=== PATIENT | male | born 1960 | race Caucasian/White ===

== ENCOUNTER → 2016-02-25 | Outpatient (CLI) | payer OTHER ==
[~2016-02-25] MED LIST: ASPI81TA11 PO; CARB200T PO; ENAL5TAB PO; LIPI40TA PO; METO25TA3 PO; NITR0.4S SL; PLAV75TA29 PO; TEGR200T PO
[2016-02-25 12:18] LABS: HEMATOCRIT 43.9 % (39.0-51.0); MEAN CELL VOLUME 90.7 FL (80.0-100.0); MEAN CORPUSCULAR HEMOGLOBIN 30.4 PG (27.0-34.0); MEAN CORPUSCULAR HGB CONC 33.5 % (32.0-36.0); PLATELET COUNT 313 TH/MM3 (150-450); RED BLOOD COUNT 4.84 MIL/MM3 (4.50-5.90); RED CELL DISTRIBUTION WIDTH 14.1 % (11.6-17.2); REVIEW FLAG FINAL; WHITE BLOOD COUNT 15.9 TH/MM3 (4.0-11.0)
[2016-02-25 12:45] LABS: ALT (GPT) 31 U/L (12-78); ANION GAP 8 MEQ/L (5-15); AST (GOT) 14 U/L (15-37); BICARBONATE 27.4 MEQ/L (21.0-32.0); BLOOD UREA NITROGEN 10 MG/DL (7-18); CHLORIDE 105 MEQ/L (98-107); GLOMERULAR FILTRATION RATE 80 ML/MIN (>89); GLUCOSE,FASTING 85 MG/DL (74-99); POTASSIUM 3.9 MEQ/L (3.5-5.1); SODIUM (NA) 140 MEQ/L (136-145)
[2016-02-25 12:55] LABS: ALKALINE PHOSPHATASE 84 U/L (45-117); HDL CHOLESTEROL 50.7 MG/DL (40.0-60.0); LDL CHOLESTEROL 137 MG/DL (0-99); TOTAL BILIRUBIN ADULT 0.5 MG/DL (0.2-1.0)
== END ==
LOC: CLAB 11:56
PROVIDERS: ATTEND Family Medicine
DX: R56.9 Unspecified convulsions (principal); Z72.0 Tobacco use; Z59.0 Homelessness
CPT/HCPCS: 36415; 80053; 80061; 80156; 84443; 85027

== ENCOUNTER 2016-04-04 16:47 | Inpatient (IN) | payer OTHER ==
[~2016-04-04 16:47] MED LIST changes: -ASPI81TA11 PO; -ENAL5TAB PO; -LIPI40TA PO; -METO25TA3 PO; -NITR0.4S SL; -PLAV75TA29 PO; -TEGR200T PO
[2016-04-04 16:49] VITALS: BP 134/77; PULSE 69; RESP 12; TEMP 98; O2SAT 96
[2016-04-04 19:00] VITALS: BP 133/84; PULSE 55; RESP 16; O2SAT 96
[2016-04-04 19:30] LABS: AUTOMATED NEUTROPHIL # 5.7 TH/MM3 (1.8-7.7); BASOPHIL # 0.2 TH/MM3 (0-0.2); BASOPHIL % 1.5 % (0.0-2.0); EOSINOPHIL # 0.4 TH/MM3 (0-0.4); EOSINOPHIL % 3.3 % (0.0-4.0); HEMATOCRIT 41.9 % (39.0-51.0); HEMO FLAGS DIFF FINAL; LYMPH % 34.6 % (9.0-44.0); LYMPHOCYTE # 3.9 TH/MM3 (1.0-4.8); MEAN CORPUSCULAR HGB CONC 33.7 % (32.0-36.0); MONO % 9.2 % (0.0-8.0); NEUT % 51.4 % (16.0-70.0); PLATELET COUNT 250 TH/MM3 (150-450); RED BLOOD COUNT 4.55 MIL/MM3 (4.50-5.90); RED CELL DISTRIBUTION WIDTH 14.2 % (11.6-17.2); WHITE BLOOD COUNT 11.2 TH/MM3 (4.0-11.0)
[2016-04-04] MEDS ORDERED: SODIUM CHLORIDE 0.9% FLUSH 5 ML FLUSH IVF PRN (19:30)
[2016-04-04] MEDS ORDERED: ASPIRIN 81 MG CHEW TAB PO ONE (19:30)
[2016-04-04] MEDS ORDERED: NITROGLYCERIN 2% OINT 1 GM PACKET TOP ONE (19:30)
[2016-04-04] MEDS ORDERED: NITROGLYCERIN 0.4 MG SL 25 TABS/BTL SL ONE (19:30)
--- NOTE | 2016-04-04 19:40 | PD ---
HPI Chief Complaint: Chest Pain Time Seen by Provider: 19:13 Travel History International Travel<30 days: No Contact w/Intl Traveler<30days: No Traveled to known affect area: No History of Present Illness HPI The patient is a 55 year old male who presents to the [facility] emergency department with a history of chest pain that he reports is intermittently been going on for the last week. He reports that he initially thought that it was respiratory related as he does have a history of smoking and was feeling short of breath when it occurred at he was riding his bike against the wind. However , yesterday the chest pain became more persistent and was occurring at rest. The patient reports that the pain as a pressure sensation. He reports having associated nausea with it, however no vomiting. He denies having any radiation of the pain. He reports that he had diaphoresis at the temporal area. He reports that he had shortness of breath associated with the pain. He denies having any chest pain currently. He does report having a history of coronary artery disease status post CT in 1996 with angioplasty and stent placement at that time. He cannot recall ever having a stress test since then. He denies taking any aspirin or other cardiac medications on a daily basis reportedly related to monetary issues. He is however taking carbamazepine for a history of seizures post traumatic brain injury. The patient denies any history of fever , cough, congestion, neck pain, abdominal pain, vomiting, diarrhea, urinary symptoms, or neurologic symptoms. 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 Arthritis: No Blood Disorders: No Anxiety: Yes Depression: Yes Heart Rhythm Problems: No Cancer: No Cardiac Catheterization: Yes Cardiovascular Problems: Yes (mi) High Cholesterol: Yes Chemotherapy: No Chest Pain: Yes Congestive Heart Failure: No Coronary Artery Disease: Yes Diminished Hearing: Yes (right ear) Endocrine: No Gastrointestinal Disorders: No Genitourinary: No Hypertension: No Immune Disorder: No Musculoskeletal: No Neurologic: Yes Psychiatric: Yes (CONTROL ISSUES) Reproductive: No Respiratory: No Myocardial Infarction: Yes Radiation Therapy: No Seizures: Yes Tetanus Vaccination: Unknown Influenza Vaccination: No Past Surgical History Narrative Surgical The patient's past surgical history is significant for cardiac catheterization with stent placement, left knee surgery AICD: No Arteriovenous Shunt: No Cardiac Surgery: Yes (ANGIOPLASTY) Coronary Stent: Yes (1996) Insulin Pump: No Joint Replacement: No Pacemaker: No Other Surgery: No Social History Alcohol Use: Yes (rarely) Tobacco Use: Yes (1 ppd) Substance Use: Yes ([facility]) Allergies-Medications (Allergen,Severity, Reaction): Coded Allergies: No Known Allergies (Verified , 04/04/16) Reported Meds & Prescriptions Reported Meds & Active Scripts Active Reported Carbamazepine 200 Mg Tab 200 Mg PO TID Review of Systems Except as stated in HPI: all other systems reviewed are Neg General / Constitutional: No: Fever Eyes: No: Visual changes HENT: No: Headaches, Rhinorrhea, Congestion Cardiovascular: Positive: Chest Pain or Discomfort, Dyspnea on exertion Respiratory: Positive: Shortness of Breath, No: Cough Gastrointestinal: Positive: Nausea, No: Vomiting, Diarrhea, Abdominal Pain, Changes in Bowel Habits Genitourinary: No: Dysuria Musculoskeletal: No: Pain Skin: No Rash Neurologic: No: Weakness, Focal Abnormalities, Change in Mentation, Slurred Speech, Sensory Disturbance Psychiatric: No: Depression Endocrine: No: Polydipsia Hematologic/Lymphatic: No: Easy Bruising Physical Exam Narrative General: The patient is a well-developed well-nourished male in no acute distress. Head and Neck exam: Head is normocephalic atraumatic. Eyes: Pupils are equal round and reactive to light. Nose: Midline septum with pink mucous membranes Mouth: Dentition unremarkable. Moist mucus membranes. Posterior oropharynx is not erythematous. No tonsillar hypertrophy. Uvula midline. Airway patent. Neck: No palpable lymphadenopathy. No nuchal rigidity. No thyromegaly. Cardiovascular: Regular rate and rhythm without murmurs, gallops, or rubs. No pulse deficit to the extremities and simultaneous auscultation and palpation of his radial artery. Lungs: Clear to auscultation bilaterally. No wheezes, rhonchi, or rales. Abdomen: Soft, without tenderness to palpation in all 4 quadrants of the abdomen. No guarding, rebound, or rigidity. Normal bowel sounds are audible Extremities: No clubbing, cyanosis, or edema. 2+ pulses in all 4 extremities. No calf tenderness on palpation. Back: No spinous process tenderness to palpation. No costovertebral angle tenderness to palpation. Neurologic Exam: Grossly nonfocal. Skin Exam: No rash noted. Intact skin that is warm and dry. Data Data Last Documented VS Vital Signs Date Time Temp Pulse Resp B/P Pulse Ox O2 Delivery O2 Flow Rate FiO2 04/04/16 19:08 58 98 Room Air 04/04/16 16:49 98.0 12 134/77 Orders Electrocardiogram (04/04/16 18:45) B-Type Natriuretic Peptide (04/04/16 19:16) Ckmb (Isoenzyme) Profile (04/04/16 19:16) Complete Blood Count With Diff (04/04/16 19:16) Comprehensive Metabolic Panel (04/04/16 19:16) Magnesium (Mg) (04/04/16 19:16) Prothrombin Time / Inr (Pt) (04/04/16 19:16) Act Partial Throm Time (Ptt) (04/04/16 19:16) Troponin I (04/04/16 19:16) Lipase (04/04/16 19:16) Chest, Single Ap (04/04/16 19:16) Ecg Monitoring (04/04/16 19:16) Bilateral Bp Monitoring (04/04/16 19:16) Iv Access Insert/Monitor (04/04/16 19:16) Oximetry (04/04/16 19:16) Oxygen Administration (04/04/16 19:16) Aspirin Chew (Aspirin Chew) (04/04/16 19:30) Nitroglycerin 2% Oint (Nitroglycerin 2% (04/04/16 19:30) Sodium Chloride 0.9% Flush (Ns Flush) (04/04/16 19:30) Nitroglycerin Sl (Nitrostat Sl) (04/04/16 19:30) CKMB (04/04/16 19:10) CKMB% (04/04/16 19:10) Aspirin Chew (Aspirin Chew) (04/04/16 20:00) Heparin Infusion VANDANA.Q1H (04/04/16 19:55) Heparin Inj (Heparin Inj) (04/04/16 20:00) Heparin-D5w Inj (Heparin-D5w Inj) (04/04/16 20:00) Act Partial Throm Time (Ptt) (04/04/16 19:55) Prothrombin Time / Inr (Pt) (04/04/16 19:55) Cbc No Diff, Includes Plts (04/04/16 19:55) Cbc No Diff, Includes Plts (04/07/16 06:00) Act Partial Throm Time (Ptt) (04/05/16 02:55) Occult Blood (Hemoccult) Stool (04/04/16 19:55) Admit Order (Ed Use Only) (04/04/16 20:23) Consult Cardiology (04/04/16 ) Labs Laboratory Tests Test 04/04/16 19:10 White Blood Count 11.2 TH/MM3 Red Blood Count 4.55 MIL/MM3 Hemoglobin 14.1 GM/DL Hematocrit 41.9 % Mean Corpuscular Volume 92.0 FL Mean Corpuscular Hemoglobin 31.0 PG Mean Corpuscular Hemoglobin 33.7 % Concent Red Cell Distribution Width 14.2 % Platelet Count 250 TH/MM3 Mean Platelet Volume 7.4 FL Neutrophils (%) (Auto) 51.4 % Lymphocytes (%) (Auto) 34.6 % Monocytes (%) (Auto) 9.2 % Eosinophils (%) (Auto) 3.3 % Basophils (%) (Auto) 1.5 % Neutrophils # (Auto) 5.7 TH/MM3 Lymphocytes # (Auto) 3.9 TH/MM3 Monocytes # (Auto) 1.0 TH/MM3 Eosinophils # (Auto) 0.4 TH/MM3 Basophils # (Auto) 0.2 TH/MM3 CBC Comment DIFF FINAL Differential Comment Prothrombin Time 10.0 SEC Prothromb Time International 0.9 RATIO Ratio Activated Partial 26.7 SEC Thromboplast Time Sodium Level 139 MEQ/L Potassium Level 4.4 MEQ/L Chloride Level 105 MEQ/L Carbon Dioxide Level 25.1 MEQ/L Anion Gap 9 MEQ/L Blood Urea Nitrogen 7 MG/DL Creatinine 0.83 MG/DL Estimat Glomerular Filtration 96 ML/MIN Rate Random Glucose 91 MG/DL Calcium Level 8.4 MG/DL Magnesium Level 2.4 MG/DL Total Bilirubin 0.3 MG/DL Aspartate Amino Transf 37 U/L (AST/SGOT) Alanine Aminotransferase 33 U/L (ALT/SGPT) Alkaline Phosphatase 87 U/L Total Creatine Kinase 179 U/L Creatine Kinase MB 4.5 NG/ML Troponin I 2.68 NG/ML B-Type Natriuretic Peptide 231 PG/ML Total Protein 7.2 GM/DL Albumin 3.6 GM/DL Lipase 105 U/L MDM Medical Decision Making Medical Screen Exam Complete: Yes Emergency Medical Condition: Yes Medical Record Reviewed: Yes Interpretation(s) Laboratory Tests Test 04/04/16 19:10 White Blood Count 11.2 TH/MM3 Red Blood Count 4.55 MIL/MM3 Hemoglobin 14.1 GM/DL Hematocrit 41.9 % Mean Corpuscular Volume 92.0 FL Mean Corpuscular Hemoglobin 31.0 PG Mean Corpuscular Hemoglobin 33.7 % Concent Red Cell Distribution Width 14.2 % Platelet Count 250 TH/MM3 Mean Platelet Volume 7.4 FL Neutrophils (%) (Auto) 51.4 % Lymphocytes (%) (Auto) 34.6 % Monocytes (%) (Auto) 9.2 % Eosinophils (%) (Auto) 3.3 % Basophils (%) (Auto) 1.5 % Neutrophils # (Auto) 5.7 TH/MM3 Lymphocytes # (Auto) 3.9 TH/MM3 Monocytes # (Auto) 1.0 TH/MM3 Eosinophils # (Auto) 0.4 TH/MM3 Basophils # (Auto) 0.2 TH/MM3 CBC Comment DIFF FINAL Differential Comment Prothrombin Time 10.0 SEC Prothromb Time International 0.9 RATIO Ratio Activated Partial 26.7 SEC Thromboplast Time Sodium Level 139 MEQ/L Potassium Level 4.4 MEQ/L Chloride Level 105 MEQ/L Carbon Dioxide Level 25.1 MEQ/L Anion Gap 9 MEQ/L Blood Urea Nitrogen 7 MG/DL Creatinine 0.83 MG/DL Estimat Glomerular Filtration 96 ML/MIN Rate Random Glucose 91 MG/DL Calcium Level 8.4 MG/DL Magnesium Level 2.4 MG/DL Total Bilirubin 0.3 MG/DL Aspartate Amino Transf 37 U/L (AST/SGOT) Alanine Aminotransferase 33 U/L (ALT/SGPT) Alkaline Phosphatase 87 U/L Total Creatine Kinase 179 U/L Creatine Kinase MB 4.5 NG/ML Troponin I 2.68 NG/ML B-Type Natriuretic Peptide 231 PG/ML Total Protein 7.2 GM/DL Albumin 3.6 GM/DL Lipase 105 U/L Last Impressions Chest X-Ray 04/04/16 1916 Signed Impressions: Service Date/Time: Monday, April 04, 2016 19:35 - CONCLUSION: No acute disease. Jeffrey Veloz MD Differential Diagnosis Acute coronary syndrome, versus acid reflux, versus COPD exacerbation, versus pleurisy, versus pneumonia, versus new-onset congestive heart failure Narrative Course During the course of the patients emergency department visit, the patients history, examination, and differential diagnosis were reviewed with the patient. The patient had IV access obtained and blood work sent for analysis. The patient was placed on a manager cardiac with oximetry and blood pressure monitoring. An EKG was ordered. An EKG was done out in triage due to a delay and the patient being brought back to a bed as the ED was busy. At 1854 the ECG was read by a physician the ECG was noted to have ST segment elevation in V1 , V2, V3, T waves inverted in V4, V5, lead 3, aVF with downsloping ST segments in leads 2, 3, aVF, however this was compared to prior EKGs done at this facility, last on March 25, 2014 and it was somewhat similar appearing, therefore the patient was not called as a STEMI alert as the patient denied having chest pain at that time. The patient continues to deny chest pain on my initial evaluation. The patient was provided aspirin 162 mg by mouth 1, sublingual nitroglycerin 1 when necessary chest pain, nitroglycerin 1 inch to the chest wall. The patients laboratory studies were reviewed and remarkable for a white count 11.2, hemoglobin 14.1, platelets 250 with 9.2 monocytes, CMP is remarkable for calcium of 8.4, CPK 175 with an MB percent of 4.5, troponin I 2.68, BNP 231, lipase 105, PT 10, PTT 26.7. Given the patient's elevated troponin and abnormal EKG a call was immediately placed out to the [employer] on-call, Dr. Watts. I spoke to him and also transmitted to him the EKG that was done. As the patient continues to deny any chest pain currently, he agreed with the plan to proceed with continuation of nitroglycerin paste per chest wall. He agreed with plan for a heparin bolus and then drip by protocol. He requested that the patient be made nothing by mouth after midnight. He plans to take the patient to the [facility] in the morning. Radiology studies were reviewed and remarkable for a chest x-ray that shows no acute abnormality. The patients results were discussed with the patient, including the plan of care. I explained that further testing and/ or monitoring is indicated based on the patients history, examination, and/ or laboratory findings. Therefore, I recommended admission for additional evaluation. The patient expressed understanding and was agreeable with this plan. The patient was admitted to the hospital in guarded condition and [facility] Critical Care Narrative Aggregate critical care time was 33 minutes. Time to perform other separately billable procedures was not included in the critical care time. My time did not include minutes spent treating any other patients simultaneously or on activities that did not directly contribute to the patient's treatment. The services I provided to this patient were to treat and/or prevent clinically significant deterioration that could result in: Cardiovascular collapse, respiratory failure I provided critical care services requiring my management, as noted below: Chart data review, documentation time, medication orders and management, vital sign assessments/reviewing monitor data, ordering and reviewing lab tests, ordering and interpreting/reviewing x-rays and diagnostic studies, care of the patient and discussion of the patient with the admitting physicians. Physician Communication Physician Communication I spoke to Dr. Watts, the [employer] intern[employer] it security consulting director at approximately 8:05 PM. We reviewed the patient's prior EKG and current EKG findings and the fact that the patient does have an elevated troponin, however he is reporting no chest pain currently. He requested the patient be continued on aspirin, Nitropaste, and heparin as I previously ordered. He will see the patient consultation in the morning. The patient's [facility] The patient's case was discussed with Dr. Ellsworth who did agree to admit the patient for further evaluation and treatment at this time Diagnosis Primary Impression: Myocardial infarction Qualified Code: I21.4 - Non-ST elevation (NSTEMI) myocardial infarction Admitting Information Admitting Physician Requests: it Gayla Carreon MD Apr 04, 2016 19:40
[2016-04-04 19:43] LABS: APTT (PATIENT) 26.7 SEC (24.3-30.1); INTERNATIONAL NORMALIZED RATIO 0.9 RATIO
--- NOTE | 2016-04-04 19:49 | RADRPT ---
EXAM DATE/TIME: 04/04/2016 19:35 [facility] COMPARISON: CHEST SINGLE AP, March 25, 2014, 14:45. INDICATIONS : Chest pain. MEDICAL HISTORY : None. SURGICAL HISTORY : None. ENCOUNTER: Initial ACUITY: 2 days PAIN SCORE: 8/10 LOCATION: Bilateral chest FINDINGS: A single view of the chest demonstrates the lungs to be symmetrically aerated without evidence of mas s, infiltrate or effusion. The cardiomediastinal contours are unremarkable. There is an old healed f racture deformity of the right clavicle and third right rib. CONCLUSION: No acute disease. Jeffrey Veloz MD on April 04, 2016 at 19:47 Board Certified Radiologist. This report was verified electronically.
[2016-04-04 19:52] LABS: ALKALINE PHOSPHATASE 87 U/L (45-117); ALT (GPT) 33 U/L (12-78); ANION GAP 9 MEQ/L (5-15); AST (GOT) 37 U/L (15-37); BICARBONATE 25.1 MEQ/L (21.0-32.0); BLOOD UREA NITROGEN 7 MG/DL (7-18); CHLORIDE 105 MEQ/L (98-107); CREATINE KINASE 179 U/L (39-308); GLOMERULAR FILTRATION RATE 96 ML/MIN (>89); MAGNESIUM 2.4 MG/DL (1.5-2.5); SODIUM (NA) 139 MEQ/L (136-145); TOTAL BILIRUBIN ADULT 0.3 MG/DL (0.2-1.0)
[2016-04-04 19:54] LABS: POTASSIUM 4.4 MEQ/L (3.5-5.1)
[2016-04-04 20:00] VITALS: BP_SYST 132; BP_SYST 133; BP_DIAS 80; BP_DIAS 84; PULSE 55; RESP 16; O2SAT 92
[2016-04-04] MEDS ORDERED: HEPARIN SODIUM - IV 10,000 UNITS/10 ML VIAL IV ONE (20:00)
[2016-04-04] MEDS ORDERED: ASPIRIN 81 MG CHEW TAB CHEW ONE (20:00)
[2016-04-04] MEDS ORDERED: HEPARIN-D5W INJ 250 ML IV SCH (20:00)
[2016-04-04 20:08] LABS: CKMB 4.5 NG/ML (0.5-3.6)
[2016-04-04] MEDS ORDERED: NALOXONE HCL 0.4 MG/ML AMP IV PRN (20:45)
[2016-04-04] MEDS ORDERED: SODIUM CHLORIDE 0.9% FLUSH 5 ML FLUSH FLUSH PRN (20:45)
[2016-04-04 20:51] LABS: HEMATOCRIT 41.6 % (39.0-51.0); MEAN CELL VOLUME 91.3 FL (80.0-100.0); MEAN CORPUSCULAR HEMOGLOBIN 31.3 PG (27.0-34.0); MEAN CORPUSCULAR HGB CONC 34.3 % (32.0-36.0); PLATELET COUNT 242 TH/MM3 (150-450); RED BLOOD COUNT 4.55 MIL/MM3 (4.50-5.90); RED CELL DISTRIBUTION WIDTH 14.3 % (11.6-17.2); REVIEW FLAG FINAL; WHITE BLOOD COUNT 9.2 TH/MM3 (4.0-11.0)
[2016-04-04 21:00] VITALS: BP 130/81; PULSE 53; RESP 18; O2SAT 96
[2016-04-04] MEDS: SODIUM CHLORIDE 0.9% FLUSH 5 ML FLUSH FLUSH SCH (21:00)
[2016-04-04 21:01] LABS: APTT (PATIENT) 24.3 SEC (24.3-30.1); INTERNATIONAL NORMALIZED RATIO 0.9 RATIO; PROTHROMBIN TIME - PATIENT 10.1 SEC (9.8-11.6)
[2016-04-04 22:00] VITALS: BP 129/78; PULSE 53; RESP 18; O2SAT 94
[2016-04-04 23:03] VITALS: BP 131/77; PULSE 49; RESP 16; O2SAT 94
[2016-04-05] VITALS (13 sets, daily range): BP systolic 94–146; BP diastolic 56–95; PULSE 53–78; RESP 15–20; TEMP 98; O2SAT 94–98
--- NOTE | 2016-04-05 01:41 | HHI.HP ---
[facility] Service [place] [facility] Primary Care Physician Unknown Admission Diagnosis unstable angina, elevated troponin I, ECG abnormalities Diagnoses: Chief Complaint: chest pain Travel History International Travel<30 Days: No Contact w/Intl Traveler <30 Da: No Traveled to Known Affected Are: No History of Present Illness History taken from patient and ED physician. 55 y/o male with a history of CAD, and seizures presented with chest pain that has been getting worse the last 2 days. Patient states he was having sharp chest pain that started two days ago and has slowly been getting worse. He says it is worse with exertion and it radiates to his left arm. He has associated symptoms of nausea, sob, and sweating. In 1996 he did have a stent placed for CAD, and he says this is the same pain he experienced although less in severity. He does not routinely take ASA at home. No history of DVTs, or CVAs. Review of Systems Constitutional: DENIES: Fever, Chills Respiratory: COMPLAINS OF: Shortness of breath, DENIES: Cough, Sputum production Cardiovascular: COMPLAINS OF: Chest pain, DENIES: Lower Extremity Edema Gastrointestinal: COMPLAINS OF: Nausea, DENIES: Constipation, Diarrhea, Vomiting Genitourinary: DENIES: Hematuria, Dysuria Musculoskeletal: DENIES: Back pain, Neck pain Integumentary: DENIES: Rash Hematologic/lymphatic: DENIES: Lymphadenopathy Immunologic/allergic: DENIES: Urticaria Neurologic: DENIES: Headache Past Family Social History Past Medical History Seizures due to TBI CAD Past Surgical History Stent placement in 1996 TKR Reported Medications Reported Meds & Active Scripts Active Reported Carbamazepine 200 Mg Tab 200 Mg PO TID Allergies: Coded Allergies: No Known Allergies (Verified , 04/04/16) Active Ordered Medications Current Medications Medications (Trade) Dose Ordered Sig/Casandra Route Start Time Stop Time Status Last Admin (Heparin-D5W Inj) 250 ml @ 0 mls/hr TITRATE IV 04/04/16 20:00 04/04/16 21:06 (NS Flush) 2 ml UNSCH PRN FLUSH 04/04/16 20:45 (NS Flush) 2 ml BID FLUSH 04/04/16 21:00 (Narcan Inj) 0.4 mg UNSCH PRN IV 04/04/16 20:45 Family History Patient denies any family history Social History Tobacco use: cigars daily Alcohol use: occasionally Illicit drug use: Marijuana Physical Exam Vital Signs Vital Signs Date Time Temp Pulse Resp B/P Pulse Ox O2 Delivery O2 Flow Rate FiO2 04/04/16 19:08 58 98 Room Air 04/04/16 16:49 98.0 69 12 134/77 96 Room Air Physical Exam GENERAL: This is a well-nourished, well-developed patient, in no apparent distress. SKIN: No rashes, ecchymoses or lesions. Cool and dry. HEAD: Atraumatic. Normocephalic. EYES: Pupils equal round and reactive. ENT: Nose without bleeding, purulent drainage or septal hematoma. Airway patent. NECK: Trachea midline. No JVD CARDIOVASCULAR: Regular rate and rhythm without murmurs, gallops, or rubs. RESPIRATORY: Clear to auscultation. Breath sounds equal bilaterally. No wheezes , rales, or rhonchi. GASTROINTESTINAL: Abdomen soft, non-tender, nondistended. No guarding. MUSCULOSKELETAL: Extremities without clubbing, cyanosis, or edema. No joint tenderness, effusion, or edema noted. No calf tenderness. NEUROLOGICAL: Awake and alert. Motor and sensory grossly within normal limits. Normal speech. Laboratory Laboratory Tests Test 04/04/16 04/04/16 19:10 20:40 White Blood Count 11.2 9.2 Red Blood Count 4.55 4.55 Hemoglobin 14.1 14.3 Hematocrit 41.9 41.6 Mean Corpuscular Volume 92.0 91.3 Mean Corpuscular Hemoglobin 31.0 31.3 Mean Corpuscular Hemoglobin 33.7 34.3 Concent Red Cell Distribution Width 14.2 14.3 Platelet Count 250 242 Mean Platelet Volume 7.4 7.6 Neutrophils (%) (Auto) 51.4 Lymphocytes (%) (Auto) 34.6 Monocytes (%) (Auto) 9.2 Eosinophils (%) (Auto) 3.3 Basophils (%) (Auto) 1.5 Neutrophils # (Auto) 5.7 Lymphocytes # (Auto) 3.9 Monocytes # (Auto) 1.0 Eosinophils # (Auto) 0.4 Basophils # (Auto) 0.2 CBC Comment DIFF FINAL Differential Comment Prothrombin Time 10.0 10.1 Prothromb Time International 0.9 0.9 Ratio Activated Partial 26.7 24.3 Thromboplast Time Sodium Level 139 Potassium Level 4.4 Chloride Level 105 Carbon Dioxide Level 25.1 Anion Gap 9 Blood Urea Nitrogen 7 Creatinine 0.83 Estimat Glomerular Filtration 96 Rate Random Glucose 91 Calcium Level 8.4 Magnesium Level 2.4 Total Bilirubin 0.3 Aspartate Amino Transf 37 (AST/SGOT) Alanine Aminotransferase 33 (ALT/SGPT) Alkaline Phosphatase 87 Total Creatine Kinase 179 Creatine Kinase MB 4.5 Troponin I 2.68 B-Type Natriuretic Peptide 231 Total Protein 7.2 Albumin 3.6 Lipase 105 Result Diagram: 04/04/16203904/04/161909 Imaging Last Impressions Chest X-Ray 04/04/161915 Signed Impressions: Service Date/Time: Monday, April 04, 2016 19:35 - CONCLUSION: No acute disease. Jeffrey Veloz MD Assessment and Plan Problem List: (1) NSTEMI (non-ST elevated myocardial infarction) ICD Code: I21.4 Status: Acute (2) Seizures ICD Code: R56.9 Status: Chronic (3) Tobacco abuse ICD Code: Z72.0 Status: Chronic Assessment and Plan 55 y/o male with a history of CAD and seizures presented with: NSTEMI/ Unstable angina EKG shows: Biphasic T waves, ST differential depression in the inferior and anterior lateral leads, LVH Labs: troponin 2.68 -Consult cardiology, Dr. Watts is planning a cath in AM -Heparin drip -Serial Troponin, and ekgs Seizures, Chronic -Cont home medications Tobacco abuse, chronic -Tobacco cessation DVT prophylaxis: Heparin Written by Betty PETER, acting as scribe for Dr. Ellsworth on 04/05/16 at 0125. The documentation accurately reflects the work performed [id number] and decisions made by me and the physician Dr Ellsworth on 04/05/16. The documentation accurately reflects the work performed [id number] by me on at 0125 Discussed Condition With Patient and ED physician Physician Certification 2 Midnight Certification Type: Admission for Inpatient Services Order for Inpatient Services The services are ordered in accordance with Medicare regulations or non- Medicare payer requirements, as applicable. In the case of services not specified as inpatient-only, they are appropriately provided as inpatient services in accordance with the 2-midnight benchmark. Estimated LOS (days): 3 days is the estimated time the patient will need to remain in the hospital, assuming treatment plan goals are met and no additional complications. Post-Hospital Plan: Betty Holloway Apr 05, 2016 01:41 Ann Marie Ellsworth MD Apr 05, 2016 08:01
[2016-04-05 03:04] LABS: APTT (PATIENT) 36.1 SEC (24.3-30.1)
[2016-04-05] MEDS ORDERED: MORPHINE SULFATE 4 MG/ML INJ IV PRN (09:00)
[2016-04-05] MEDS ORDERED: ONDANSETRON HCL 4 MG/2 ML VIAL IVP PRN (09:00)
[2016-04-05] MEDS ORDERED: BISACODYL 10 MG SUPP PR PRN (09:00)
[2016-04-05] MEDS ORDERED: ASPIRIN EC 325 MG TABEC PO SCH (09:00)
[2016-04-05] MEDS ORDERED: LORazepam 2 MG/ML VIAL IV PUSH PRN (09:00)
[2016-04-05] MEDS ORDERED: ACETAMINOPHEN/HYDROcodone 325 MG/7.5 MG TAB PO PRN (09:00)
[2016-04-05] MEDS ORDERED: SENNOSIDES 8.6 MG TAB PO PRN (09:00)
[2016-04-05] MEDS ORDERED: ACETAMINOPHEN/HYDROcodone 325 MG/5 MG TAB PO PRN (09:00)
[2016-04-05] MEDS: SODIUM CHLORIDE 0.9% FLUSH 5 ML FLUSH FLUSH SCH ×2 (09:00→21:00)
[2016-04-05] MEDS ORDERED: ACETAMINOPHEN 325 MG TAB PO PRN ×2 (09:00)
[2016-04-05] MEDS ORDERED: NITROGLYCERIN 0.4 MG SL 25 TABS/BTL SL PRN (09:00)
[2016-04-05] MEDS ORDERED: MAGNESIUM HYDROXIDE SUSP 30 ML CUP PO PRN (09:00)
[2016-04-05] MEDS: carBAMazepine 200 MG TAB PO SCH ×3 (09:00→20:30)
[2016-04-05] MEDS ORDERED: ASPIRIN 325 MG TAB PO SCH (09:30)
[2016-04-05] MEDS ORDERED: SODIUM CHLOR 0.9% 1000 ML INJ 1,000 ML IV SCH ×2 (09:30→12:56)
[2016-04-05] MEDS ORDERED: diphenhydrAMINE HCL 50 MG CAP PO SCH (09:30)
[2016-04-05] MEDS ORDERED: DIAZEPAM 10 MG TAB PO SCH (09:30)
[2016-04-05] MEDS: METOPROLOL TARTRATE 25 MG TAB PO SCH ×3 (10:44→20:34)
[2016-04-05] MEDS: DOCUSATE SODIUM 100 MG CAP PO SCH ×2 (10:46→20:29)
--- NOTE | 2016-04-05 10:47 | HHI.PR ---
Subjective Remarks Data and third late. Follow-up [place]. Denies chest pain. Discussed with RN Objective Vitals Vital Signs Date Time Temp Pulse Resp B/P Pulse Ox O2 Delivery O2 Flow Rate FiO2 04/05/16 09:00 56 15 142/74 95 Room Air 04/05/16 07:35 54 15 135/83 96 Room Air 04/05/16 04:00 56 16 129/81 95 Nasal Cannula 2 04/05/16 02:00 96 Nasal Cannula 2 04/05/16 01:48 98 Room Air 04/05/16 00:00 53 16 130/81 94 Room Air 04/04/16 23:03 49 16 131/77 94 Room Air 04/04/16 22:00 53 18 129/78 94 Room Air 04/04/16 21:00 53 18 130/81 96 Room Air 04/04/16 20:00 133/84 132/80 04/04/16 20:00 55 16 132/80 92 Room Air 04/04/16 19:08 58 98 Room Air 04/04/16 19:00 55 16 133/84 96 Room Air 04/04/16 16:49 98.0 69 12 134/77 96 Room Air Result Diagram: 04/04/16203904/04/161909 Imaging Last Impressions Chest X-Ray 04/04/161915 Signed Impressions: Service Date/Time: Monday, April 04, 2016 19:35 - CONCLUSION: No acute disease. Jeffrey Veloz MD Objective Remarks GENERAL: This is a well-nourished, well-developed patient, in no apparent distress. SKIN: No rashes, ecchymoses or lesions. Cool and dry. HEAD: Atraumatic. Normocephalic. EYES: Pupils equal round and reactive. ENT: Nose without bleeding, purulent drainage or septal hematoma. Airway patent. NECK: Trachea midline. No JVD CARDIOVASCULAR: Regular rate and rhythm without murmurs, gallops, or rubs. RESPIRATORY: Clear to auscultation. Breath sounds equal bilaterally. No wheezes , rales, or rhonchi. GASTROINTESTINAL: Abdomen soft, non-tender, nondistended. No guarding. MUSCULOSKELETAL: Extremities without clubbing, cyanosis, or edema. No joint tenderness, effusion, or edema noted. No calf tenderness. NEUROLOGICAL: Awake and alert. Motor and sensory grossly within normal limits. Normal speech. Procedures [facility] A/P Problem List: (1) NSTEMI (non-ST elevated myocardial infarction) ICD Code: I21.4 Status: Acute (2) Seizures ICD Code: R56.9 Status: Chronic (3) Tobacco abuse ICD Code: Z72.0 Status: Chronic Assessment and Plan 55 y/o male with a history of CAD and seizures presented with: NSTEMI/ Unstable angina status post left heart catheterization with RCA stenting. Continue aspirin, Plavix, enalapril, metoprolol and Lipitor. Respiratory modification. Follow-up A1c and lipid profile. Tobacco cessation Cardiomyopathy ejection fraction 25% secondary to above. Uptitrate 80s and beta aishwarya if tolerated. May need AICD Seizures, Chronic -Cont home medications and seizure precautions Tobacco abuse, chronic -Tobacco cessation DVT prophylaxis: Heparin Discharge Planning Discharge in 1-2 days Zbigniew Dan MD Apr 05, 2016 10:47
--- NOTE | 2016-04-05 11:18 | MB ---
cc: KAT RUTHERFORD DATE OF CONSULTATION 04/05/2016 REASON FOR CONSULTATION Acute myocardial infarction. HISTORY OF PRESENT ILLNESS The patient is a somewhat poor historian. He is a 55-year-old white male with a history of coronary artery disease, seizure disorder, traumatic brain injuries who was in his usual state of health up until several days ago when he began to experience intermittent episodes of chest pain. The patient states he has had episodic band-like chest discomfort described as "pressure" associated with shortness of breath for the past few days. The longest episode, he believes has been 30 minutes. Since coming into the hospital, he has had no further chest discomfort. He denies dizziness, syncope, near-syncope, palpitations, pedal edema, paroxysmal nocturnal dyspnea. PAST MEDICAL HISTORY As above. The patient states he had a stent placed in 1996, although previous records suggest a stent was done in approximately 2004. PAST SURGICAL HISTORY Left knee surgery due to fractured patella. CARDIAC MEDICATIONS AT HOME None ALLERGIES NO KNOWN DRUG ALLERGIES. FAMILY HISTORY There is no significant family history of early myocardial infarction. SOCIAL HISTORY The patient smokes cigars. He also smokes one pack of cigarettes per day. Rarely he drinks alcohol. REVIEW OF SYSTEMS As in the history of present illness, otherwise negative or noncontributory. He also denies abdominal pain, melena, dyspepsia, bright red blood per rectum, headache. PHYSICAL EXAM On physical examination, his blood pressure 142/74 with a pulse of 56, respirations 15. GENERAL: He is a well-developed, well-nourished white male in no acute distress HEENT: Jugular venous pressure is normal. Carotid pulses are 2+ bilaterally and without bruits. CHEST: Examination of the chest reveals clear lung solorzano. CARDIAC: On cardiac examination, he has a regular rhythm and rate without S3, S4 or murmur. ABDOMEN: On abdominal examination, he has a soft, nontender abdomen. Bowel sounds are present. There is no definite hepatosplenomegaly. EXTREMITIES: Examination of extremities reveals no clubbing, cyanosis or edema. Peripheral pulses are normal throughout. LABORATORY DATA Includes normal CBC, troponin 2.68, BUN 7, creatinine is 0.83, potassium 4.4, INR 0.9. Chest x-ray shows no acute disease. EKG shows sinus bradycardia, T-wave abnormality consider inferior and anterolateral ischemia. IMPRESSION Acute ifa-XP-gkrieoyxa myocardial infarction in this 55-year-old white male with a history of seizure disorder, traumatic brain injuries, coronary artery disease status post percutaneous coronary intervention possibly in 2004. Since coming into hospital, he has been angina free. There is no evidence for congestive heart failure or arrhythmias so far. Cardiac enzymes are consistent with myocardial infarction. He most likely has severe LAD disease. Because of the instability of his symptoms, I have recommended he undergo cardiac catheterization with probable percutaneous coronary intervention. The nature of these procedures and potential risks including but not limited to , myocardial infarction, stroke, arrhythmia, bleeding, infection, renal failure have been outlined. He agrees to proceed. RECOMMENDATIONS 1. Beta aishwarya and JOSE E inhibitor therapy. 2. Check a fasting lipid profile. 3. Cardiac catheterization today MD ABHIJIT Mujica/MARY GRACE /9:26 AM /11:10 AM ERVIN
[2016-04-05] MEDS ORDERED: MIDAZOLAM HCL 2 MG/2 ML VIAL ONE (11:37)
[2016-04-05] MEDS ORDERED: HEPARIN-NS/PF INJ 500 ML ONE (11:37)
[2016-04-05] MEDS ORDERED: TIROFIBAN INFUSION INJ 250 ML IV ONE (12:06)
[2016-04-05] MEDS ORDERED: HEPARIN SODIUM - IV 10,000 UNITS/10 ML VIAL ONE (12:06)
[2016-04-05] MEDS ORDERED: ADENOSINE STRESS TEST INJ 90 MG/30 ML VIAL ONE (12:24)
[2016-04-05] MEDS ORDERED: IOHEXOL 350 MG/ML 100 ML BTL (for Cath Lab) OTHER ONE (12:40)
[2016-04-05] MEDS ORDERED: CLOPIDOGREL 300 MG TAB ONE (12:46)
[2016-04-05] MEDS ORDERED: TIROFIBAN INFUSION INJ 250 ML IV SCH (12:56)
[2016-04-05] MEDS ORDERED: MISC INFORMATION XX ONE (13:00)
[2016-04-05] MEDS ORDERED: TEMAZEPAM 15 MG CAP PO PRN (13:00)
[2016-04-05] MEDS ORDERED: SODIUM CHLORIDE 0.9% FLUSH 5 ML FLUSH IVF PRN (13:00)
--- NOTE | 2016-04-05 13:10 | MA ---
cc: KAT RUTHERFORD DATE 04/05/2016 PROCEDURE Left heart catheterization, selective coronary angiography, left ventriculography, angioplasty and stent of the proximal right coronary, fractional flow reserve (FFR) measurement of the proximal LAD. PROCEDURE NOTE The patient was brought to the cardiac catheterization laboratory in a fasting state after having signed informed consent. The right groin was prepped and draped as per policy and anesthetized with 1% lidocaine. Arterial access was obtained via the right femoral artery and a 6[place] sheath placed. Coronary arteriography was performed using 6[place] Damien left 4.0 and right progressive catheters. Left ventriculography was done using a standard 6[place] pigtail. Percutaneous coronary intervention was done as described below. There were no apparent immediate complications. HEMODYNAMIC RESULTS Left ventricle 160 with an end-diastolic pressure of 15-20. Aorta 157/82 with a mean of 112. There was no significant transvalvular aortic gradient on pullback of the pigtail catheter. CORONARY ARTERIOGRAPHY The left main is a fairly large caliber vessel with mild distal disease up to 10 % severity. The left anterior descending demonstrates possibly two overlapping stents in its proximal portion. The more distal stent is somewhat difficult to visualize. One-view suggests possibly up to 60% restenosis in this stent. The mid to distal LAD overall has minimal luminal irregularities. There is a fairly large first diagonal which has diffuse ostial to proximal disease resulting in up to 50% stenosis. A small second diagonal has minimal luminal irregularities. The left circumflex is a fairly large vessel which has overall diffuse minimal disease. There is up to 10% stenosis in the proximal and mid-left circumflex. The left circumflex gives rise to two medium sized obtuse marginal's which have minimal luminal irregularities proximally. The right coronary artery is a fairly large dominant vessel with diffuse proximal disease resulting in up to 70% stenosis. The mid right coronary has 20% eccentric stenosis. The distal right coronary has minimal luminal irregularities. LEFT VENTRICULOGRAPHY Contrast injection of the left ventricle reveals mid to distal anterior akinesis and severe hypokinesis of the inferior wall. Ejection fraction is estimated at 25%. There is also moderate mitral regurgitation. PERCUTANEOUS CORONARY INTERVENTION DESCRIPTION Aggrastat was given as per protocol. Adequate heparin was given during the procedure to achieve an ACT greater than 250 seconds. Using a 6[place] hockey-stick guiding catheter with side holes, the ostium of the right coronary artery was re-engaged. Using a 0.014 [place] guidewire, the proximal disease was crossed without difficulty and the tip of the wire positioned distally. Predilation was done using a 3.0-mm Euphora balloon catheter. Stenting was done using a 3.5 x 26 mm bare metal Integrity stent which was deployed at 13 atmospheres for 30 seconds. Final angiography shows overall good results with reduction of the fairly diffuse disease to roughly 0% residual with no definite evidence for dissection or distal embolization. Due to the borderline nature of the proximal LAD disease, and because of the anterior/lateral ST/T changes on the patient's EKG, it was decided to perform FFR. The guiding catheter was removed and exchanged for a 6[place] XB 3.5. A fractional flow reserve wire was normalized and then advanced distal to the proximal LAD stents. Adenosine 140 mcg/kg per minute was infused over three minutes. The fractional flow reserve was measured at 0.92. The guiding catheter, flow wire and pressure wire were removed. There were no apparent immediate complications. CONCLUSIONS 1. Moderate to severe two-vessel coronary artery disease. 2. Right dominant system. 3. Severely reduced left ventricular systolic function with estimated ejection fraction of 25%. 4. Moderate mitral regurgitation. 5. Status post angioplasty and stent of the proximal right coronary artery. 6. Status post fractional flow reserve measurement of the proximal LAD demonstrating the absence of hemodynamically significant disease in this region MD ABHIJIT Mujica/MARY GRACE /12:45 PM /12:55 PM ERVIN
[2016-04-05] MEDS ORDERED: ENALAPRIL MALEATE 5 MG TAB PO ONE (14:00)
[2016-04-05 14:14] LABS: PROTHROMBIN TIME - PATIENT 11.1 SEC (9.8-11.6)
[2016-04-05 14:16] LABS: APTT (PATIENT) 152.2 SEC (24.3-30.1)
[2016-04-05] MEDS ORDERED: PLAV75TA29 PO (16:30)
[2016-04-05] MEDS ORDERED: ASPI81TA11 PO (16:30)
[2016-04-05] MEDS ORDERED: METO25TA3 PO (16:30)
[2016-04-05] MEDS ORDERED: NITR0.4S SL (16:30)
[2016-04-05] MEDS ORDERED: ENAL5TAB PO (16:30)
--- NOTE | 2016-04-05 16:30 | HHI.DCPOC ---
Discharge Care Plan Diagnosis: (1) CAD (coronary artery disease) Your Health Problems Are: Difficulty with ADL Exercise Tolerance Goals to Promote Your Health * To prevent worsening of your condition and complications * To maintain your health at the optimal level Directions to Meet Your Goals Take your medications as prescribed Follow your dietary instruction Follow activity as directed Keep your appointments as scheduled Take your immunizations and boosters as scheduled If your symptoms worsen call your PCP, if no PCP go to Urgent Care Center or Emergency Room Smoking is Dangerous to Your Health. Avoid second hand smoke Call the 24-hour hour crisis hotline for domestic abuse at Zbigniew Dan MD Apr 05, 2016 16:30
[2016-04-05 16:49] LABS: HEMOGLOBIN A1a 0.6 %; HEMOGLOBIN A1b 1.7 %; HEMOGLOBIN Ao 85.3 %; HEMOGLOBIN LA1C 2.2 %
[2016-04-05] MEDS ORDERED: ATROPINE SULFATE 1 MG/10 ML SYRINGE ONE (18:53)
[2016-04-05] MEDS ORDERED: MORPHINE SULFATE 8 MG/ML INJ IV PUSH PRN (19:30)
[2016-04-05] MEDS: ENALAPRIL MALEATE 5 MG TAB PO SCH ×2 (20:29→20:35)
[2016-04-05] MEDS ORDERED: ATORVASTATIN 40 MG TAB PO SCH (21:00)
[2016-04-05] MEDS ORDERED: SODIUM CHLORIDE 0.9% FLUSH 5 ML FLUSH IVF SCH (21:00)
--- NOTE | 2016-04-05 22:44 | EKG ---
Date Performed: 04/05/2016 Time Performed: 07:55:49 PTAGE: 55 years EKG: SINUS BRADYCARDIA ANTEROSEPTAL ST changes PREVIOUS TRACING : 04/04/2016 18.48 DOCTOR: Eddy Butterfield Interpretating Date/Time 04/05/2016 22:42:57
--- NOTE | 2016-04-05 22:59 | EKG ---
Date Performed: 04/04/2016 Time Performed: 18:48:58 PTAGE: 55 years EKG: SINUS BRADYCARDIA LEFT VENTRICULAR HYPERTROPHY AND ST-T CHANGE ANTEROSEPTAL MYOCARDIAL INFA RCTION PREVIOUS TRACING : 03/25/2014 15.41 DOCTOR: Eddy Butterfield Interpretating Date/Time 04/05/2016 22:56:56
[2016-04-05] MEDS ORDERED: BACITRACIN OINT 0.9 GM PKT ONE (23:58)
[2016-04-06] VITALS (9 sets, daily range): BP systolic 123–141; BP diastolic 72–86; PULSE 59–68; RESP 18–20; TEMP 98–98.4; O2SAT 97–98
[2016-04-06 04:04] LABS: AUTOMATED NEUTROPHIL # 10.1 TH/MM3 (1.8-7.7); BASOPHIL # 0.1 TH/MM3 (0-0.2); BASOPHIL % 0.7 % (0.0-2.0); EOSINOPHIL # 0.1 TH/MM3 (0-0.4); EOSINOPHIL % 0.8 % (0.0-4.0); HEMO FLAGS DIFF FINAL; LYMPH % 13.9 % (9.0-44.0); LYMPHOCYTE # 1.9 TH/MM3 (1.0-4.8); MEAN CELL VOLUME 92.4 FL (80.0-100.0); MEAN CORPUSCULAR HEMOGLOBIN 30.7 PG (27.0-34.0); MEAN CORPUSCULAR HGB CONC 33.3 % (32.0-36.0); MONO % 10.3 % (0.0-8.0); NEUT % 74.3 % (16.0-70.0); PLATELET COUNT 247 TH/MM3 (150-450); RED BLOOD COUNT 4.22 MIL/MM3 (4.50-5.90); RED CELL DISTRIBUTION WIDTH 14.7 % (11.6-17.2); WHITE BLOOD COUNT 13.5 TH/MM3 (4.0-11.0)
[2016-04-06 04:30] LABS: BICARBONATE 25.4 MEQ/L (21.0-32.0); MAGNESIUM 2.2 MG/DL (1.5-2.5); POTASSIUM 4.1 MEQ/L (3.5-5.1)
[2016-04-06 04:32] LABS: HDL CHOLESTEROL 50.5 MG/DL (40.0-60.0)
--- NOTE | 2016-04-06 08:19 | PD.CARD.PN ---
Subjective Subjective Remarks Feels "good". Denies CP, dyspnea, dizziness, groin pain. Objective Medications Item Value Date Time Aspirin 325 mg 04/06/16 09 (Aspirin) DAILY/PO Clopidogrel 75 mg 04/06/1600 Bisulfate DAILY/PO (Plavix) Enalapril Maleate 5 mg 04/05/162099 (Vasotec) BID/PO Atorvastatin 40 mg 04/05/162099 Calcium HS/PO 04/05/162028 (Lipitor) Metoprolol 12.5 mg 04/05/1600 Tartrate Q12HR/PO (Lopressor) Vital Signs / I&O Vital Signs Date Time Temp Pulse Resp B/P Pulse Ox O2 Delivery O2 Flow Rate FiO2 04/06/16 05:00 62 04/06/16 04:00 62 04/06/16 03:20 98.0 59 20 139/79 98 04/06/16 03:00 60 04/06/16 02:00 60 04/06/16 01:00 62 04/06/16 00:00 98.0 68 20 123/72 98 04/06/16 00:00 62 04/05/16 23:00 68 04/05/16 22:00 68 04/05/16 21:00 78 04/05/16 20:00 76 04/05/16 19:01 98.0 55 20 105/58 98 04/05/16 19:00 70 04/05/16 18:53 94/56 04/05/16 17:26 62 146/95 04/05/16 09:00 56 15 142/74 95 Room Air I/O 04/05/16 04/05/16 04/05/16 04/06/16 04/06/16 04/06/16 07:00 15:00 23:00 07:00 15:00 23:00 Intake Total 240 ml Output Total 400 ml Balance -160 ml Intake Oral 240 ml Output Urine Total 400 ml # Voids 1 Physical Exam GENERAL: Well developed, well nourished. No acute distress. HEENT: Jugular venous pressure is normal. CHEST: Lungs clear to auscultation bilaterally. Unlabored respiratory effort. CARDIAC: Regular rate and rhythm without S3, S4, or murmur. ABDOMEN: Soft, nontender, no hepatosplenomegaly. Bowel sounds present. EXTREMITIES: No clubbing, cyanosis, or edema. Moderate ecchymosis right femoral arteriotomy site, minimal hematoma, minimal tenderness, no bruit. Laboratory Laboratory Tests Test 04/05/16 04/05/16 04/06/16 10:08 13:18 03:24 Total Creatine Kinase 94 U/L 48 U/L Troponin I 1.34 NG/ML 1.59 NG/ML Prothrombin Time 11.1 SEC Prothromb Time International 1.0 RATIO Ratio Activated Partial 152.2 SEC Thromboplast Time Hemoglobin A1c 5.3 % White Blood Count 13.5 TH/MM3 Red Blood Count 4.22 MIL/MM3 Hemoglobin 13.0 GM/DL Hematocrit 39.0 % Mean Corpuscular Volume 92.4 FL Mean Corpuscular Hemoglobin 30.7 PG Mean Corpuscular Hemoglobin 33.3 % Concent Red Cell Distribution Width 14.7 % Platelet Count 247 TH/MM3 Mean Platelet Volume 7.6 FL Neutrophils (%) (Auto) 74.3 % Lymphocytes (%) (Auto) 13.9 % Monocytes (%) (Auto) 10.3 % Eosinophils (%) (Auto) 0.8 % Basophils (%) (Auto) 0.7 % Neutrophils # (Auto) 10.1 TH/MM3 Lymphocytes # (Auto) 1.9 TH/MM3 Monocytes # (Auto) 1.4 TH/MM3 Eosinophils # (Auto) 0.1 TH/MM3 Basophils # (Auto) 0.1 TH/MM3 CBC Comment DIFF FINAL Differential Comment Sodium Level 142 MEQ/L Potassium Level 4.1 MEQ/L Chloride Level 109 MEQ/L Carbon Dioxide Level 25.4 MEQ/L Anion Gap 8 MEQ/L Blood Urea Nitrogen 16 MG/DL Creatinine 0.79 MG/DL Estimat Glomerular Filtration 101 ML/MIN Rate Random Glucose 122 MG/DL Calcium Level 8.2 MG/DL Magnesium Level 2.2 MG/DL Triglycerides Level 122 MG/DL Cholesterol Level 172 MG/DL LDL Cholesterol 97 MG/DL HDL Cholesterol 50.5 MG/DL Cholesterol/HDL Ratio 3.40 RATIO Assessment and Plan Problem List: (1) NSTEMI (non-ST elevated myocardial infarction) Assessment and Plan: Stable overnight, s/p NSTEMI, s/p PCI of RCA. No further angina. Groin initially with hemostasis problems, now stable, minimal hematoma. AM labs OK. REC OK to discharge later this afternoon on current medications, Plavix for 4 weeks, aspirin forever (2) Ischemic cardiomyopathy Assessment and Plan: EF approximately 25% by left ventriculogram. Compensated at present. Rec continue metoprolol, enalapril, increase dosing as tolerated. (3) Hyperlipidemia Assessment and Plan: Suboptimal LDL level on lipid profile. Rec continue statin, rec close f/u with a PCP for watermaster aggressive lipid lowering management. Code Status full code Discussed Condition With patient Problem Qualifiers (1) Hyperlipidemia: Qualified Code: E78.2 - Mixed hyperlipidemia Jaiden Aj MD Apr 06, 2016 08:19
--- NOTE | 2016-04-06 08:40 | HHI.PR ---
Subjective Remarks [facility]up [facility]. No further chest pain. Risk factor modification discussed with the patient. Tobacco cessation. Case discussed with cardiology and RN Objective Vitals Vital Signs Date Time Temp Pulse Resp B/P Pulse Ox O2 Delivery O2 Flow Rate FiO2 04/06/16 05:00 62 04/06/16 04:00 62 04/06/16 03:20 98.0 59 20 139/79 98 04/06/16 03:00 60 04/06/16 02:00 60 04/06/16 01:00 62 04/06/16 00:00 98.0 68 20 123/72 98 04/06/16 00:00 62 04/05/16 23:00 68 04/05/16 22:00 68 04/05/16 21:00 78 04/05/16 20:00 76 04/05/16 19:01 98.0 55 20 105/58 98 04/05/16 19:00 70 04/05/16 18:53 94/56 04/05/16 17:26 62 146/95 04/05/16 09:00 56 15 142/74 95 Room Air I/O 04/05/16 04/05/16 04/05/16 04/06/16 04/06/16 04/06/16 07:00 15:00 23:00 07:00 15:00 23:00 Intake Total 240 ml Output Total 400 ml Balance -160 ml Intake Oral 240 ml Output Urine Total 400 ml # Voids 1 Result Diagram: 04/06/16 0324 04/06/16 0324 Imaging Last Impressions Chest X-Ray 04/04/16 191 Signed Impressions: Service Date/Time: Monday, April 04, 2016 19:35 - CONCLUSION: No acute disease. Jeffrey Veloz MD Objective Remarks GENERAL: This is a well-nourished, well-developed patient, in no apparent distress. SKIN: No rashes, ecchymoses or lesions. Cool and dry. HEAD: Atraumatic. Normocephalic. EYES: Pupils equal round and reactive. ENT: Nose without bleeding, purulent drainage or septal hematoma. Airway patent. NECK: Trachea midline. No JVD CARDIOVASCULAR: Regular rate and rhythm without murmurs, gallops, or rubs. RESPIRATORY: Clear to auscultation. Breath sounds equal bilaterally. No wheezes , rales, or rhonchi. GASTROINTESTINAL: Abdomen soft, non-tender, nondistended. No guarding. MUSCULOSKELETAL: Extremities without clubbing, cyanosis, or edema. No joint tenderness, effusion, or edema noted. No calf tenderness. Bruising right inguinal NEUROLOGICAL: Awake and alert. Motor and sensory grossly within normal limits. Normal speech. Procedures [facility] A/P Problem List: (1) NSTEMI (non-ST elevated myocardial infarction) ICD Code: I21.4 Status: Acute (2) Seizures ICD Code: R56.9 Status: Chronic (3) Tobacco abuse ICD Code: Z72.0 Status: Chronic Assessment and Plan 55 y/o male with a history of CAD and seizures presented with: NSTEMI/ Unstable angina status post left heart catheterization with RCA stenting. Continue aspirin, Plavix, enalapril, metoprolol and Lipitor. Respiratory modification. Follow-up A1c and 0.3 and lipid profile LDL 97. Tobacco cessation Cardiomyopathy ejection fraction 25% secondary to above. Uptitrate 80s and beta aishwarya if tolerated. May need AICD per cardiology Leukocytosis likely reactive. Hematoma right inguinal post cath. No bruit. Monitor Seizures, Chronic -Cont home medications and seizure precautions Tobacco abuse, chronic -Tobacco cessation DVT prophylaxis: Heparin Discharge Planning Discharge patient to home Condition on discharge: Improved Regular Diet as tolerated Ad Arabella activity no driving and strenuous activities Rx written: Aspirin, Plavix, metoprolol, enalapril and Lipitor Follow-up with primary care physician in one week, cardiology in 1 week Zbigniew Dan MD Apr 06, 2016 08:40
[2016-04-06] MEDS ORDERED: LIPI40TA PO (08:41)
[2016-04-06] MEDS: SODIUM CHLORIDE 0.9% FLUSH 5 ML FLUSH FLUSH SCH (08:56)
[2016-04-06] MEDS: METOPROLOL TARTRATE 25 MG TAB PO SCH (08:56)
[2016-04-06] MEDS: carBAMazepine 200 MG TAB PO SCH ×2 (08:56→13:11)
[2016-04-06] MEDS: DOCUSATE SODIUM 100 MG CAP PO SCH (08:56)
[2016-04-06] MEDS ORDERED: CLOPIDOGREL 75 MG TAB PO SCH (09:00)
[2016-04-06] MEDS ORDERED: ENALAPRIL MALEATE 5 MG TAB PO SCH (09:00)
[2016-04-06] MEDS ORDERED: ASPIRIN 325 MG TAB PO SCH (09:00)
== END 2016-04-06 13:41 | disposition home or self-care (01) | DRG 249 ==
LOC: NEPE 16:47 → NEDA 20:27 → NEDH 04-05 03:02 → HCIS 04-05 11:03
PROVIDERS: ADMIT Internal Medicine; ATTEND Internal Medicine
PROC: 4A023N7 Measurement of Cardiac Sampling and Pressure, Left Heart, Percutaneous Approach (ICD-10-PCS; 2016-04-05)
PROC: B2111ZZ Fluoroscopy of Multiple Coronary Arteries using Low Osmolar Contrast (ICD-10-PCS; 2016-04-05)
PROC: B2151ZZ Fluoroscopy of Left Heart using Low Osmolar Contrast (ICD-10-PCS; 2016-04-05)
PROC: 4A033BC Measurement of Arterial Pressure, Coronary, Percutaneous Approach (ICD-10-PCS; 2016-04-05)
PROC: 02703DZ Dilation of Coronary Artery, One Artery with Intraluminal Device, Percutaneous Approach (ICD-10-PCS; principal; 2016-04-05 11:00)
DX: I21.4 Non-ST elevation (NSTEMI) myocardial infarction (principal); T82.855A Stenosis of coronary artery stent, initial encounter; I25.110 Atherosclerotic heart disease of native coronary artery with unstable angina pectoris; F32.9 Major depressive disorder, single episode, unspecified; F41.9 Anxiety disorder, unspecified; H91.91 Unspecified hearing loss, right ear; I25.2 Old myocardial infarction; F17.210 Nicotine dependence, cigarettes, uncomplicated; F17.290 Nicotine dependence, other tobacco product, uncomplicated; G40.909 Epilepsy, unspecified, not intractable, without status epilepticus; F12.90 Cannabis use, unspecified, uncomplicated; I34.0 Nonrheumatic mitral (valve) insufficiency; Y71.1 Therapeutic (nonsurgical) and rehabilitative cardiovascular devices associated with adverse incidents; Y92.9 Unspecified place or not applicable; Y83.8 Other surgical procedures as the cause of abnormal reaction of the patient, or of later complication, without mention of misadventure at the time of the procedure; I25.5 Ischemic cardiomyopathy; E78.2 Mixed hyperlipidemia; D72.829 Elevated white blood cell count, unspecified; Z87.820 Personal history of traumatic brain injury
CPT/HCPCS: 71010; 80048; 80053; 80061; 82550; 82552; 83036; 83690; 83735; 83880; 84484; 85002; 85025; 85027; 85347; 85610; 85730; 92928; 93005; 93458; 93571; C1725; C1769; C1876; C1887; C1893; J0153; J0461; J1644; J2250; J2270; J3246; Q9967

== ENCOUNTER 2016-04-19 13:26 | Emergency (ER) | payer OTHER ==
[~2016-04-19] VITALS: Ht 175.3 cm; Wt 90.0 kg
[~2016-04-19 13:26] MED LIST changes: +ASPI81TA11 PO; +ENAL5TAB PO; +LIPI40TA PO; +METO25TA3 PO; +NITR0.4S SL; +PLAV75TA29 PO
[2016-04-19 13:28] VITALS: BP 134/63; PULSE 72; RESP 20; TEMP 98.2; O2SAT 93
--- NOTE | 2016-04-19 14:00 | PD ---
HPI Chief Complaint: Pain: Acute or Chronic Time Seen by Provider: 14:00 Travel History International Travel<30 days: No Contact w/Intl Traveler<30days: No Traveled to known affect area: No History of Present Illness HPI 55-year-old male who underwent cardiac catheterization April 05 2016, presents to emergency department for evaluation of a lump in his right groin area. Patient states it has been increasing in size. It is causing pain in his groin. Denies any trauma. 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 States that he has been riding his bike which he was advised not to do. Denies any recent illnesses, fever, or chills. He has no chest pain or shortness of breath. He has no other symptoms to report. PFSH Past Medical History Arthritis: No Blood Disorders: No Anxiety: Yes Depression: Yes Heart Rhythm Problems: No Cancer: No Cardiac Catheterization: Yes Cardiovascular Problems: Yes (STENT 04/05/16) High Cholesterol: Yes Chemotherapy: No Chest Pain: Yes Congestive Heart Failure: No Coronary Artery Disease: Yes Diminished Hearing: Yes (right ear) Endocrine: No Gastrointestinal Disorders: No Genitourinary: No Hypertension: No Immune Disorder: No Musculoskeletal: No Neurologic: Yes Psychiatric: Yes (CONTROL ISSUES) Reproductive: No Respiratory: No Myocardial Infarction: Yes Radiation Therapy: No Seizures: Yes Past Surgical History AICD: No Arteriovenous Shunt: No Cardiac Surgery: Yes (ANGIOPLASTY) Coronary Stent: Yes (1996) Insulin Pump: No Joint Replacement: No Pacemaker: No Other Surgery: No Social History Alcohol Use: Yes (rarely) Tobacco Use: Yes (1 ppd) Substance Use: Yes (marajuiana) Allergies-Medications (Allergen,Severity, Reaction): Coded Allergies: No Known Allergies (Verified , 04/19/16) Reported Meds & Prescriptions Reported Meds & Active Scripts Active Lipitor (Atorvastatin Calcium) 40 Mg Tab 40 Mg PO HS Nitrostat SL (Nitroglycerin) 0.4 Mg Subl 0.4 Mg SL Q5M PRN Metoprolol Tartrate 25 Mg Tab 12.5 Mg PO Q12HR Enalapril (Enalapril Maleate) 5 Mg Tab 5 Mg PO BID Plavix (Clopidogrel Bisulfate) 75 Mg Tab 75 Mg PO DAILY Aspirin EC (Aspirin) 81 Mg Tabdr 162 Mg PO DAILY Reported Carbamazepine 200 Mg Tab 200 Mg PO TID Review of Systems Except as stated in HPI: all other systems reviewed are Neg Physical Exam Narrative GENERAL: Well-nourished, well-developed male patient, ambulatory and in no acute distress SKIN: Warm and dry. Resolving ecchymosis in the right groin. There is a large palpable area suspected hematoma. The area is tender to palpation. HEAD: Normocephalic. EYES: No scleral icterus. No injection or drainage. NECK: Supple, trachea midline. No JVD or lymphadenopathy. CARDIOVASCULAR: Regular rate and rhythm without murmurs, gallops, or rubs. RESPIRATORY: Breath sounds equal bilaterally. No accessory muscle use. GASTROINTESTINAL: Abdomen soft, non-tender, nondistended. MUSCULOSKELETAL: No cyanosis, or edema. Distal pulses are palpable. BACK: Nontender without obvious deformity. No CVA tenderness. Data Data Last Documented VS Vital Signs Date Time Temp Pulse Resp B/P Pulse Ox O2 Delivery O2 Flow Rate FiO2 04/19/16 15:20 80 18 04/19/16 13:28 98.2 134/63 93 Orders Complete Blood Count With Diff (04/19/16 14:09) Basic Metabolic Panel (Bmp) (04/19/16 14:09) Coag Profile (04/19/16 14:09) Us Leg Hematoma/Pseudoaneurysm (04/19/16 ) Labs Laboratory Tests Test 04/19/16 14:35 White Blood Count 13.0 TH/MM3 Red Blood Count 4.26 MIL/MM3 Hemoglobin 13.1 GM/DL Hematocrit 39.4 % Mean Corpuscular Volume 92.6 FL Mean Corpuscular Hemoglobin 30.9 PG Mean Corpuscular Hemoglobin 33.4 % Concent Red Cell Distribution Width 15.2 % Platelet Count 317 TH/MM3 Mean Platelet Volume 7.0 FL Neutrophils (%) (Auto) 75.5 % Lymphocytes (%) (Auto) 15.0 % Monocytes (%) (Auto) 5.9 % Eosinophils (%) (Auto) 2.5 % Basophils (%) (Auto) 1.1 % Neutrophils # (Auto) 9.8 TH/MM3 Lymphocytes # (Auto) 1.9 TH/MM3 Monocytes # (Auto) 0.8 TH/MM3 Eosinophils # (Auto) 0.3 TH/MM3 Basophils # (Auto) 0.1 TH/MM3 CBC Comment DIFF FINAL Differential Comment Prothrombin Time 10.2 SEC Prothromb Time International 0.9 RATIO Ratio Activated Partial 26.4 SEC Thromboplast Time Sodium Level 143 MEQ/L Potassium Level 4.6 MEQ/L Chloride Level 107 MEQ/L Carbon Dioxide Level 28.4 MEQ/L Anion Gap 8 MEQ/L Blood Urea Nitrogen 13 MG/DL Creatinine 1.04 MG/DL Estimat Glomerular Filtration 74 ML/MIN Rate Random Glucose 91 MG/DL Calcium Level 8.7 MG/DL MDM Medical Decision Making Medical Screen Exam Complete: Yes Emergency Medical Condition: Yes Medical Record Reviewed: Yes Differential Diagnosis Hematoma versus hemorrhage versus contusion versus lymphadenopathy versus hernia Narrative Course 55-year-old male presents to the nursing department for evaluation. Workup was initiated in triage. Once a medical bed becomes available, patient will be transferred and care assumed by Dr. edwards. Condition: Stable Charleen Mejia Apr 19, 2016 14:00
[2016-04-19 14:39] LABS: AUTOMATED NEUTROPHIL # 9.8 TH/MM3 (1.8-7.7); BASOPHIL # 0.1 TH/MM3 (0-0.2); BASOPHIL % 1.1 % (0.0-2.0); EOSINOPHIL # 0.3 TH/MM3 (0-0.4); EOSINOPHIL % 2.5 % (0.0-4.0); HEMATOCRIT 39.4 % (39.0-51.0); HEMO FLAGS DIFF FINAL; LYMPHOCYTE # 1.9 TH/MM3 (1.0-4.8); MEAN CELL VOLUME 92.6 FL (80.0-100.0); MEAN CORPUSCULAR HEMOGLOBIN 30.9 PG (27.0-34.0); MEAN CORPUSCULAR HGB CONC 33.4 % (32.0-36.0); MONO % 5.9 % (0.0-8.0); NEUT % 75.5 % (16.0-70.0); PLATELET COUNT 317 TH/MM3 (150-450); RED BLOOD COUNT 4.26 MIL/MM3 (4.50-5.90); RED CELL DISTRIBUTION WIDTH 15.2 % (11.6-17.2)
[2016-04-19 14:52] LABS: APTT (PATIENT) 26.4 SEC (24.3-30.1); INTERNATIONAL NORMALIZED RATIO 0.9 RATIO; PROTHROMBIN TIME - PATIENT 10.2 SEC (9.8-11.6)
[2016-04-19 15:10] LABS: BICARBONATE 28.4 MEQ/L (21.0-32.0); POTASSIUM 4.6 MEQ/L (3.5-5.1)
--- NOTE | 2016-04-19 15:42 | PD ---
Physical Exam Time Seen by Provider: 15:42 Narrative 55-year-old male with a history of CAD and seizure disorder presents to the emergency department for evaluation of tender right groin lump status post cardiac catheterization. The patient was seen by provider in triage were initiated workup, please see her documentation. The patient states that he had a cardiac catheterization 04/05/[address] Aj. States that he has had a tender painful lump in his right groin at the site of the catheterization since the procedure. States it has been worsening over the past 2 weeks. States that he has been riding his bicycle and walking around even though he was told not to do these activities. Denies any fever, chills, nausea, vomiting, chest pain, shortness of breath, numbness or tingling, weakness. States he has continued to take the 5 medications he was prescribed while in the hospital. I reviewed the EMR and it looks like he is on Plavix and aspirin. No other complaints. GENERAL: Well-nourished and well-developed pleasant male patient in no acute distress who is nontoxic appearing. SKIN: Warm and dry. There is a tender painful lump to the right groin. There is ecchymosis to the right thigh, appears to have traveled down leg from groin. HEAD: Normocephalic and atraumatic. EYES: No injection, drainage, or hyphema noted. PERRLA. EOMI. ENT: No nasal drainage noted. Oropharynx is clear. NECK: Supple and the trachea is midline. CARDIOVASCULAR: Regular rate and rhythm. RESPIRATORY: Breath sounds are equal bilaterally with no accessory muscle use, wheezing, rhonchi, or crackles. GASTROINTESTINAL: Abdomen is soft, non-tender, and nondistended. MUSCULOSKELETAL: No obvious deformities, swelling, cyanosis, or ecchymosis is present throughout the upper and lower extremities. Patient has full range of motion without any signs of neurovascular compromise. NEUROLOGICAL: Awake, alert, and oriented. Normal speech and gait. Cranial nerves are grossly intact. Data Data Last Documented VS Vital Signs Date Time Temp Pulse Resp B/P Pulse Ox O2 Delivery O2 Flow Rate FiO2 04/19/16 15:20 80 18 04/19/16 13:28 98.2 134/63 93 Orders Complete Blood Count With Diff (04/19/16 14:09) Basic Metabolic Panel (Bmp) (04/19/16 14:09) Coag Profile (04/19/16 14:09) Us Leg Hematoma/Pseudoaneurysm (04/19/16 ) Labs Laboratory Tests Test 04/19/16 14:35 White Blood Count 13.0 TH/MM3 Red Blood Count 4.26 MIL/MM3 Hemoglobin 13.1 GM/DL Hematocrit 39.4 % Mean Corpuscular Volume 92.6 FL Mean Corpuscular Hemoglobin 30.9 PG Mean Corpuscular Hemoglobin 33.4 % Concent Red Cell Distribution Width 15.2 % Platelet Count 317 TH/MM3 Mean Platelet Volume 7.0 FL Neutrophils (%) (Auto) 75.5 % Lymphocytes (%) (Auto) 15.0 % Monocytes (%) (Auto) 5.9 % Eosinophils (%) (Auto) 2.5 % Basophils (%) (Auto) 1.1 % Neutrophils # (Auto) 9.8 TH/MM3 Lymphocytes # (Auto) 1.9 TH/MM3 Monocytes # (Auto) 0.8 TH/MM3 Eosinophils # (Auto) 0.3 TH/MM3 Basophils # (Auto) 0.1 TH/MM3 CBC Comment DIFF FINAL Differential Comment Prothrombin Time 10.2 SEC Prothromb Time International 0.9 RATIO Ratio Activated Partial 26.4 SEC Thromboplast Time Sodium Level 143 MEQ/L Potassium Level 4.6 MEQ/L Chloride Level 107 MEQ/L Carbon Dioxide Level 28.4 MEQ/L Anion Gap 8 MEQ/L Blood Urea Nitrogen 13 MG/DL Creatinine 1.04 MG/DL Estimat Glomerular Filtration 74 ML/MIN Rate Random Glucose 91 MG/DL Calcium Level 8.7 MG/DL [facility] Supervised Visit with JANE: No Differential Diagnosis Hematoma versus pseudoaneurysm versus abscess Narrative Course 55-year-old male presents to the emergency department for evaluation of swelling to right groin 2 weeks status post cardiac catheterization. Patient is afebrile, vital signs are stable. Patient was seen by provider in triage were initiated workup. CBC shows a slightly elevated white blood cell count of 13.0, otherwise unremarkable. BMP is unremarkable. Coags are unremarkable. Ultrasound shows a 6 cm x 5 cm hematoma to the right groin, no evidence of pseudoaneurysm. I spoke with the vascular surgeon regional driver who came down to evaluate the patient and recommends conservative management with outpatient follow-up. Discussed this with the patient. Patient verbalizes understanding and agreement with treatment plan. Patient is stable for discharge. I discussed the case with my attending physician Dr. Pruett who is aware of the patients history, physical examination findings, and treatment plan. Physician Communication Physician Communication I spoke with Dr. Freire vascular surgeon who came to evaluate the patient in the ED and recommends conservative management at this time. Diagnosis Primary Impression: Hematoma of groin Qualified Code: S30.1XXA - Hematoma of groin, initial encounter Referrals: Primary Care Physician Patient Instructions: General Instructions, Hematoma (ED) Additional Instruction: Apply warm compresses. Follow-up with your Primary Care Physician, director career Dr. Aj or Dr. Freire. Return to the ED for any acute worsening of symptoms. Med/Other Pt SpecificInfo: No Change to Meds Disposition: 01 DISCHARGE HOME Condition: Stable Angelic Chandler Apr 19, 2016 15:42
--- NOTE | 2016-04-19 17:19 | RADRPT ---
EXAM DATE/TIME: 04/19/2016 15:56 [facility] COMPARISON: No previous studies available for comparison. INDICATIONS : Right leg hematoma. MEDICAL HISTORY : Myocardial infarction. Hypercholesterolemia. Seizures. Head trauma. CAD. Chest pain. Depression. An xiety. Substance use. SURGICAL HISTORY : Coronary artery stent. Angioplasty. Cardiac cath. Left knee surgery. ENCOUNTER: Initial ACUITY: 1 week PAIN SCORE: 2/10 LOCATION: Right leg. AREA EVALUATED: Right groin. FINDINGS: A large hematoma is present measuring 6 CM by 5 CM but no flow is identified. CONCLUSION: 1. 6 cm hematoma without pseudoaneurysm Chaparro Lim MD on April 19, 2016 at 17:16 Board Certified Radiologist. This report was verified electronically.
== END 2016-04-19 18:36 | disposition home or self-care (01) ==
LOC: NEPC 13:26
DX: S30.1XXA Contusion of abdominal wall, initial encounter (principal); E78.00 Pure hypercholesterolemia, unspecified; H91.91 Unspecified hearing loss, right ear; I25.2 Old myocardial infarction; F17.200 Nicotine dependence, unspecified, uncomplicated; Z98.890 Other specified postprocedural states; Z91.19 Patient's noncompliance with other medical treatment and regimen; Z86.59 Personal history of other mental and behavioral disorders; Z86.79 Personal history of other diseases of the circulatory system; Z86.69 Personal history of other diseases of the nervous system and sense organs; X58.XXXA Exposure to other specified factors, initial encounter
CPT/HCPCS: 80048; 85025; 85610; 85730; 93926

== ENCOUNTER 2016-06-21 10:38 | Emergency (ER) | payer MEDICAID, OTHER ==
[~2016-06-21] VITALS: Ht 175.3 cm; Wt 90.0 kg
[2016-06-21 10:43] VITALS: BP 130/74; PULSE 72; RESP 18; TEMP 98.2; O2SAT 99
--- NOTE | 2016-06-21 11:01 | PD ---
HPI Chief Complaint: Medication Refill Request Time Seen by Provider: 11:01 Travel History International Travel<30 days: No Contact w/Intl Traveler<30days: No Traveled to known affect area: No History of Present Illness HPI 35-year-old male presents to the emergency department requesting a refill on his Tegretol for epileptic seizures. According to records the patient is supposed be on Tegretol 200 mg 3 times daily. The patient says that he has been taking Tegretol 200 mg once daily for the last 4 months or so. He says he' s been making it lasts longer because he no longer has patient assistance and is waiting for his Medicaid to kick in. He was following up at the [facility]. He denies any recent seizures over the past 4 months since he has decreased his dosages. Says he thinks his last seizure was in December just before . His last Tegretol level was checked in February and was 4.6. He has no other medical complaints today. No known allergies. No other modifying factors or associated signs and symptoms. PFSH Past Medical History Arthritis: No Blood Disorders: No Anxiety: Yes Depression: Yes Heart Rhythm Problems: No Cancer: No Cardiac Catheterization: Yes Cardiovascular Problems: Yes (STENT 04/05/16) High Cholesterol: Yes Chemotherapy: No Chest Pain: Yes Congestive Heart Failure: No Coronary Artery Disease: Yes Diminished Hearing: Yes (right ear) Endocrine: No Gastrointestinal Disorders: No Genitourinary: No Hypertension: No Immune Disorder: No Musculoskeletal: No Neurologic: Yes Psychiatric: Yes (CONTROL ISSUES) Reproductive: No Respiratory: No Myocardial Infarction: Yes Radiation Therapy: No Seizures: Yes Past Surgical History AICD: No Arteriovenous Shunt: No Cardiac Surgery: Yes (ANGIOPLASTY) Coronary Stent: Yes (1996) Insulin Pump: No Joint Replacement: No Pacemaker: No Other Surgery: Yes Social History Alcohol Use: Yes (rarely) Tobacco Use: Yes (1 ppd) Substance Use: Yes (marajuiana) Allergies-Medications (Allergen,Severity, Reaction): Coded Allergies: No Known Allergies (Verified , 06/21/16) Reported Meds & Prescriptions Reported Meds & Active Scripts Active Tegretol (Carbamazepine) 200 Mg Tab 200 Mg PO ONCE Nitrostat SL (Nitroglycerin) 0.4 Mg Subl 0.4 Mg SL Q5M PRN Metoprolol Tartrate 25 Mg Tab 12.5 Mg PO Q12HR Enalapril (Enalapril Maleate) 5 Mg Tab 5 Mg PO BID Aspirin EC (Aspirin) 81 Mg Tabdr 162 Mg PO DAILY Reported Carbamazepine 200 Mg Tab 200 Mg PO DAILY Review of Systems Except as stated in HPI: all other systems reviewed are Neg Physical Exam Narrative GENERAL: Well-nourished, well-developed male patient, in no acute distress SKIN: Warm and dry. HEAD: Atraumatic. Normocephalic. EYES: Pupils equal and round. No scleral icterus. No injection or drainage. ENT: Mucosa pink and moist. Airway patent. NECK: Trachea midline. CARDIOVASCULAR: Regular rate. RESPIRATORY: No accessory muscle use. GASTROINTESTINAL: Rounded. MUSCULOSKELETAL: No obvious deformities. No clubbing. No cyanosis. No edema. NEUROLOGICAL: Awake and alert. Oriented 3. No obvious cranial nerve deficits. Motor grossly within normal limits. Normal speech. PSYCHIATRIC: Appropriate mood and affect; insight and judgment normal. Data Data Last Documented VS Vital Signs Date Time Temp Pulse Resp B/P Pulse Ox O2 Delivery O2 Flow Rate FiO2 06/21/16 10:43 98.2 72 18 130/74 99 Orders MDM Medical Decision Making Medical Screen Exam Complete: Yes Emergency Medical Condition: Yes Medical Record Reviewed: Yes Differential Diagnosis Medication refill, medical clearance, seizure disorder Narrative Course 55-year-old male requesting refill on Tegretol for epileptic seizure disorder. He has been taking Tegretol 200 mg once daily. According to our records he is supposed be taking 200 mg 3 times daily. He says he's been stretching the medication out because he is no longer being seen at the community clinic because this patient assistance ended. His Tegretol level on February 25, 2016 was 4.6; the patient says that he was only taking Tegretol 200 mg once daily and this level was drawn. 1124: I called and spoke with JAYNE Slater at [facility] and she states the patient can come over today and get his initial paperwork filled out and she can schedule him for tomorrow for Tegretol level and follow-up. The patient was given information for the [facility] and he verbalized that he would go over to the clinic immediately and set up an appointment for tomorrow for Tegretol level and follow-up. I will provide the patient with a prescription for Tegretol 200 mg once daily. Instructed patient to follow up with the [facility]. Tegretol prescribed for home. Patient verbalizes understanding and agreement with treatment plan. Patient is medically cleared and stable for discharge. Discussed reasons to return to the emergency department. Instructed patient to follow up with primary care provider. Patient agrees with treatment plan. The patients vital signs are stable and the patient is stable for outpatient follow-up and treatment. Patient discharged home, stable and in no acute distress. Diagnosis Primary Impression: Encounter for medication refill Referrals: [facility] Primary Care Physician Patient Instructions: General Instructions, Medication Refill, ED Additional Instructions: Take medication as prescribed Follow up at the community clinic for the [facility] for Tegretol level and follow-up, today Follow-up with primary care provider Return to the emergency department immediately for worsening of symptoms Med/Other Pt SpecificInfo: Prescription(s) given Scripts Carbamazepine (Tegretol)200 Mg [id number] Mg PO ONCE #30 TAB Ref 0 Prov:Angelic Jimenez 06/21/16 Disposition: 01 DISCHARGE HOME Condition: Stable Angelic Jimenez June 21, 2016 11:01
[2016-06-21] MEDS ORDERED: TEGR200T PO (11:14)
== END 2016-06-21 11:41 | disposition home or self-care (01) ==
LOC: NEPK 10:38
DX: G40.909 Epilepsy, unspecified, not intractable, without status epilepticus (principal); E78.00 Pure hypercholesterolemia, unspecified; F17.200 Nicotine dependence, unspecified, uncomplicated; Z76.0 Encounter for issue of repeat prescription; Z86.59 Personal history of other mental and behavioral disorders; Z86.79 Personal history of other diseases of the circulatory system; Z86.69 Personal history of other diseases of the nervous system and sense organs
CPT/HCPCS: 99281

== ENCOUNTER 2017-01-17 13:56 | Emergency (ER) | payer MEDICAID ==
[~2017-01-17] VITALS: Ht 175.3 cm; Wt 88.6 kg
[~2017-01-17 13:56] MED LIST changes: -ASPI81TA11 PO; +ASPI81TA23 PO; -LIPI40TA PO; -PLAV75TA29 PO; +TEGR200T PO
[2017-01-17 13:57] VITALS: BP 149/101; PULSE 102; RESP 20; TEMP 98.7; O2SAT 97
[2017-01-17] MEDS ORDERED: CARB100C42 PO (16:21)
--- NOTE | 2017-01-17 16:23 | PD ---
HPI . Medication refill Chief Complaint: Medication Refill Request Time Seen by Provider: 16:12 Travel History International Travel<30 days: No Contact w/Intl Traveler<30days: No Traveled to known affect area: No History of Present Illness HPI 56 year old male patient presents to the emergency department for medication refill. Patient states he is followed by [facility] and has an appointment with them tomorrow morning. Patient took his last seizure medication this morning and does not have carbamazepine for tonight and tomorrow morning. Patient states he has seizures and he is concerned he will have a seizure if he does not take his medication. Patient is very hostile with nursing staff and irritated about having to be in our facility. Patient denies any fevers, chills , malaise. Patient states his last seizure was a couple months ago. Patient denies any physiological complaints at this time. PFSH Past Medical History Arthritis: No Blood Disorders: No Anxiety: Yes Depression: Yes Heart Rhythm Problems: No Cancer: No Cardiac Catheterization: Yes Cardiovascular Problems: Yes (STENTS) High Cholesterol: Yes Chemotherapy: No Chest Pain: Yes Congestive Heart Failure: No Coronary Artery Disease: Yes Diminished Hearing: Yes (right ear) Endocrine: No Gastrointestinal Disorders: No Genitourinary: No Hypertension: No Immune Disorder: No Musculoskeletal: No Neurologic: Yes Psychiatric: Yes (CONTROL ISSUES) Reproductive: No Respiratory: No Myocardial Infarction: Yes Radiation Therapy: No Seizures: Yes Past Surgical History AICD: No Arteriovenous Shunt: No Cardiac Surgery: Yes (ANGIOPLASTY) Coronary Stent: Yes (1996) Insulin Pump: No Joint Replacement: No Pacemaker: No Other Surgery: Yes Social History Alcohol Use: Yes (rarely) Tobacco Use: Yes (1 ppd) Sub[facility]: [facility] Allergies-Medications (Allergen,Severity, Reaction): Coded Allergies: No Known Allergies (Verified , 06/21/16) Reported Meds & Prescriptions Reported Meds & Active Scripts Active Carbamazepine ER 12 HR (Carbamazepine) 100 Mg Cap 100 Mg PO Q12HR Tegretol (Carbamazepine) 200 Mg Tab 200 Mg PO ONCE Nitrostat SL (Nitroglycerin) 0.4 Mg Subl 0.4 Mg SL Q5M PRN Metoprolol Tartrate 25 Mg Tab 12.5 Mg PO Q12HR Enalapril (Enalapril Maleate) 5 Mg Tab 5 Mg PO BID Aspirin EC (Aspirin) 81 Mg Tabdr 162 Mg PO DAILY Reported Carbamazepine 200 Mg Tab 200 Mg PO DAILY Review of Systems Except as stated in HPI: all other systems reviewed are Neg Physical Exam Narrative GENERAL: Well-nourished, well-developed 56-year-old male patient that is irritated and hostile towards nursing staff. Nontoxic appearing. SKIN: Focused skin assessment warm/dry. HEAD: Normocephalic. Atraumatic. EYES: No scleral icterus. No injection or drainage. NECK: Supple, trachea midline. No JVD or lymphadenopathy. CARDIOVASCULAR: Regular rate and rhythm without murmurs, gallops, or rubs. RESPIRATORY: Breath sounds equal bilaterally. No accessory muscle use. GASTROINTESTINAL: Abdomen soft, non-tender, nondistended. MUSCULOSKELETAL: No cyanosis, or edema. BACK: Nontender without obvious deformity. No CVA tenderness. Data Data Last Documented VS Vital Signs Date Time Temp Pulse Resp B/P (MAP) Pulse Ox O2 Delivery O2 Flow Rate FiO2 01/17/17 13:57 98.7 102 20 149/101 (117) 97 Room Air Orders Orders Ed Discharge Order (01/17/17 16:23) [facility] Medical Decision Making Medical Screen Exam Complete: Yes Emergency Medical Condition: Yes Differential Diagnosis Differential diagnoses include but not limited to seizure disorder, medication refill, medical exam Narrative Course 56-year-old male patient presents emergency department for medication refill. Patient states he has appointment in the morning for the [facility] to get his medication refilled. Patient concerned as he does not have his medication for this evening or tomorrow morning. Patient given 2 doses of his seizure medication to patch him through to this appointment in the morning. Patient discharged home. Diagnosis Primary Impression: Encounter for medication refill Referrals: Primary Care Physician Patient Instructions: General Instructions, Medication Refill, ED Additional Instructions: Please return to emergency department if your symptoms return or worsen. Keep your appointment at [facility] for tomorrow Take medications as prescribed. Med/Other Pt SpecificInfo: Prescription(s) given Scripts Carbamazepine ER 12 HR (Carbamazepine ER 12 HR) 100 Mg Cap 100 MG PO Q12HR, #2 CAP 0 Refills Prov: Gloria Montgomery 01/17/17 Disposition: 01 DISCHARGE HOME Condition: Stable Gloria Montgomery Jan 17, 2017 16:23
== END 2017-01-17 16:35 | disposition home or self-care (01) ==
LOC: NEPK 13:56
DX: Z76.0 Encounter for issue of repeat prescription (principal); R56.9 Unspecified convulsions; F41.9 Anxiety disorder, unspecified; E78.00 Pure hypercholesterolemia, unspecified; I25.10 Atherosclerotic heart disease of native coronary artery without angina pectoris
CPT/HCPCS: 99281

== ENCOUNTER 2017-02-07 17:07 | Inpatient (IN) | payer MEDICAID ==
[2017-02-07] VITALS (10 sets, daily range): BP systolic 140–198; BP diastolic 63–99; PULSE 74–130; RESP 17–26; TEMP 98.6–100.4; O2SAT 94–100
[~2017-02-07] VITALS: Ht 175.3 cm; Wt 88.2 kg
[~2017-02-07 17:07] MED LIST changes: +CARB100C42 PO
[2017-02-07] MEDS ORDERED: SODIUM CHLOR 0.9% 1000 ML INJ 1,000 ML IV ONE ×3 (17:21→19:30)
[2017-02-07] MEDS ORDERED: FOSPHENYTOIN INJ 1,000 MGPE in SODIUM CHLORIDE 0.9% INJ 50 ML IV ONE (17:30)
[2017-02-07] MEDS ORDERED: PROPOFOL 1000 MG/100 ML INJ 100 ML IV PRN (17:45)
--- NOTE | 2017-02-07 17:46 | RADRPT ---
EXAM DATE/TIME: 02/07/2017 17:32 [facility] COMPARISON: CT BRAIN W/O CONTRAST, December 13, 2013, 12:20. INDICATIONS : Stroke Alert-right sided weakness and on a vent. RADIATION DOSE: 35.40 CTDIvol (mGy) This report was called by > to Dr. Wiley at [phone] at 1740 MEDICAL HISTORY : Prior TBI. SURGICAL HISTORY : Non-responsive. ENCOUNTER: Initial ACUITY: 1 day PAIN SCALE: Non-responsive LOCATION: Bilateral cranial TECHNIQUE: Multiple contiguous axial images were obtained of the head. Using automated exposure control and adj ustment of the mA and/or kV according to patient size, radiation dose was kept as low as reasonably a chievable to obtain optimal diagnostic quality images. DICOM format image data is available electro nically for review and comparison. 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 Right hemisphere unremarkable. Ve ntricular size appropriate. There is no parenchymal hemorrhage. No extra-axial fluid collections ap preciated. Posterior fossa is unremarkable. CONCLUSION: 1. Negative for acute process. 2. Left anterior temporal region 3. Negative for parenchymal hemorrhage Miguel Brown MD FACR on February 07, 2017 at 17:41 Board Certified Radiologist. This report was verified electronically.
[2017-02-07 17:52] LABS: AUTOMATED NEUTROPHIL # 7.8 TH/MM3 (1.8-7.7); BASOPHIL # 0.2 TH/MM3 (0-0.2); EOSINOPHIL # 0.1 TH/MM3 (0-0.4); EOSINOPHIL % 0.9 % (0.0-4.0); HEMATOCRIT 49.9 % (39.0-51.0); LYMPH % 37.9 % (9.0-44.0); LYMPHOCYTE # 5.8 TH/MM3 (1.0-4.8); MEAN CELL VOLUME 97.1 FL (80.0-100.0); MEAN CORPUSCULAR HEMOGLOBIN 31.8 PG (27.0-34.0); MEAN CORPUSCULAR HGB CONC 32.8 % (32.0-36.0); MONO % 9.7 % (0.0-8.0); NEUT % 50.5 % (16.0-70.0); PLATELET COUNT 297 TH/MM3 (150-450); RED BLOOD COUNT 5.14 MIL/MM3 (4.50-5.90); WHITE BLOOD COUNT 15.4 TH/MM3 (4.0-11.0)
[2017-02-07 17:54] LABS: I-STAT SODIUM 143 MMOL/L (138-146)
[2017-02-07 17:54] LABS: HEMO FLAGS AUTO DIFF
[2017-02-07 17:56] LABS: I-STAT POTASSIUM 6.4 MMOL/L (3.5-4.9)
[2017-02-07] MEDS ORDERED: HYDROmorphone HCL PF 2 MG/ML VIAL IV PUSH ONE ×2 (18:00→18:15)
[2017-02-07 18:08] LABS: APTT (PATIENT) 20.9 SEC (24.3-30.1); PROTHROMBIN TIME - PATIENT 9.9 SEC (9.8-11.6)
--- NOTE | 2017-02-07 18:33 | PD ---
HPI Chief Complaint: Stroke Alert Time Seen by Provider: 17:20 Travel History International Travel<30 days: No Contact w/Intl Traveler<30days: No History of Present Illness HPI This is a 56-year-old male who presents to the emergency department with onset 30 minutes prior to arrival while he was at his friend's house of difficulty speaking, right-sided weakness and seizure. Patient had a normal blood sugar with EMS to continue disease. They placed an interosseous line. Friend didn't know much about the patient's medical history. PFSH Past Medical History Arthritis: No Blood Disorders: No Anxiety: Yes Depression: Yes Heart Rhythm Problems: No Cancer: No Cardiac Catheterization: Yes Cardiovascular Problems: Yes (STENTS) High Cholesterol: Yes Chemotherapy: No Chest Pain: Yes Congestive Heart Failure: No Coronary Artery Disease: Yes Diminished Hearing: Yes (right ear) Endocrine: No Gastrointestinal Disorders: No Genitourinary: No Hypertension: No Immune Disorder: No Musculoskeletal: No Neurologic: Yes Psychiatric: Yes (CONTROL ISSUES) Reproductive: No Respiratory: No Myocardial Infarction: Yes Radiation Therapy: No Seizures: Yes Past Surgical History AICD: No Arteriovenous Shunt: No Cardiac Surgery: Yes (ANGIOPLASTY) Coronary Stent: Yes (1996) Insulin Pump: No Joint Replacement: No Pacemaker: No Other Surgery: Yes Social History Alcohol Use: Yes (rarely) Tobacco Use: Yes (1 ppd) Substance Use: Yes (marajuiana) Allergies-Medications (Allergen,Severity, Reaction): Coded Allergies: No Known Allergies (Verified Allergy, Unknown, 02/07/17) Reported Meds & Prescriptions Reported Meds & Active Scripts Active Carbamazepine ER 12 HR (Carbamazepine) 100 Mg Cap 100 Mg PO Q12HR Tegretol (Carbamazepine) 200 Mg Tab 200 Mg PO ONCE Nitrostat SL (Nitroglycerin) 0.4 Mg Subl 0.4 Mg SL Q5M PRN Metoprolol Tartrate 25 Mg Tab 12.5 Mg PO Q12HR Enalapril (Enalapril Maleate) 5 Mg Tab 5 Mg PO BID Aspirin EC (Aspirin) 81 Mg Tabdr 162 Mg PO DAILY Reported Carbamazepine 200 Mg Tab 200 Mg PO DAILY Review of Systems ROS Limitations: Unresponsive Physical Exam Narrative GENERAL: Ill-appearing, actively seizing SKIN: Diaphoretic HEAD: Atraumatic. Normocephalic. EYES: Pupils 2 mm, equal and reactive. No injection or drainage. ENT: Moist mucous membranes NECK: Trachea midline. CARDIOVASCULAR: Tachycardic No murmur appreciated. RESPIRATORY: Clear to auscultation. Breath sounds equal bilaterally. GASTROINTESTINAL: Abdomen soft, non-tender, nondistended. MUSCULOSKELETAL: No obvious deformities. NEUROLOGICAL: Right upper extremity and right lower extremity hemiparesis, intermittent generalized convulsions, unresponsive Data Data Last Documented VS Vital Signs Date Time Temp Pulse Resp B/P (MAP) Pulse Ox O2 Delivery O2 Flow Rate FiO2 02/07/17 18:00 100 100 Orders Orders Diet Npo (02/07/17 Dinner) Activity Bed Rest (02/07/17 ) Electrocardiogram (02/07/17 ) I-Stat Creatinine (02/07/17 17:21) I-Stat Profile (02/07/17:21) Prothrombin Time / Inr (Pt) (02/07/17 17:21) Act Partial Throm Time (Ptt) (02/07/17 17:21) Complete Blood Count With Diff (02/07/17 17:) Fibrinogen (02/07/17 17:21) Creatine Kinase (Cpk) (02/07/17 17:21) Troponin I (02/07/17 17:21) Ua Includes Microscopic (02/07/17 17:21) Drug Screen, Random Urine (02/07/17 17:21) Type And Screen (02/07/17 17:21) Ct Brain W/O Iv Contrast(Rout) (02/07/17 ) Consult Neurology (02/07/17 ) Blood Glucose (02/07/17 17:21) Ecg Monitoring (02/07/17 17:21) Neuro Checks Q2HX12,Q4H (02/07/17 17:21) Nursing Bedside Swallow Assess .ONCE (02/07/17 17:21) Iv Access Insert/Monitor (02/07/17 17:21) NPO (02/07/17 17:21) Oximetry (02/07/17 17:21) Oxygen Administration (02/07/17 17:21) Sodium Chlor 0.9% 1000 Ml Inj (Ns 1000 M (02/07/17 17:21) Resp Oxygen Otf C Titrat 1-4 L (02/07/17 17:21) Cath For Specimen (02/07/17 17:21) Carbamazepine (Tegretol) (02/07/17 17:30) Fosphenytoin Inj (Cerebyx Inj) (02/07/17 17:30) (Hub Use Only)Inp Phy Cons/Ref (02/07/17 ) Propofol 1000 Mg/100 Ml Inj (Diprivan 10 (02/07/17 17:45) ^ Infusion (02/07/17 17:44) RASS (02/07/17 17:44) Neurological Rass Scale VANDANA.Q2H (02/07/17 17:44) Hydromorphone Pf Inj (Dilaudid Pf Inj) (02/07/17 18:00) Hydromorphone Pf Inj (Dilaudid Pf Inj) (02/07/17 18:15) Comprehensive Metabolic Panel (02/07/17 18:09) Labs Laboratory Tests Test 02/07/17 17:20 White Blood Count 15.4 TH/MM3 Red Blood Count 5.14 MIL/MM3 Hemoglobin 16.4 GM/DL Bedside Hemoglobin 17.0 G/DL Hematocrit 49.9 % Bedside Hematocrit 50.0 % Mean Corpuscular Volume 97.1 FL Mean Corpuscular Hemoglobin 31.8 PG Mean Corpuscular Hemoglobin Concent 32.8 % Red Cell Distribution Width 15.0 % Platelet Count 297 TH/MM3 Mean Platelet Volume 9.0 FL Neutrophils (%) (Auto) 50.5 % Lymphocytes (%) (Auto) 37.9 % Monocytes (%) (Auto) 9.7 % Eosinophils (%) (Auto) 0.9 % Basophils (%) (Auto) 1.0 % Neutrophils # (Auto) 7.8 TH/MM3 Lymphocytes # (Auto) 5.8 TH/MM3 Monocytes # (Auto) 1.5 TH/MM3 Eosinophils # (Auto) 0.1 TH/MM3 Basophils # (Auto) 0.2 TH/MM3 CBC Comment AUTO DIFF Prothrombin Time 9.9 SEC Prothromb Time International Ratio 1.0 RATIO Activated Partial Thromboplast Time 20.9 SEC Fibrinogen 273 mg/dL Bedside Sodium 143 MMOL/L Bedside Potassium 6.4 MMOL/L Bedside Chloride 111 MMOL/L Bedside Blood Urea Nitrogen 17 MG/DL Bedside Creatinine 1.0 MG/DL Bedside Glucose 103 MG/DL Carbamazepine (Tegretol) Level 4.5 MCG/ML [facility] Medical Screen Exam Complete: Yes Emergency Medical Condition: Yes Differential Diagnosis Hemorrhagic stroke, ischemic stroke, seizure, status epilepticus, Ray's paralysis, hypoglycemia, delirium tremens Narrative Course This is a 56-year-old male who presents to the emergency department having had onset of a seizure and right sided weakness 30 minutes prior to arrival. The emergency department he had evidence of right sided hemiparesis and intermittent intractable seizures. Ultimately decision was made to intubate the patient as he wasn't protecting his airway. Patient was taken to CT scan which was negative for intracranial hemorrhage but demonstrates large area of old encephalomalacia. I reviewed the patient's past medical records and he has been here in the past with similar presentation diagnosed with status epilepticus. He also has had a traumatic subdural hematoma in the past. Patient was given 2 mg of Ativan and started on propofol. He was loaded with fosphenytoin. Patient will be admitted to the intensive care unit for further management. It is unlikely that this is an ischemic stroke. 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 Critical Care Narrative Aggregate critical care time was 60 minutes. Time to perform other separately billable procedures was not included in the critical care time. My time did not include minutes spent treating any other patients simultaneously or on activities that did not directly contribute to the patient's treatment. The services I provided to this patient were to treat and/or prevent clinically significant deterioration that could result in: Disability, I provided critical care services requiring my management, as noted below: Chart data review, documentation time, medication orders and management, vital sign assessments/reviewing monitor data, ordering and reviewing lab tests, ordering and interpreting/reviewing x-rays and diagnostic studies, care of the patient and discussion of the patient with the admitting physicians. Stroke Alert NIHSS NIH Stroke Scale Result: 32 NIHSS Time Completed: 17:35 Thrombolytic Contraindications Contraindications Comment: Patient has history of intracranial hemorrhage, his presentation was preceded by a seizure and patient has history of recurrent status epilepticus making seizure more likely diagnosis than ischemic stroke. Procedures Procedure Narrative After the risks and benefits were discussed the following procedure was performed: INTUBATION: The patient was put in optimal position for the procedure. Rapid sequence intubation was initiated by me using 20 milligrams of etomidate IV and 100 milligrams of succinylcholine IV. The patient was intubated with a 8.0 cuffed endotracheal tube. Tube placement was confirmed by visualization of the tube and balloon passing through the cords, capnometry and subsequent chest x- ray. Breath sounds were equal and well aerated bilaterally postintubation. No breath sounds over stomach. Patient tolerated procedure well. Physician Communication Physician Communication Discussed with Dr. Wiley Diagnosis Diagnosis: Primary Impression: Status epilepticus Admitting Physician Requests: Admit Shakira Mcfadden MD Feb 07, 2017 18:33
[2017-02-07 18:44] LABS: PLATELET ESTIMATE SMEAR NORMAL (NORMAL); PLATELET MORPHOLOGY NORMAL (NORMAL); SCAN/DIFF AUTO DIFF CONFIRMED
[2017-02-07] MEDS ORDERED: CEFEPIME INJ 2,000 MG in SODIUM CHLORIDE 0.9% INJ 100 ML IV ONE (19:30)
[2017-02-07] MEDS ORDERED: VANCOMYCIN INJ 1,450 MG in SODIUM CHLORID 0.9% 500 ML INJ 500 ML IV ONE (19:30)
[2017-02-07] MEDS ORDERED: SODIUM CHLORIDE 0.9% FLUSH 10 ML FLUSH IV FLUSH PRN (19:45)
[2017-02-07] MEDS ORDERED: LACTULOSE SYRUP 20 GM/30 ML CUP PO PRN (19:45)
[2017-02-07] MEDS ORDERED: CHLORHEXIDINE GLUCONATE 2 % 1 PACK (2 CLOTHS) TOP PRN (19:45)
[2017-02-07] MEDS ORDERED: fentaNYL DRIP 250 ML IV PRN (19:45)
[2017-02-07] MEDS ORDERED: SENNOSIDES 8.6 MG TAB PO PRN (19:45)
[2017-02-07] MEDS ORDERED: RESP: ALBUTEROL 2.5 MG/3 ML NEB (PRN) INH (19:45)
[2017-02-07] MEDS ORDERED: MISCELLANEOUS NURSING INFORMATION XX SCH (19:45)
[2017-02-07] MEDS ORDERED: DEXTROSE 50% IN WATER 50 ML VIAL(D50) IV PUSH ONE (19:45)
[2017-02-07] MEDS ORDERED: CALCIUM GLUCONATE 10% 1 GM/10 ML VIAL SLOW IVP ONE (19:45)
[2017-02-07] MEDS ORDERED: SODIUM BICARBONATE 8.4% SOLN 50 MEQ/50 ML VIAL SLOW IVP ONE (19:45)
[2017-02-07] MEDS ORDERED: SODIUM POLYSTYRENE SULFONATE SUSP 15 GM/60 ML CUP PO ONE (19:45)
[2017-02-07] MEDS ORDERED: BISACODYL 10 MG SUPP RECTAL PRN (19:45)
[2017-02-07] MEDS ORDERED: ONDANSETRON HCL 4 MG/2 ML VIAL IV PUSH PRN (19:45)
[2017-02-07] MEDS ORDERED: MAGNESIUM HYDROXIDE SUSP 30 ML CUP PO PRN (19:45)
[2017-02-07] MEDS ORDERED: ACETAMINOPHEN 325 MG TAB PO PRN (19:45)
[2017-02-07] MEDS ORDERED: INSULIN HUMAN REGULAR 1,000 UNITS/10 ML VIAL IV PUSH ONE (19:45)
--- NOTE | 2017-02-07 19:46 | HHI.HP ---
HPI Service Critical Care Medicine Primary Care Physician Unknown Admission Diagnosis status epilepticus Diagnosis: (1) Hypertension Diagnosis: Principal (2) Hyperkalemia Diagnosis: Principal (3) Status epilepticus Diagnosis: Principal (4) Respiratory failure, acute Diagnosis: Principal (5) Leukocytosis Diagnosis: Principal (6) Marijuana use Diagnosis: Secondary Chief Complaint: Altered mental status/seizure 30 minutes Travel History International Travel<30 Days: No Contact w/Intl Traveler <30 Da: No Traveled to Known Affected Are: No History of Present Illness 56-year-old male. Date of admission 02/07/2017. Past medical history includes seizure disorder, traumatic brain injury, coronary disease, chronic systolic heart failure ejection fraction 25% and hypertension. History of EtOH and THC use Who presents to the emergency department having had onset of a seizure and right sided weakness 30 minutes prior to arrival. The emergency department he had evidence of right sided hemiparesis and intermittent intractable seizures. Patient was intubated receiving 20 mg etomidate and 100 mg succinylcholine. Patient was taken to CT scan brain revealed large area of old encephalomalacia. I reviewed the patient's past medical records and he has been here in the past with similar presentation diagnosed with status epilepticus. He also has had a traumatic left-sided subdural hematoma and subarachnoid hemorrhage in the past. Patient was given 2 mg of lorazepam and started on propofol. He was loaded with fosphenytoin 1 g. Patient will be admitted to the intensive care unit for further management. It is unlikely that this is an ischemic stroke. 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 Dr. Wiley was notified for stroke alert. MRI brain performed tonight. Review of Systems ROS Limitations: Intubated Past Family Social History Allergies: Coded Allergies: No Known Allergies (Verified Allergy, Unknown, 02/07/17) Past Medical History Traumatic brain injury History of left subdural/subarachnoid hemorrhage History of left zygomatic arch/orbital floor and maxillary antrum fracture Hypertension Coronary artery disease THC use EtOH Chronic systolic heart failure ejection fraction 25% Past Surgical History Urinary artery stent and 2016 Left tibial plateau fracture ORIF Reported Medications Carbamazepine ER 12 HR (Carbamazepine) 100 Mg Cap 100 Mg PO Q12HR Tegretol (Carbamazepine) 200 Mg Tab 200 Mg PO ONCE Nitrostat SL (Nitroglycerin) 0.4 Mg Subl 0.4 Mg SL Q5M PRN Metoprolol Tartrate 25 Mg Tab 12.5 Mg PO Q12HR Enalapril (Enalapril Maleate) 5 Mg Tab 5 Mg PO BID Aspirin EC (Aspirin) 81 Mg Tabdr 162 Mg PO DAILY Reported Carbamazepine 200 Mg Tab 200 Mg PO DAILY Active Ordered Medications Reviewed in EMR Family History No documentation of past medical history with parents. Social History Positive EtOH. Positive tobacco pack per day unknown duration. Positive THC. Physical Exam Vital Signs Vital Signs Date Time Temp Pulse Resp B/P (MAP) Pulse Ox O2 Delivery O2 Flow Rate FiO2 02/07/17 18:00 100 100 02/07/17 17:30 100 100 02/07/17 17:15 95 Auto-Vent 02/07/17 17:15 Auto-Vent 02/07/17 17:07 100.4 130 160/99 (119) Physical Exam GENERAL: 56 year old male, currently orotracheally intubated SKIN: Warm and dry. HEAD: Atraumatic. Normocephalic. EYES: Pupils equal and round about 1 mm bilaterally and minimally reactive. No scleral icterus. No injection or drainage. ENT: No nasal bleeding or discharge. Mucous membranes pink and moist. NECK: Trachea midline. No JVD. CARDIOVASCULAR: Regular rate and rhythm. S1, S2. No S4. RESPIRATORY: No accessory muscle use. Clear to auscultation. Breath sounds equal bilaterally. GASTROINTESTINAL: Abdomen soft, non-tender, nondistended. Hepatic and splenic margins not palpable. MUSCULOSKELETAL: Extremities without clubbing, cyanosis, or edema. No obvious deformities. NEUROLOGICAL: Sedated on the ventilator. Positive gag. Minimal corneal reflex. Withdraws to pain with upper and lower extremity. Subjective weakness to right upper extremity/does not withdrawal Laboratory Laboratory Tests Test 02/07/17 17:20 White Blood Count 15.4 Red Blood Count 5.14 Hemoglobin 16.4 Bedside Hemoglobin 17.0 Hematocrit 49.9 Bedside Hematocrit 50.0 Mean Corpuscular Volume 97.1 Mean Corpuscular Hemoglobin 31.8 Mean Corpuscular Hemoglobin Concent 32.8 Red Cell Distribution Width 15.0 Platelet Count 297 Mean Platelet Volume 9.0 Neutrophils (%) (Auto) 50.5 Lymphocytes (%) (Auto) 37.9 Monocytes (%) (Auto) 9.7 Eosinophils (%) (Auto) 0.9 Basophils (%) (Auto) 1.0 Neutrophils # (Auto) 7.8 Lymphocytes # (Auto) 5.8 Monocytes # (Auto) 1.5 Eosinophils # (Auto) 0.1 Basophils # (Auto) 0.2 CBC Comment AUTO DIFF Differential Comment AUTO DIFF CONFIRMED Platelet Estimate NORMAL Platelet Morphology Comment NORMAL Prothrombin Time 9.9 Prothromb Time International Ratio 1.0 Activated Partial Thromboplast Time 20.9 Fibrinogen 273 Bedside Sodium 143 Bedside Potassium 6.4 Bedside Chloride 111 Bedside Blood Urea Nitrogen 17 Bedside Creatinine 1.0 Bedside Glucose 103 Carbamazepine (Tegretol) Level 4.5 Result Diagram: 02/07/17 1720 Imaging Last Impressions Head CT 02/07/17 0000 Signed Impressions: Service Date/Time: Tuesday, February 07, 2017 17:32 - CONCLUSION: 1. Negative for acute process. 2. Left anterior temporal region 3. Negative for parenchymal hemorrhage Miguel Brown MD FACR Septic Shock Reassessment Septic shock perfusion: reassessment completed Caprini VTE Risk Assessment Caprini VTE Risk Assessment: Mod/High Risk (score >= 2) Caprini Risk Assessment Model Point Value = 1 Point Value = 2 Point Value = 3 Point Value = 5 Age 41-60 Minor surgery BMI > 25 kg/m2 Swollen legs Varicose veins or History of unexplained or recurrent spontaneous Oral contraceptives or hormone replacement Sepsis (< 1 month) Serious lung disease, including pneumonia (< 1 month) Abnormal pulmonary function Acute myocardial infarction Congestive heart failure (< 1 month) History of inflammatory bowel disease Medical patient at bed rest Age 61-74 Arthroscopic surgery Major open surgery (> 45 min) Laparoscopic surgery (> 45 min) Malignancy Confined to bed (> 72 hours) Immobilizing plaster cast Central venous access Age >= 75 History of VTE Family history of VTE Factor V Leiden Prothrombin [id number] Lupus anticoagulant Anticardiolipin antibodies Elevated serum homocysteine Heparin-induced thrombocytopenia Other congenital or acquired thrombophilia Stroke (< 1 month) Elective arthroplasty Hip, pelvis, or leg fracture Acute spinal cord injury (< 1 month) Prophylaxis Regimen Total Risk Factor Score Risk Level Prophylaxis Regimen 0-1 Low Early ambulation 2 Moderate Order ONE of the following: *Sequential Compression Device (SCD) *Heparin 5000 units SQ BID 3-4 Higher Order ONE of the following medications: *Heparin 5000 units SQ TID *Enoxaparin/Lovenox 40 mg SQ daily (WT < 150 kg, CrCl > 30 mL/min) *Enoxaparin/Lovenox 30 mg SQ daily (WT < 150 kg, CrCl > 10-29 mL/min) *Enoxaparin/Lovenox 30 mg SQ BID (WT < 150 kg, CrCl > 30 mL/min) AND/OR *Sequential Compression Device (SCD) 5 or more Highest Order ONE of the following medications: *Heparin 5000 units SQ TID (Preferred with Epidurals) *Enoxaparin/Lovenox 40 mg SQ daily (WT < 150 kg, CrCl > 30 mL/min) *Enoxaparin/Lovenox 30 mg SQ daily (WT < 150 kg, CrCl > 10-29 mL/min) *Enoxaparin/Lovenox 30 mg SQ BID (WT < 150 kg, CrCl > 30 mL/min) AND *Sequential Compression Device (SCD) Assessment and Plan Assessment and Plan Neuro/Psych: Status epilepticus History of Traumatic brain injury -left subdural hematoma, subarachnoid hemorrhage and left zygomatic arch fracture, orbital wall fracture and maxillary antrum fracture CT brain revealed old left anterior temporal CVA/and supple malacia Dr.v Wiley notified. MRI brain/MRA brain and neck ordered EEG ordered Removed with 1 g fosphenytoin. Currently 100 mg 3 times a day. Check Dilantin level in AM. Continue carbamazepine 200 mg daily. Level 4.5 today. CV: Coronary artery disease Chronic Systolic heart failure ejection fraction 25% Resp: Acute hypoxemic respiratory failure [facility] 16/520/40 Ventilator bundle Albuterol/ipratropium aerosols every 6 hours with albuterol aerosols every 2 hours. Dyspnea Spontaneous breathing trials daily GI: Patient is currently nothing by mouth NGT to LIWS Lansoprazole for GI prophylaxis Docusate sodium/senna 1 tablet twice a day for bowel regimen : Fuller catheter for accurate I's and O's in a critically ill patient Endo: Sliding-scale insulin with Accu-Cheks to maintain euglycemia Renal: Monitor urine output Accurate I's and O's Heme: Follow-up CBC. ID: Monitor for infection FEN: Hyperkalemia Replace electrolytes as clinically indicated Received D50/insulin/bicarbonate and calcium mechanically 1. Recheck in 3 hours MSK: PT evaluate and treat Access - Utilize peripheral IV. Central line if indicated Prophylaxis - GI - lansoprazole - DVT - SCD/heparin subcutaneous Critical Care: The total critical care time was 36 minutes. Time to perform other separately billable procedures was not included in the critical care time. Code Status Full code full code Discussed Condition With Dr. Mcfadden/ physician. Patient. Care plan discussed and all questions answered. Problem Qualifiers (1) Hypertension: Qualified Codes: I10 - Essential (primary) hypertension (2) Respiratory failure, acute: Qualified Codes: J96.00 - Acute respiratory failure, unspecified whether with hypoxia or hypercapnia (3) Leukocytosis: Qualified Codes: D72.828 - Other elevated white blood cell count Boy Tran MD Feb 07, 2017 19:46
[2017-02-07] MEDS ORDERED: GLUCAGON 1 MG/ML VIAL OTHER PRN (20:00)
[2017-02-07] MEDS ORDERED: HEPARIN SODIUM - SQ 10,000 UNITS/ML VIAL SQ SCH (20:00)
[2017-02-07] MEDS ORDERED: ACETAMINOPHEN 650 MG/20.3 ML UDC PO PRN (20:00)
[2017-02-07] MEDS ORDERED: CALCIUM GLUCONATE INJ 1 GM in SODIUM CHLORIDE 0.9% INJ 100 ML IV ONE (20:00)
[2017-02-07] MEDS ORDERED: DEXTROSE 50% IN WATER 50 ML VIAL(D50) IV PUSH PRN (20:00)
[2017-02-07] MEDS ORDERED: SODIUM CHLOR 0.9% 1000 ML INJ 1,000 ML IV SCH (20:00)
[2017-02-07] MEDS ORDERED: PILL SPLITTER OTHER PRN (20:00)
--- NOTE | 2017-02-07 20:10 | RADRPT ---
EXAM DATE/TIME: 02/07/2017 19:08 [facility] COMPARISON: CHEST SINGLE AP, April 04, 2016, 19:35. INDICATIONS : Post intubation. MEDICAL HISTORY : None. SURGICAL HISTORY : None. ENCOUNTER: Initial ACUITY: 1 day PAIN SCORE: Non-responsive. LOCATION: Bilateral chest FINDINGS: Endotracheal tube tip is well above the kristen. A gastric tube coils in the mid esophagus and descen ds superiorly with the tip in the T2 level. The lungs are symmetrically aerated. The heart is upper limits normal size for an AP film. Both hemidiaphragms are well delineated. Chronic deformity of t he right clavicle. CONCLUSION: 1. ET tube in good position. 2. The gastric tube is coiled upon itself in the midesophagus and the tip is at the thoracic inlet Schuyler Mccollum MD on February 07, 2017 at 20:05 Board Certified Radiologist. This report was verified electronically.
[2017-02-07 20:46] LABS: ANION GAP 7 MEQ/L (5-15); BICARBONATE 27.7 MEQ/L (21.0-32.0); BLOOD UREA NITROGEN 12 MG/DL (7-18); CHLORIDE 110 MEQ/L (98-107); GLOMERULAR FILTRATION RATE 90 ML/MIN (>89); POTASSIUM 3.6 MEQ/L (3.5-5.1); SODIUM (NA) 145 MEQ/L (136-145)
[2017-02-07 20:48] LABS: ALT (GPT) 19 U/L (12-78); AST (GOT) 19 U/L (15-37); BETA-HYDROXYBUTYRATE 0.25 MMOL/L (0.00-0.39)
[2017-02-07 20:50] LABS: BACTERIA, URINE MOD /hpf; BLOOD, URINE MOD (NEG); GLUCOSE,URINE NEG (NEG); HYALINE CAST, URINE 3 /lpf (RARE); KETONE, URINE 10 mg/dL (NEG); MUCUS URINE FEW /lpf (OCC); NITRITE,URINE NEG (NEG); SQUAMOUS EPITHELIAL CELL URINE 1 /hpf (0-5); URINE COLOR YELLOW (YELLW/STRAW)
[2017-02-07 20:50] LABS: ALKALINE PHOSPHATASE 72 U/L (45-117); TOTAL BILIRUBIN ADULT 0.2 MG/DL (0.2-1.0)
[2017-02-07 20:51] LABS: ALCOHOL LESS THAN 3 MG/DL (0-5)
[2017-02-07] MEDS ORDERED: CARBAMAZEPINE 100 MG PO SCH (21:00)
[2017-02-07] MEDS: METOPROLOL TARTRATE 25 MG TAB PO SCH (21:00)
[2017-02-07] MEDS: ENALAPRIL MALEATE 5 MG TAB PO SCH (21:00)
[2017-02-07] MEDS ORDERED: MULTIVITAMIN INJ 10 ML, THIAMINE INJ 100 MG, FOLIC ACID INJ 1 MG in SODIUM CHLORID 0.9%... IV ONE (21:00)
[2017-02-07] MEDS ORDERED: FAMOTIDINE 20 MG/2 ML VIAL IV PUSH SCH (21:00)
[2017-02-07] MEDS: PROPOFOL 1000 MG/100 ML INJ 100 ML IV PRN (22:17)
[2017-02-07 22:55] LABS: BLOOD GAS BASE EXCESS 3.3 mmol/L (-2-2); BLOOD GAS CARBOXYHEMOGLOBIN 2.2 % (0-4); BLOOD GAS HCO3 28 mmol/L (22-26); BLOOD GAS METHEMOGLOBIN 1.4 % (0-2); BLOOD GAS O2 HGB SATURATION 93 % (90-100); BLOOD GAS OXYGEN CONTENT 17.4 Vol % (12.0-20.0); BLOOD GAS PCO2 48 mmHg (38-42); BLOOD GAS PO2 92 mmHg (61-120); BLOOD GAS TOTAL HGB 13.2 G/DL (12.0-16.0); TEMP CORR TO 98.6
[2017-02-07 22:56] LABS: CRITICAL VALUE NO; OXYGEN DEVICE VENTILATOR
[2017-02-07 22:57] LABS: DRAW SITE RT BRACHIAL; FIO2 50 %; NUMBER OF ARTERIAL PUNCTURES 1; STAT NO
[2017-02-07] MEDS: SODIUM CHLORIDE 0.9% FLUSH 10 ML FLUSH IV FLUSH SCH (23:05)
[2017-02-07] MEDS: FOSPHENYTOIN SODIUM 100 MG PE/2 ML VIAL IV SCH (23:14)
[2017-02-07] MEDS: CHLORHEXIDINE 0.12% (ORAL KIT) 15 ML CUP MT SCH (23:15)
[2017-02-08] VITALS (21 sets, daily range): BP systolic 86–110; BP diastolic 52–67; PULSE 54–71; RESP 16–17; TEMP 98–98.5; O2SAT 96–100
[2017-02-08] MEDS ORDERED: IOHEXOL 350 MG/ML 10 ML VIAL (for RAD DIAG) IVCONTRAST ONE (00:41)
[2017-02-08] MEDS: DOCUSATE SODIUM 50 MG/SENNA 8.6 MG TAB PO SCH ×3 (01:03→22:52)
--- NOTE | 2017-02-08 01:04 | RADRPT ---
EXAM DATE/TIME: 02/08/2017 00:26 [facility] COMPARISON: No previous studies available for comparison. INDICATIONS : Right sided weakness. IV CONTRAST: 75 cc Omnipaque 350 (iohexol) IV ; Cumulative dose for multiple exams. RADIATION DOSE: 11.3 CTDIvol (mGy) ; Combined studies MEDICAL HISTORY : Seizures. TBI SURGICAL HISTORY : None. ENCOUNTER: Initial ACUITY: 1 day PAIN SCALE: Non-responsive LOCATION: cranial TECHNIQUE: Volumetric scanning was performed using a multi-row detector CT scanner. The data was post processed with a variety of visualization algorithms including full volume maximum intensity projection, multi -planar sliding thin slab reformation, curved planar reformation, and surface rendering techniques. Using automated exposure control and adjustment of the mA and/or kV according to patient size, radiat ion dose was kept as low as reasonably achievable to obtain optimal diagnostic quality images. DICO M format image data is available electronically for review and comparison. FINDINGS: There is excellent visualization of the major intracranial arteries out to the second-order branch ve ssels. There is no evidence for aneurysm, vessel truncation or stenosis, and no evidence for vascula r malformation. CONCLUSION: Negative CTA of the head. Jeffrey Veloz MD on February 08, 2017 at 1:00 Board Certified Radiologist. This report was verified electronically.
--- NOTE | 2017-02-08 01:08 | RADRPT ---
EXAM DATE/TIME: 02/08/2017 00:26 [facility] COMPARISON: No previous studies available for comparison. INDICATIONS : Right sided weakness. IV CONTRAST: 75 cc Omnipaque 350 (iohexol) IV ; Cumulative dose for multiple exams. RADIATION DOSE: 11.3 CTDIvol (mGy) ; Combined studies MEDICAL HISTORY : Seizures. Hypertension. tbi SURGICAL HISTORY : None. ENCOUNTER: Initial ACUITY: 1 day PAIN SCALE: Non-responsive LOCATION: Bilateral neck Elevated flow velocities and ICA/CCA ratios have been found to correlate with increased degrees of vessel stenosis, calculated as percentage of diameter relative to a normal segment of distal ICA/CCA. TECHNIQUE: Volumetric scanning was performed using a multirow detector CT scanner. The data was post processed with a variety of visualization algorithms including full-volume maximum intensity projection, multip lanar sliding thin-slab reformation, curved-planar reformation, and surface-rendering techniques. Us ing automated exposure control and adjustment of the mA and/or kV according to patient size, radiatio n dose was kept as low as reasonably achievable to obtain optimal diagnostic quality images. DICOM f ormat image data is available electronically for review and comparison. FINDINGS: AORTIC ARCH: There is a three-vessel origin of the great vessels from the aorta. No evidence of ostial narrowing. RIGHT CAROTID: The common carotid artery is intact. Mild plaque at the carotid bulb region and proximal internal car otid artery without a significant stenosis. The external carotid artery is intact. LEFT CAROTID: The common carotid artery is intact. Mild plaque at the carotid bulb region and proximal internal car otid artery without a significant stenosis. The external carotid artery is intact. VERTEBRALS: The vertebral arteries have a symmetric diameter. No stenotic lesions are seen. CONCLUSION: Mild plaque in the carotid bulb and proximal internal carotid arteries without significant stenosis. Jeffrey Veloz MD on February 08, 2017 at 1:05 Board Certified Radiologist. This report was verified electronically.
[2017-02-08] MEDS: CHLORHEXIDINE GLUCONATE 2 % 1 PACK (2 CLOTHS) TOP SCH (01:38)
[2017-02-08 02:29] LABS: AUTOMATED NEUTROPHIL # 10.2 TH/MM3 (1.8-7.7); BASOPHIL # 0.1 TH/MM3 (0-0.2); BASOPHIL % 0.7 % (0.0-2.0); EOSINOPHIL # 0.1 TH/MM3 (0-0.4); EOSINOPHIL % 1.1 % (0.0-4.0); HEMATOCRIT 39.3 % (39.0-51.0); HEMO FLAGS DIFF FINAL; LYMPH % 17.2 % (9.0-44.0); LYMPHOCYTE # 2.4 TH/MM3 (1.0-4.8); MEAN CELL VOLUME 94.7 FL (80.0-100.0); MEAN CORPUSCULAR HEMOGLOBIN 30.8 PG (27.0-34.0); MEAN CORPUSCULAR HGB CONC 32.5 % (32.0-36.0); MONO % 7.9 % (0.0-8.0); NEUT % 73.1 % (16.0-70.0); PLATELET COUNT 226 TH/MM3 (150-450); RED BLOOD COUNT 4.15 MIL/MM3 (4.50-5.90); WHITE BLOOD COUNT 13.9 TH/MM3 (4.0-11.0)
[2017-02-08] MEDS: PROPOFOL 1000 MG/100 ML INJ 100 ML IV PRN ×5 (02:37→22:53)
[2017-02-08 02:41] LABS: PROTHROMBIN TIME - PATIENT 10.4 SEC (9.8-11.6)
[2017-02-08 02:58] LABS: ALT (GPT) 18 U/L (12-78); ANION GAP 6 MEQ/L (5-15); AST (GOT) 23 U/L (15-37); BICARBONATE 24.3 MEQ/L (21.0-32.0); BLOOD UREA NITROGEN 11 MG/DL (7-18); CHLORIDE 115 MEQ/L (98-107); GLOMERULAR FILTRATION RATE 120 ML/MIN (>89); MAGNESIUM 1.9 MG/DL (1.5-2.5); POTASSIUM 3.6 MEQ/L (3.5-5.1); SODIUM (NA) 145 MEQ/L (136-145)
[2017-02-08 03:09] LABS: ACETAMINOPHEN 2.7 MCG/ML (10.0-30.0); ALKALINE PHOSPHATASE 62 U/L (45-117); TOTAL BILIRUBIN ADULT 0.2 MG/DL (0.2-1.0)
[2017-02-08] MEDS: RESP: ALBUTEROL 2.5 MG/IPRATROPIUM 0.5 MG NEB (SCH) INH ×4 (03:21→22:15)
[2017-02-08] MEDS ORDERED: HEPARIN-D5W 25,000 U/250 ML 250 ML IV PRN (03:30)
--- NOTE | 2017-02-08 03:49 | RADRPT ---
EXAM DATE/TIME: 02/08/2017 03:13 [facility] COMPARISON: CHEST SINGLE AP, February 07, 2017, 19:08. INDICATIONS : Shortness of breath, possible pulmonary disease. MEDICAL HISTORY : Seizures TBI SURGICAL HISTORY : None. ENCOUNTER: Subsequent ACUITY: 2 days PAIN SCORE: Non-responsive. LOCATION: Bilateral chest FINDINGS: ET tube and NG tube are well placed. The heart size is normal. The lungs are grossly clear. There is an old right mid clavicle fracture. CONCLUSION: ET tube and NG tube are well placed. The lungs appear clear. Jeffrey Veloz MD on February 08, 2017 at 3:47 Board Certified Radiologist. This report was verified electronically.
[2017-02-08] MEDS: FOSPHENYTOIN SODIUM 100 MG PE/2 ML VIAL IV SCH ×3 (05:53→22:54)
[2017-02-08] MEDS: INSULIN NovoLIN REGULAR SUPPLEMENTAL SCALE SQ SCH ×4 (06:00→18:12)
[2017-02-08] MEDS ORDERED: POTASSIUM PHOSPHATE MONOBASIC 500 MG TAB PO/TUBE PRN (07:45)
[2017-02-08] MEDS ORDERED: MAGNESIUM SULFATE INJ 2 GM in SODIUM CHLORIDE 0.9% INJ 96 ML IV PRN (07:45)
[2017-02-08] MEDS ORDERED: MAGNESIUM OXIDE 400 MG TAB PO PRN (07:45)
[2017-02-08] MEDS ORDERED: SODIUM PHOSPHATE INJ 30 MMOL in SODIUM CHLOR 0.9% 250 ML INJ 240 ML IV PRN (07:45)
[2017-02-08] MEDS ORDERED: POTASSIUM CHLOR 40 MEQ PREMIX 100 ML IV PRN ×2 (07:45)
[2017-02-08] MEDS ORDERED: POTASSIUM PHOSPHATE MONOBASIC 500 MG TAB PO PRN (07:45)
[2017-02-08] MEDS ORDERED: MAGNESIUM SULFATE INJ 4 GM in SODIUM CHLORIDE 0.9% INJ 92 ML IV PRN (07:45)
[2017-02-08] MEDS ORDERED: POTASSIUM PHOSPHATE INJ 30 MMOL in SODIUM CHLOR 0.9% 250 ML INJ 250 ML IV PRN (07:45)
[2017-02-08] MEDS ORDERED: POTASSIUM CHLOR 20 MEQ PREMIX 100 ML IV PRN ×2 (07:45)
[2017-02-08] MEDS ORDERED: POTASSIUM CHLORIDE 25 MEQ EFFERVESCENT TAB PO PRN (07:45)
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
[2017-02-08] MEDS: ARTIFICIAL TEARS OPTH SOLN 15 ML BTL EACH EYE SCH ×3 (09:00→18:00)
[2017-02-08] MEDS ORDERED: carBAMazepine 200 MG TAB PO SCH (09:00)
[2017-02-08] MEDS ORDERED: MULTIVITAMIN INJ 10 ML, THIAMINE INJ 100 MG, FOLIC ACID INJ 1 MG in SODIUM CHLORID 0.9%... IV SCH (09:00)
[2017-02-08 09:43] LABS: CKMB 6.6 NG/ML (0.5-3.6)
[2017-02-08] MEDS: MULTIVITAMIN TAB PO SCH (10:37)
[2017-02-08] MEDS: METOPROLOL TARTRATE 25 MG TAB PO SCH ×2 (10:37→21:00)
[2017-02-08] MEDS: ASPIRIN EC 81 MG TABEC PO SCH (10:37)
[2017-02-08] MEDS: LANSOPRAZOLE SOLUTAB 30 MG TAB NG SCH (10:37)
[2017-02-08] MEDS: ENALAPRIL MALEATE 5 MG TAB PO SCH ×2 (10:37→21:00)
[2017-02-08] MEDS: THIAMINE HCL 100 MG TAB PO SCH (10:37)
[2017-02-08] MEDS: SODIUM CHLORIDE 0.9% FLUSH 10 ML FLUSH IV FLUSH SCH ×2 (10:38→22:52)
[2017-02-08] MEDS: CHLORHEXIDINE 0.12% (ORAL KIT) 15 ML CUP MT SCH ×2 (10:38→22:52)
[2017-02-08 10:41] LABS: HDL CHOLESTEROL 53.4 MG/DL (40.0-60.0)
[2017-02-08] MEDS: cefTRIAXone INJ 1,000 MG in SODIUM CHLORIDE 0.9% INJ 100 ML IV SCH (10:41)
[2017-02-08] MEDS: carBAMazepine 200 MG TAB PO SCH ×2 (10:42→22:53)
[2017-02-08 14:02] LABS: APTT (PATIENT) 40.1 SEC (24.3-30.1)
--- NOTE | 2017-02-08 14:28 | EKG ---
Date Performed: 02/07/2017 Time Performed: 18:00:40 PTAGE: 56 years EKG: SINUS TACHYCARDIA POSSIBLE LEFT ATRIAL ENLARGEMENT POSSIBLE RIGHT VENTRICULAR CONDUCTION DE LAY ANTEROSEPTAL MYOCARDIAL INFARCTION of indeterminate age Compared to PREVIOUS TRACING anterior T-wave changes are improved PREVIOUS TRACIN04/05/2016 07.55 DOCTOR: Chaparro Rodriguez Interpretating Date/Time 02/09/2017 07:22:27
--- NOTE | 2017-02-08 14:28 | EKG ---
Date Performed: 02/07/2017 Time Performed: 18:08:13 PTAGE: 56 years EKG: SINUS TACHYCARDIA POSSIBLE RIGHT VENTRICULAR CONDUCTION DELAY ANTEROSEPTAL MYOCARDIAL INFAR CTION, age indeterminate Compared to prior tracing no significant change PREVIOUS TRACING : 02/07/2017 18.00 DOCTOR: Chaparro Rodriguez Interpretating Date/Time 02/08/2017 14:27:15
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
[2017-02-08 15:06] LABS: APTT (PATIENT) 42.9 SEC (24.3-30.1)
--- NOTE | 2017-02-08 16:43 | ECHRPT ---
Indication: Transient cerebral ischemic attack, unspecified CONCLUSIONS The left ventricular systolic function is severely reduced with an estimated ejection fraction in th e range of 20-25%, Global hypokinesis, worse at the apex..Mild concentric left ventricular hypertrophy. Moderately dilated left ventricle. Trace mitral valve regurgitation. Very technically difficult study with most views off-axis. BP: 106 / 64 HR: 65 Rhythm: MEASUREMENTS (Male / Female) Normal Values Technical Quality:Poor 2D ECHO LV Diastolic Diameter PLAX 6.7 cm 4.2 - 5.9 / 3.9 - 5.3 cm LV Systolic Diameter PLAX 6.1 cm IVS Diastolic Thickness 1.3 cm 0.6 - 1.0 / 0.6 - 0.9 cm LVPW Diastolic Thickness 1.8 cm 0.6 - 1.0 / 0.6 - 0.9 cm LV Relative Wall Thickness 0.5 RV Internal Dim ED PLAX 1.8 cm M-MODE Aortic Root Diameter MM 3.7 cm LA Systolic Diameter MM 3.7 cm LA Ao Ratio MM 1.0 AV Cusp Separation MM 1.7 cm DOPPLER Mitral E Point Velocity 84.2 cm/s Mitral A Point Velocity 77.4 cm/s Mitral E to A Ratio 1.1 LV E' Septal Velocity 4.7 cm/s Mitral E to LV E' Septal Ratio 18.0 FINDINGS LEFT VENTRICLE The left ventricular systolic function is severely reduced with an estimated ejection fraction in th e range of 20-25%. Mild concentric left ventricular hypertrophy. Moderately dilated left ventricle. RIGHT VENTRICLE The right ventricular size is normal. The right ventricular systoilc function is normal. LEFT ATRIUM The left atrial size is normal. RIGHT ATRIUM The right atrial size is normal. ATRIAL SEPTUM Normal atrial septal thickness without atrial level shunting by limited color doppler interrogation. AORTA The aortic root and proximal ascending aorta are not well visualized. MITRAL VALVE Trace mitral valve regurgitation. AORTIC VALVE The aortic valve is not well visualized. No aortic valve regurgitation. TRICUSPID VALVE The tricuspid valve is not well visualized. No tricuspid regurgitation. PULMONARY VALVE The pulmonary valve is not well visualized. No pulmonary valve regurgitation. VESSELS The inferior vena cava is dilated. There is less than 50% respiratory change in dimension of the inferior vena cava (abnormal). PERICARDIUM No pericardial effusion. Frank Archibald MD (Electronically Signed) Final Date:08 February 2017 16:42
[2017-02-08] MEDS: HEPARIN SODIUM - SQ 10,000 UNITS/ML VIAL SQ SCH (22:54)
[2017-02-09] VITALS (19 sets, daily range): BP systolic 111–149; BP diastolic 67–85; PULSE 58–70; RESP 16–19; O2SAT 94–100
[2017-02-09] MEDS: PROPOFOL 1000 MG/100 ML INJ 100 ML IV PRN ×3 (01:16→11:36)
[2017-02-09] MEDS: RESP: ALBUTEROL 2.5 MG/IPRATROPIUM 0.5 MG NEB (SCH) INH ×4 (03:18→22:00)
[2017-02-09] MEDS: CHLORHEXIDINE GLUCONATE 2 % 1 PACK (2 CLOTHS) TOP SCH (03:24)
[2017-02-09] MEDS: INSULIN NovoLIN REGULAR SUPPLEMENTAL SCALE SQ SCH ×4 (06:00→18:00)
[2017-02-09] MEDS: FOSPHENYTOIN SODIUM 100 MG PE/2 ML VIAL IV SCH ×3 (06:19→22:14)
[2017-02-09 06:56] LABS: AUTOMATED NEUTROPHIL # 6.1 TH/MM3 (1.8-7.7); BASOPHIL # 0.1 TH/MM3 (0-0.2); BASOPHIL % 1.1 % (0.0-2.0); EOSINOPHIL # 0.3 TH/MM3 (0-0.4); EOSINOPHIL % 2.9 % (0.0-4.0); HEMO FLAGS DIFF FINAL; LYMPH % 20.5 % (9.0-44.0); LYMPHOCYTE # 1.9 TH/MM3 (1.0-4.8); MEAN CELL VOLUME 94.1 FL (80.0-100.0); MEAN CORPUSCULAR HEMOGLOBIN 32.6 PG (27.0-34.0); MEAN CORPUSCULAR HGB CONC 34.6 % (32.0-36.0); MONO % 9.6 % (0.0-8.0); NEUT % 65.9 % (16.0-70.0); PLATELET COUNT 170 TH/MM3 (150-450); RED BLOOD COUNT 4.25 MIL/MM3 (4.50-5.90); RED CELL DISTRIBUTION WIDTH 14.6 % (11.6-17.2); WHITE BLOOD COUNT 9.3 TH/MM3 (4.0-11.0)
[2017-02-09 07:23] LABS: MAGNESIUM 2.1 MG/DL (1.5-2.5); POTASSIUM 4.3 MEQ/L (3.5-5.1)
[2017-02-09] MEDS: CHLORHEXIDINE 0.12% (ORAL KIT) 15 ML CUP MT SCH ×2 (08:00→20:00)
--- NOTE | 2017-02-09 08:16 | HHI.PR ---
Objective Vital Signs Date Time Temp Pulse Resp B/P (MAP) Pulse Ox O2 Delivery O2 Flow Rate FiO2 02/09/17 06:00 59 02/09/17 06:00 62 02/09/17 04:00 35 02/09/17 04:00 59 02/09/17 04:00 97.9 59 16 126/72 (90) 97 02/09/17 03:59 97 35 02/09/17 02:00 58 02/09/17 01:40 97 35 02/09/17 00:00 97.9 59 16 111/67 (82) 97 02/09/17 00:00 35 02/09/17 00:00 59 02/08/17 23:00 56 02/08/17 22:30 54 02/08/17 22:16 97 35 02/08/17 22:00 55 02/08/17 20:00 35 02/08/17 20:00 98.4 58 16 110/67 (81) 96 02/08/17 20:00 58 02/08/17 18:00 57 02/08/17 17:06 98 35 02/08/17 16:00 35 02/08/17 16:00 58 02/08/17 16:00 98.5 58 16 93/56 (68) 98 02/08/17 14:00 56 02/08/17 12:03 97 35 02/08/17 12:00 60 02/08/17 12:00 98.2 60 16 86/52 (63) 98 02/08/17 10:00 71 02/08/17 08:14 40 02/08/17 08:14 99 40 I/O 02/08/17 02/08/17 02/08/17 02/09/17 02/09/17 02/09/17 07:00 15:00 23:00 07:00 15:00 23:00 Intake Total 2478 ml 25 ml 647.1 ml 585 ml Output Total 550 ml 400 ml 350 ml Balance 1928 ml 25 ml 247.1 ml 235 ml Intake IV Total 2478 ml 25 ml 415.1 ml 200 ml Tube Feeding 232 ml 325 ml Other 60 ml Output Urine Total 500 ml 400 ml 350 ml Gastric Drainage Total 50 ml Result Diagram: 02/09/17 0602/09/17 06 Other Results fulll sedated still on vent Assessment and Plan Assessment and Plan imp free dil 12.2 cbz 5.5 no sz overnoc eeg [pend mri [pend ef only 20% ok by me to get off vent cont tegretola nd dil follow levels fu mri cva risk with low ef on asa trop inc Chaparro Junior MD Feb 09, 2017 08:16
[2017-02-09] MEDS: LANSOPRAZOLE SOLUTAB 30 MG TAB NG SCH (08:21)
[2017-02-09] MEDS: carBAMazepine 200 MG TAB PO SCH ×2 (08:21→22:12)
[2017-02-09] MEDS: ENALAPRIL MALEATE 5 MG TAB PO SCH ×2 (08:21→22:12)
[2017-02-09] MEDS: METOPROLOL TARTRATE 25 MG TAB PO SCH ×2 (08:22→22:12)
[2017-02-09] MEDS: ASPIRIN EC 81 MG TABEC PO SCH (08:22)
[2017-02-09] MEDS: THIAMINE HCL 100 MG TAB PO SCH (08:22)
[2017-02-09] MEDS: DOCUSATE SODIUM 50 MG/SENNA 8.6 MG TAB PO SCH ×2 (08:22→22:12)
[2017-02-09] MEDS: MULTIVITAMIN TAB PO SCH (08:22)
[2017-02-09] MEDS: HEPARIN SODIUM - SQ 10,000 UNITS/ML VIAL SQ SCH ×2 (08:23→22:15)
[2017-02-09] MEDS: cefTRIAXone INJ 1,000 MG in SODIUM CHLORIDE 0.9% INJ 100 ML IV SCH (08:23)
[2017-02-09] MEDS: ARTIFICIAL TEARS OPTH SOLN 15 ML BTL EACH EYE SCH ×3 (08:24→18:00)
[2017-02-09] MEDS: SODIUM CHLORIDE 0.9% FLUSH 10 ML FLUSH IV FLUSH SCH ×2 (09:00→22:17)
--- NOTE | 2017-02-09 10:04 | HHI.CCPN ---
Subjective Remarks/Hospital Course 56-year-old male. Date of admission 02/07/2017. Past medical history includes seizure disorder, traumatic brain injury, coronary disease, chronic systolic heart failure ejection fraction 25% and hypertension. History of EtOH and THC use Who presents to the emergency department having had onset of a seizure and right sided weakness 30 minutes prior to arrival. The emergency department he had evidence of right sided hemiparesis and intermittent intractable seizures. Patient was intubated receiving 20 mg etomidate and 100 mg succinylcholine. Patient was taken to CT scan brain revealed large area of old encephalomalacia. I reviewed the patient's past medical records and he has been here in the past with similar presentation diagnosed with status epilepticus. He also has had a traumatic left-sided subdural hematoma and subarachnoid hemorrhage in the past. Patient was given 2 mg of lorazepam and started on propofol. He was loaded with fosphenytoin 1 g. Patient will be admitted to the intensive care unit for further management. It is unlikely that this is an ischemic stroke. 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 Dr. Wiley was notified for stroke alert. 02/08 Patient is sedated with Diprivan and intubated. For MRI/MRA brain. Afebrile. 02/09 No events overnight. Sedated with Diprivan, fentanyl and intubated. MRI brain wasn't done last night for MRI brain today. Objective Vital Signs Date Time Temp Pulse Resp B/P (MAP) Pulse Ox O2 Delivery O2 Flow Rate FiO2 02/09/17 08:14 100 35 02/09/17 06:00 59 02/09/17 04:00 97.9 16 126/72 (90) 02/07/17 17:15 Auto-Vent Intake and Output 02/09/17 02/09/17 02/10/17 08:00 16:00 00:00 Intake Total 585 ml Output Total 350 ml Balance 235 ml Result Diagram: 02/09/17 0602/09/17 06 Other Results Laboratory Tests Test 02/08/17 13:00 02/08/17 14:37 02/09/17 06:01 Activated Partial Thromboplast Time 40.1 SEC 42.9 SEC White Blood Count 9.3 TH/MM3 Red Blood Count 4.25 MIL/MM3 Hemoglobin 13.8 GM/DL Hematocrit 40.0 % Mean Corpuscular Volume 94.1 FL Mean Corpuscular Hemoglobin 32.6 PG Mean Corpuscular Hemoglobin Concent 34.6 % Red Cell Distribution Width 14.6 % Platelet Count 170 TH/MM3 Mean Platelet Volume 8.9 FL Neutrophils (%) (Auto) 65.9 % Lymphocytes (%) (Auto) 20.5 % Monocytes (%) (Auto) 9.6 % Eosinophils (%) (Auto) 2.9 % Basophils (%) (Auto) 1.1 % Neutrophils # (Auto) 6.1 TH/MM3 Lymphocytes # (Auto) 1.9 TH/MM3 Monocytes # (Auto) 0.9 TH/MM3 Eosinophils # (Auto) 0.3 TH/MM3 Basophils # (Auto) 0.1 TH/MM3 CBC Comment DIFF FINAL Differential Comment Blood Urea Nitrogen 13 MG/DL Creatinine 0.63 MG/DL Random Glucose 97 MG/DL Calcium Level 8.1 MG/DL Phosphorus Level 3.7 MG/DL Magnesium Level 2.1 MG/DL Sodium Level 142 MEQ/L Potassium Level 4.3 MEQ/L Chloride Level 109 MEQ/L Carbon Dioxide Level 29.0 MEQ/L Anion Gap 4 MEQ/L Estimat Glomerular Filtration Rate 131 ML/MIN Phenytoin (Dilantin) Level 8.3 MCG/ML Carbamazepine (Tegretol) Level 5.3 MCG/ML Imaging Last Impressions Chest X-Ray 02/08/17 0000 Signed Impressions: Service Date/Time: January 03:13 - CONCLUSION: ET tube and NG tube are well placed. The lungs appear clear. Jeffrey Veloz MD Neck CTA 02/07/17 0000 Signed Impressions: Service Date/Time: January 00:26 - CONCLUSION: Mild plaque in the carotid bulb and proximal internal carotid arteries without significant stenosis. Jeffrey Veloz MD Head CTA 02/07/17 0000 Signed Impressions: Service Date/Time: January 00:26 - CONCLUSION: Negative CTA of the head. Jeffrey Veloz MD Head CT 02/07/17 0000 Signed Impressions: Service Date/Time: Tuesday, February 07, 2017 17:32 - CONCLUSION: 1. Negative for acute process. 2. Left anterior temporal region 3. Negative for parenchymal hemorrhage Miguel Brown MD FACR Objective Remarks GENERAL: 56 year old male, currently orotracheally intubated SKIN: Warm and dry. HEAD: Atraumatic. Normocephalic. EYES: Pupils equal and round about 1 mm bilaterally and minimally reactive. No scleral icterus. No injection or drainage. ENT: No nasal bleeding or discharge. Mucous membranes pink and moist. NECK: Trachea midline. No JVD. CARDIOVASCULAR: Regular rate and rhythm. S1, S2. No S4. RESPIRATORY: No accessory muscle use. Clear to auscultation. Breath sounds equal bilaterally. GASTROINTESTINAL: Abdomen soft, non-tender, nondistended. Hepatic and splenic margins not palpable. MUSCULOSKELETAL: Extremities without clubbing, cyanosis, or edema. No obvious deformities. NEUROLOGICAL: Sedated on the ventilator. Positive gag. Minimal corneal reflex. Withdraws to pain with upper and lower extremity. Subjective weakness to right upper extremity/does not withdrawal A/P Assessment and Plan Neuro/Psych: Status epilepticus History of Traumatic brain injury -left subdural hematoma, subarachnoid hemorrhage and left zygomatic arch fracture, orbital wall fracture and maxillary antrum fracture CT brain revealed old left anterior temporal CVA/and supple malacia Neuro is following- Dr. Barber. For MRI brain/MRA brain and neck Followup on EEG Given 1 g fosphenytoin. On Cerebyx 100 mg 3 times a day. Dilantin level :8.3 Continue carbamazepine 300mg Q12,. Level 5.3 CV: Elevated troponin Coronary artery disease Chronic Systolic heart failure ejection fraction 25% Monitor HR and BP keep MAP>65mmhg Monitor CK/trop n( trop trending down). cards- Dr. Frazier Continue with ASA, Lopressor 12.5mg Q12 Lactic acid: 1.3 Echo showed EF 20-25% Resp: Acute hypoxemic respiratory failure PRVC 16/520///40 Contineu with vent support keep sat >92% Ventilator bundle Albuterol/ipratropium aerosols every 6 hours with albuterol aerosols every 2 hours. Spontaneous breathing trials daily GI: On tube feeds- Glucerna 1.5 with goal rate 55ml/hr Lansoprazole for GI prophylaxis Docusate sodium/senna 1 tablet twice a day for bowel regimen : Monitor renal function. electrolytes replacement per protocol. Endo: SSI with Accu-Cheks to maintain euglycemia Heme: Monitor CBC. ID: UTI Continue Rocephin for UTI. Monitor for signs of infection( Fever, WBC) Follow up on BC 02/07- 02/22 bottles GPC.. likely contaminant will check BC x 2 sets today. MSK: PT evaluate and treat Access - Utilize peripheral IV. Prophylaxis - GI - lansoprazole - DVT - SCD/heparin SQ Level 3 Lalita Severino MD Feb 09, 2017 10:04
--- NOTE | 2017-02-09 10:24 | MB ---
cc: LAURA SANCHEZ DATE OF CONSULTATION 02/08/2017 HISTORY OF PRESENT ILLNESS Mr. Panchal is a 56-year-old white male with a history of seizure disorder due to brain trauma, coronary artery disease, chronic systolic congestive heart failure, ejection fraction 25% and hypertension. He has a history of alcohol and marijuana use. He presented with seizure and right-sided weakness. His CT showed a large area of old encephalomalacia. The troponin was slightly elevated. PAST MEDICAL HISTORY 1. History of trauma to the brain. 2. History of left subdural and right subarachnoid hemorrhage. 3. History of left facial fracture. 4. Hypertension. 5. Coronary artery disease. 6. Chronic systolic congestive heart failure, ejection fraction 25%. 7. Alcohol abuse. 8. Marijuana use. 9. History of coronary artery stent placement. 10.Left tibial plateau fracture. MEDICATIONS 1. Aspirin. 2. Enalapril. 3. Metoprolol. 4. Nitroglycerin. 5. Tegretol. 6. Carbamazepine. SOCIAL HISTORY The patient drinks alcohol. He is a smoker. He also smokes marijuana. FAMILY HISTORY Negative for heart disease. REVIEW OF SYSTEMS Otherwise negative. PHYSICAL EXAMINATION VITAL SIGNS: Blood pressure 86/52, pulse 60 and regular. HEENT: The patient is intubated and sedated. NECK: 2+ carotid upstrokes. LUNGS: Clear. HEART: Regular with no murmur or gallop. ABDOMEN: Soft. No bruits. EXTREMITIES: Without edema. 2+ distal pulses. NEUROLOGIC: Grossly nonfocal, although the patient is sedated. EKG EKG was reviewed and showed sinus tachycardia, left atrial enlargement, nonspecific ST-T changes and anteroseptal Q-waves. ECHOCARDIOGRAM Echocardiogram showed severe left ventricular systolic dysfunction with ejection fraction of 20-25%, global akinesis worse at the apex. LABORATORY Hemoglobin 12.8. Potassium 3.6. Creatinine 0.7. CK 393. CK-MB index 1.7. Troponin 0.42 and 0.34. DIAGNOSIS 1. Status epilepticus. 2. Mildly abnormal troponin. 3. Cardiomyopathy with severe left ventricular systolic dysfunction. 4. Coronary artery disease. 5. Acute hypoxemic respiratory failure. 6. Smoking. 7. Alcohol abuse. DISPOSITION Mr. Panchal will be monitored in the ICU. He will be treated for status epilepticus. His echocardiogram shows severe LV dysfunction which has been chronic. His troponin is slightly elevated but not trending in either direction. We will continue his current medical program. I recommend to continue therapy for congestive heart failure. I will follow him for cardiology during his hospitalization. MD ZACHERY Chisholm/BOBBI /6:07 PM /9:31 AM ERVIN
[2017-02-09] MEDS ORDERED: GADODIAMIDE PF 287 MG/ML 20 ML VIAL (for RAD MRI) IVCONTRAST ONE (10:59)
--- NOTE | 2017-02-09 11:43 | RADRPT ---
EXAM DATE/TIME: 02/09/2017 10:42 [facility] COMPARISON: CT BRAIN W/O CONTRAST, December 13, 2013, 12:20. CT BRAIN W/O CONTRAST, February 07, 2017, 17:32. INDICATIONS : Aphasia. Right sided weakness with seizures. CONTRAST: 19 cc Omniscan (gadodiamide) IV MEDICAL HISTORY : Seizures. Hypertension. SURGICAL HISTORY : Angioplasty. cardiac stents, ORIF Lt tibia ENCOUNTER: Subsequent ACUITY: 3 day PAIN SCORE: 0/10 LOCATION: cranial TECHNIQUE: Multiplanar, multisequence MRI of the brain was performed both prior to and following the administrat ion of paramagnetic contrast. FINDINGS: CEREBRUM: There is an area of encephalomalacia and some gliosis involving the left temporal lobe. This is long- term stable. A small focus of gliosis and encephalomalacia also seen involving the left frontal lobe. The ventricles are normal for age. No evidence of midline shift, mass lesion, hemorrhage or acute i nfarction. No extraaxial fluid collections are seen. The pituitary gland and suprasellar cistern ar e normal in configuration. WHITE MATTER: No significant signal abnormalities are seen in the white matter. POSTERIOR FOSSA: The cerebellum and brainstem are intact. The 4th ventricle is midline. The cerebellopontine angle is unremarkable. The cerebellar tonsils are normal in position. DIFFUSION IMAGING: No focal areas of restricted diffusion are seen. No evidence of acute infarction. EXTRACRANIAL: The visualized portions of the orbits and paranasal sinuses are unremarkable. POST-CONTRAST: No abnormal areas of parenchymal or dural enhancement. No evidence of blood-brain barrier breakdown. CONCLUSION: 1. 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 2. No acute intracranial abnormality. Schuyler Campos Jr., MD on February 09, 2017 at 11:35 Board Certified Radiologist. This report was verified electronically.
--- NOTE | 2017-02-09 13:16 | PD.CARD.PN ---
Subjective Subjective Remarks Intubated, sedated Objective Medications Current Medications Medications (Trade) Dose Ordered Sig/Casandra Route Start Time Stop Time Status Last Admin (Ecotrin Ec) 162 mg DAILY PO 02/08/17 09:00 02/09/17 08:22 (Vasotec) 5 mg BID PO 02/07/17 21:00 02/09/17 08:21 (Lopressor) 12.5 mg Q12HR PO 02/07/17 21:00 02/09/17 08:22 (Cerebyx Inj) 100 mgpe Q8HR IV 02/07/17 22:00 02/09/17 06:19 (NS Flush) 2 ml UNSCH PRN IV FLUSH 02/07/17 19:45 (NS Flush) 2 ml BID IV FLUSH 02/07/17 21:00 02/08/17 22:52 (Tears Naturale Opth Soln) 1 drop TID EACH EYE 02/08/17 09:00 (Zofran Inj) 4 mg Q6H PRN IV PUSH 02/07/17 19:45 (Duoneb Neb) 1 ampule Q6HR NEB INH 02/07/17 22:00 02/09/17 08:14 (Albuterol Neb) 2.5 mg Q2HR NEB PRN INH 02/07/17 19:45 Miscellaneous Information 1 Q361D XX 02/07/17 19:45 02/07/17 19:45 (Chlorhexidine 2% Cloth) 3 pack Taper DAILY@04 TOP 02/08/17 04:00 02/04/18 03:59 02/09/17 03:24 (Chlorhexidine 2% Cloth) 3 pack UNSCH PRN TOP 02/07/17 19:45 (Kell-Colace) 1 tab BID PO 02/07/17 21:00 02/09/17 08:22 (Milk Of Magnesia Liq) 30 ml Q12H PRN PO 02/07/17 19:45 (Senokot) 17.2 mg Q12H PRN PO 02/07/17 19:45 (Dulcolax Supp) 10 mg DAILY PRN RECTAL 02/07/17 19:45 (Lactulose Liq) 30 ml DAILY PRN PO 02/07/17 19:45 (Peridex 0.12% Liq) 15 ml BID@08,20 MT 02/07/17 20:00 02/09/17 08:00 Propofol 100 ml @ 2.85 mls/hr TITRATE PRN IV 02/07/17 19:45 02/09/17 11:36 Fentanyl Citrate 250 ml @ 5 mls/hr TITRATE PRN IV 02/07/17 19:45 02/08/17 10:36 (Pill Splitter) 1 ea UNSCH PRN OTHER 02/07/17 20:00 (Prevacid Odt) 30 mg DAILY NG 02/08/17 09:00 02/09/17 08:21 (Tylenol 650 Mg/ 20 ml Liq) 650 mg Q6H PRN PO 02/07/17 20:00 (D50w (Vial) Inj) 50 ml UNSCH PRN IV PUSH 02/07/17 20:00 (Glucagon Inj) 1 mg UNSCH PRN OTHER 02/07/17 20:00 (NovoLIN R SUPPLEMENTAL SCALE) 1 Q6HR SQ 02/08/17 00:00 Potassium Chloride 100 ml @ 50 mls/hr Q2H PRN IV 02/08/17 07:45 Potassium Chloride 100 ml @ 50 mls/hr Q2H PRN IV 02/08/17 07:45 (K-Lyte Cl Eff) 50 meq UNSCH PRN PO 02/08/17 07:45 Potassium Chloride 100 ml @ 25 mls/hr UNSCH PRN IV 02/08/17 07:45 Potassium Chloride 100 ml @ 50 mls/hr Q2H PRN IV 02/08/17 07:45 Magnesium Sulfate 4 gm/Sodium Chloride 100 ml @ 50 mls/hr UNSCH PRN IV 02/08/17 07:45 (Mag-Ox) 800 mg UNSCH PRN PO 02/08/17 07:45 Magnesium Sulfate 2 gm/Sodium Chloride 100 ml @ 50 mls/hr UNSCH PRN IV 02/08/17 07:45 (K-Phos) 2,000 mg Q4H PRN PO 02/08/17 07:45 Sodium Phosphate 30 mmol/Sodium Chloride 250 ml @ 42 mls/hr UNSCH PRN IV 02/08/17 07:45 (K-Phos) 2,000 mg UNSCH PRN PO/TUBE 02/08/17 07:45 Potassium Phosphate 30 mmol/ Sodium Chloride 260 ml @ 42 mls/hr UNSCH PRN IV 02/08/17 07:45 (Vitamin B1) 100 mg DAILY PO 02/08/17 09:00 02/09/17 08:22 (Theragran) 1 tab DAILY PO 02/08/17 09:00 02/09/17 08:22 Ceftriaxone Sodium 1000 mg/ Sodium Chloride 100 ml @ 200 mls/hr Q24H IV 02/08/17 08:00 02/09/17 08:23 (TEGretol) 300 mg Q12HR PO 02/08/17 10:00 02/09/17 08:21 (Heparin Inj) 5,000 units Q12HR SQ 02/08/17 21:00 02/09/17 08:23 Vital Signs / I&O Vital Signs Date Time Temp Pulse Resp B/P (MAP) Pulse Ox O2 Delivery O2 Flow Rate FiO2 02/09/17 12:42 98 35 02/09/17 12:28 35 02/09/17 12:00 99.3 61 16 114/69 (84) 94 02/09/17 12:00 59 02/09/17 12:00 35 02/09/17 11:29 100 02/09/17 10:00 59 02/09/17 08:14 100 35 02/09/17 08:00 59 02/09/17 08:00 98.6 61 16 124/78 (93) 98 02/09/17 08:00 35 02/09/17 06:00 59 02/09/17 06:00 62 02/09/17 04:00 35 02/09/17 04:00 59 02/09/17 04:00 97.9 59 16 126/72 (90) 97 02/09/17 03:59 97 35 02/09/17 02:00 58 02/09/17 01:40 97 35 02/09/17 00:00 97.9 59 16 111/67 (82) 97 02/09/17 00:00 35 02/09/17 00:00 59 02/08/17 23:00 56 02/08/17 22:30 54 02/08/17 22:16 97 35 02/08/17 22:00 55 02/08/17 20:00 35 02/08/17 20:00 98.4 58 16 110/67 (81) 96 12/21/17 20:00 58 02/08/17 18:00 57 02/08/17 17:06 98 35 02/08/17 16:00 35 02/08/17 16:00 58 02/08/17 16:00 98.5 58 16 93/56 (68) 98 02/08/17 14:00 56 I/O 02/08/17 02/08/17 02/08/17 02/09/17 02/09/17 02/09/17 07:00 15:00 23:00 07:00 15:00 23:00 Intake Total 2478 ml 25 ml 647.1 ml 585 ml Output Total 550 ml 400 ml 350 ml Balance 1928 ml 25 ml 247.1 ml 235 ml Intake IV Total 2478 ml 25 ml 415.1 ml 200 ml Tube Feeding 232 ml 325 ml Other 60 ml Output Urine Total 500 ml 400 ml 350 ml Gastric Drainage Total 50 ml Physical Exam GENERAL: Intubated, sedated SKIN: Warm and dry. HEAD: Normocephalic. EYES: No scleral icterus. No injection or drainage. NECK: Supple, trachea midline. No JVD or lymphadenopathy. CARDIOVASCULAR: Regular rate and rhythm without murmurs, gallops, or rubs. RESPIRATORY: Breath sounds equal bilaterally. No accessory muscle use. GASTROINTESTINAL: Abdomen soft, non-tender, nondistended. MUSCULOSKELETAL: No cyanosis, or edema. Laboratory Laboratory Tests Test 02/08/17 14:37 02/09/17 06:01 Activated Partial Thromboplast Time 42.9 SEC White Blood Count 9.3 TH/MM3 Red Blood Count 4.25 MIL/MM3 Hemoglobin 13.8 GM/DL Hematocrit 40.0 % Mean Corpuscular Volume 94.1 FL Mean Corpuscular Hemoglobin 32.6 PG Mean Corpuscular Hemoglobin Concent 34.6 % Red Cell Distribution Width 14.6 % Platelet Count 170 TH/MM3 Mean Platelet Volume 8.9 FL Neutrophils (%) (Auto) 65.9 % Lymphocytes (%) (Auto) 20.5 % Monocytes (%) (Auto) 9.6 % Eosinophils (%) (Auto) 2.9 % Basophils (%) (Auto) 1.1 % Neutrophils # (Auto) 6.1 TH/MM3 Lymphocytes # (Auto) 1.9 TH/MM3 Monocytes # (Auto) 0.9 TH/MM3 Eosinophils # (Auto) 0.3 TH/MM3 Basophils # (Auto) 0.1 TH/MM3 CBC Comment DIFF FINAL Differential Comment Blood Urea Nitrogen 13 MG/DL Creatinine 0.63 MG/DL Random Glucose 97 MG/DL Calcium Level 8.1 MG/DL Phosphorus Level 3.7 MG/DL Magnesium Level 2.1 MG/DL Sodium Level 142 MEQ/L Potassium Level 4.3 MEQ/L Chloride Level 109 MEQ/L Carbon Dioxide Level 29.0 MEQ/L Anion Gap 4 MEQ/L Estimat Glomerular Filtration Rate 131 ML/MIN Phenytoin (Dilantin) Level 8.3 MCG/ML Carbamazepine (Tegretol) Level 5.3 MCG/ML Imaging Last 24 hours Impressions Brain MRI 02/09/17 0000 Signed Impressions: Service Date/Time: Thursday, February 09, 2017 10:42 - CONCLUSION: 1. 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 2. No acute intracranial abnormality. Schuyler Campos Jr., MD Assessment and Plan Problem List: (1) Status epilepticus ICD Codes: G40.301 - Status epilepticus Status: Acute (2) Ischemic cardiomyopathy ICD Codes: I25.5 - Ischemic cardiomyopathy Status: Acute (3) CAD (coronary artery disease) ICD Codes: I25.10 - CAD (coronary artery disease) Status: Acute (4) Respiratory failure, acute ICD Codes: J96.00 - Respiratory failure, acute Status: Acute (5) Marijuana use ICD Codes: F12.10 - Marijuana use Status: Acute (6) Tobacco abuse ICD Codes: Z72.0 - Tobacco use Status: Chronic (7) Alcohol abuse ICD Codes: F10.10 - Alcohol abuse Status: Acute Assessment and Plan No new cardiac issues. Continue ICU care. Wean off the vent as tolerated. Continue tx for CHF. Recommend medical management with aggressive risk factor modification. Problem Qualifiers (1) Respiratory failure, acute: Qualified Codes: J96.00 - Acute respiratory failure, unspecified whether with hypoxia or hypercapnia Warren Frazier MD Feb 09, 2017 13:16
--- NOTE | 2017-02-09 13:40 | MG ---
cc: JONY VINSON MD Lab No: [id number] Date: 02/08/2017 Age: Sex: M Race: DATE OF 1960 INDICATIONS FOR PROCEDURE A 56-year-old with history of difficulty with speech, weakness, possible seizure. FINDINGS 8-10 Hz posterior rhythm, 10-40 microvolts. Low-amplitude theta activity occurring. Generalized slowing suggestive of drowsy and sleep state, spindle activity. Reduced driving with photic stimulation. Single lead EKG showing sinus rhythm. Possible slight left temporal focal slowing compared to the right side, very minimal overall. INTERPRETATION Moderate encephalopathy, sleep state, increased theta spindles, may be related to psychotropic medication. Clinical correlation. Jony Vinson MD MG/SSB /7:11 AM /1:08 PM
[2017-02-10] VITALS (14 sets, daily range): BP systolic 135–173; BP diastolic 74–92; PULSE 63–89; RESP 15–27; TEMP 98.9–99.4; O2SAT 92–99
[2017-02-10] MEDS: CHLORHEXIDINE GLUCONATE 2 % 1 PACK (2 CLOTHS) TOP SCH (03:47)
[2017-02-10] MEDS: RESP: ALBUTEROL 2.5 MG/IPRATROPIUM 0.5 MG NEB (SCH) INH ×4 (04:10→22:52)
[2017-02-10] MEDS ORDERED: hydrALAZINE HCL 20 MG/ML VIAL IV PUSH PRN (05:00)
[2017-02-10] MEDS: INSULIN NovoLIN REGULAR SUPPLEMENTAL SCALE SQ SCH ×4 (06:00→17:06)
[2017-02-10] MEDS: FOSPHENYTOIN SODIUM 100 MG PE/2 ML VIAL IV SCH (06:00)
[2017-02-10] MEDS: ASPIRIN EC 81 MG TABEC PO SCH (08:32)
[2017-02-10] MEDS: carBAMazepine 200 MG TAB PO SCH ×2 (08:33→21:06)
[2017-02-10] MEDS: MULTIVITAMIN TAB PO SCH (08:33)
[2017-02-10] MEDS: THIAMINE HCL 100 MG TAB PO SCH (08:33)
[2017-02-10] MEDS: LANSOPRAZOLE SOLUTAB 30 MG TAB NG SCH (08:33)
[2017-02-10] MEDS: DOCUSATE SODIUM 50 MG/SENNA 8.6 MG TAB PO SCH ×2 (08:33→21:00)
[2017-02-10] MEDS: METOPROLOL TARTRATE 25 MG TAB PO SCH ×2 (08:34→21:07)
[2017-02-10] MEDS: CHLORHEXIDINE 0.12% (ORAL KIT) 15 ML CUP MT SCH ×2 (08:35→20:00)
[2017-02-10] MEDS: ENALAPRIL MALEATE 5 MG TAB PO SCH ×2 (08:35→21:07)
[2017-02-10] MEDS: SODIUM CHLORIDE 0.9% FLUSH 10 ML FLUSH IV FLUSH SCH ×2 (08:35→21:08)
[2017-02-10] MEDS: ARTIFICIAL TEARS OPTH SOLN 15 ML BTL EACH EYE SCH ×3 (08:35→17:11)
[2017-02-10] MEDS: HEPARIN SODIUM - SQ 10,000 UNITS/ML VIAL SQ SCH ×2 (08:36→21:07)
[2017-02-10] MEDS: cefTRIAXone INJ 1,000 MG in SODIUM CHLORIDE 0.9% INJ 100 ML IV SCH (08:41)
[2017-02-10] MEDS ORDERED: FUROSEMIDE 20 MG/2 ML VIAL IV PUSH ONE (09:00)
--- NOTE | 2017-02-10 09:05 | HHI.CCPN ---
Subjective Remarks/Hospital Course 56-year-old male. Date of admission 02/07/2017. Past medical history includes seizure disorder, traumatic brain injury, coronary disease, chronic systolic heart failure ejection fraction 25% and hypertension. History of EtOH and THC use Who presents to the emergency department having had onset of a seizure and right sided weakness 30 minutes prior to arrival. The emergency department he had evidence of right sided hemiparesis and intermittent intractable seizures. Patient was intubated receiving 20 mg etomidate and 100 mg succinylcholine. Patient was taken to CT scan brain revealed large area of old encephalomalacia. I reviewed the patient's past medical records and he has been here in the past with similar presentation diagnosed with status epilepticus. He also has had a traumatic left-sided subdural hematoma and subarachnoid hemorrhage in the past. Patient was given 2 mg of lorazepam and started on propofol. He was loaded with fosphenytoin 1 g. Patient will be admitted to the intensive care unit for further management. It is unlikely that this is an ischemic stroke. 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 Dr. Wiley was notified for stroke alert. 02/08 Patient is sedated with Diprivan and intubated. For MRI/MRA brain. Afebrile. 02/09 No events overnight. Sedated with Diprivan, fentanyl and intubated. MRI brain wasn't done last night for MRI brain today. 02/10 Patient s/p extubation yesterday. On 2L oxygen. Awake and alert. MRI brain showed no acute intracranial abnormalities. Objective Vital Signs Date Time Temp Pulse Resp B/P (MAP) Pulse Ox O2 Delivery O2 Flow Rate FiO2 02/10/17 06:00 69 02/10/17 04:00 99.5 17 173/92 (119) 96 02/09/17 20:48 Nasal Cannula 3.00 02/09/17 12:42 35 Intake and Output 02/10/17 02/10/17 02/11/17 08:00 16:00 00:00 Intake Total 60 ml Output Total 1800 ml Balance -1740 ml Result Diagram: 02/09/17 0601 02/09/17 0601 Imaging Last Impressions Brain MRI 02/09/17 0000 Signed Impressions: Service Date/Time: Thursday, February 09, 2017 10:42 - CONCLUSION: 1. 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 2. No acute intracranial abnormality. Schuyler Campos Jr., MD Chest X-Ray 02/08/17 0000 Signed Impressions: Service Date/Time: January 03:13 - CONCLUSION: ET tube and NG tube are well placed. The lungs appear clear. Jeffrey Veloz MD Neck CTA 02/07/17 0000 Signed Impressions: Service Date/Time: January 00:26 - CONCLUSION: Mild plaque in the carotid bulb and proximal internal carotid arteries without significant stenosis. Jeffrey Veloz MD Head CTA 02/07/17 0000 Signed Impressions: Service Date/Time: January 00:26 - CONCLUSION: Negative CTA of the head. Jeffrey Veloz MD Head CT 02/07/17 0000 Signed Impressions: Service Date/Time: Tuesday, February 07, 2017 17:32 - CONCLUSION: 1. Negative for acute process. 2. Left anterior temporal region 3. Negative for parenchymal hemorrhage Miguel Brown MD FACR Objective Remarks GENERAL: Patient is 56 yo lying in bed in NAD SKIN: Warm and dry. HEAD: Normocephalic. EYES: No scleral icterus. No injection or drainage. NECK: Supple, trachea midline. No JVD or lymphadenopathy. CARDIOVASCULAR: Regular rate and rhythm without murmurs, gallops, or rubs. RESPIRATORY: Breath sounds equal bilaterally. No accessory muscle use. GASTROINTESTINAL: Abdomen soft, non-tender, nondistended. MUSCULOSKELETAL: No cyanosis, or edema. Neuro: Awake and alert. A/P Assessment and Plan Neuro/Psych: Status epilepticus History of Traumatic brain injury -left subdural hematoma, subarachnoid hemorrhage and left zygomatic arch fracture, orbital wall fracture and maxillary antrum fracture CT brain revealed old left anterior temporal CVA/and supple malacia Neuro is following- Dr. Barber. MRI brain: No acute abnormalities EEG: Mod encephalopathy Given 1 g fosphenytoin. On Cerebyx 100 mg 3 times a day. Dilantin level :8.3 Continue carbamazepine 300mg Q12,. Level 5.3 CV: Elevated troponin Coronary artery disease Chronic Systolic heart failure ejection fraction 25% Monitor HR and BP keep MAP>65mmhg Monitor CK/trop (trop trending down). cards- Dr. Quadrat Continue with ASA, Lopressor 12.5mg Q12, add Lisinopril 5mg daily Lactic acid: 1.3 Echo showed EF 20-25% Resp: Acute hypoxemic respiratory failure Extubated 02/09 Continue with oxygen keep sat >92% Bronchodilators GI: Start PO heart healthy diet Lansoprazole for GI prophylaxis Docusate sodium/senna 1 tablet twice a day for bowel regimen : Monitor renal function. electrolytes replacement per protocol. Diurese with Lasix 20mg x1 Endo: SSI with Accu-Cheks to maintain euglycemia Heme: Monitor CBC. ID: UTI Continue Rocephin for UTI. Monitor for signs of infection( Fever, WBC) Follow up on 02/07- 02/22 bottles [facility]PC.. likely contaminant 02/09: NGTD MSK: PT evaluate and treat Access - Utilize peripheral IV. Prophylaxis - GI - lansoprazole - DVT - SCD/heparin SQ Will transfer to [facility] and consult [facility] for medical management. Level 3 Lalita Severino MD Feb 10, 2017 09:05
[2017-02-10 10:04] LABS: AUTOMATED NEUTROPHIL # 9.4 TH/MM3 (1.8-7.7); BASOPHIL # 0.1 TH/MM3 (0-0.2); BASOPHIL % 0.7 % (0.0-2.0); EOSINOPHIL # 0.2 TH/MM3 (0-0.4); EOSINOPHIL % 1.2 % (0.0-4.0); HEMATOCRIT 41.8 % (39.0-51.0); HEMO FLAGS DIFF FINAL; LYMPH % 12.9 % (9.0-44.0); LYMPHOCYTE # 1.6 TH/MM3 (1.0-4.8); MEAN CORPUSCULAR HEMOGLOBIN 31.8 PG (27.0-34.0); MEAN CORPUSCULAR HGB CONC 34.2 % (32.0-36.0); NEUT % 76.2 % (16.0-70.0); PLATELET COUNT 199 TH/MM3 (150-450); RED CELL DISTRIBUTION WIDTH 14.4 % (11.6-17.2); WHITE BLOOD COUNT 12.3 TH/MM3 (4.0-11.0)
--- NOTE | 2017-02-10 10:29 | HHI.PR ---
Review/Management Diagnosis/Plan: (1) Seizures ICD Codes: R56.9 - Unspecified convulsions Status: Acute Plan: hx of post-traumatic sz's has been in our clinic in the past; poor compliance recs ok for 5th floor with tele p.t. dilantin/tegretol po increase dil to 130mg tid no driving/climbing heights/swimming alone d/c planning today/tomorrow (2) Respiratory failure, acute ICD Codes: J96.00 - Respiratory failure, acute Status: Acute (3) TBI (traumatic brain injury) ICD Codes: S06.9X0A - TBI (traumatic brain injury) Status: Chronic Subjective Subjective Comments No acute events reported xcover nz/no cano/no focal weakness Active Medications Current Medications Medications (Trade) Dose Ordered Sig/Casandra Route Start Time Stop Time Status Last Admin (Ecotrin Ec) 162 mg DAILY PO 02/08/17 09:00 02/10/17 08:32 (Vasotec) 5 mg BID PO 02/07/17 21:00 02/10/17 08:35 (Lopressor) 12.5 mg Q12HR PO 02/07/17 21:00 02/10/17 08:34 (Cerebyx Inj) 100 mgpe Q8HR IV 02/07/17 22:00 02/10/17 06:00 (NS Flush) 2 ml UNSCH PRN IV FLUSH 02/07/17 19:45 (NS Flush) 2 ml BID IV FLUSH 02/07/17 21:00 02/10/17 08:35 (Tears Naturale Opth Soln) 1 drop TID EACH EYE 02/08/17 09:00 02/10/17 08:35 (Zofran Inj) 4 mg Q6H PRN IV PUSH 02/07/17 19:45 (Duoneb Neb) 1 ampule Q6HR NEB INH 02/07/17 22:00 02/10/17 08:56 (Albuterol Neb) 2.5 mg Q2HR NEB PRN INH 02/07/17 19:45 Miscellaneous Information 1 Q361D XX 02/07/17 19:45 02/07/17 19:45 (Chlorhexidine 2% Cloth) 3 pack Taper DAILY@04 TOP 02/08/17 04:00 02/04/18 03:59 02/10/17 03:47 (Chlorhexidine 2% Cloth) 3 pack UNSCH PRN TOP 02/07/17 19:45 (Kell-Colace) 1 tab BID PO 02/07/17 21:00 02/10/17 08:33 (Milk Of Magnesia Liq) 30 ml Q12H PRN PO 02/07/17 19:45 (Senokot) 17.2 mg Q12H PRN PO 02/07/17 19:45 (Dulcolax Supp) 10 mg DAILY PRN RECTAL 02/07/17 19:45 (Lactulose Liq) 30 ml DAILY PRN PO 02/07/17 19:45 (Peridex 0.12% Liq) 15 ml BID@08,20 MT 02/07/17 20:00 02/10/17 08:35 (Pill Splitter) 1 ea UNSCH PRN OTHER 02/07/17 20:00 (Prevacid Odt) 30 mg DAILY NG 02/08/17 09:00 02/10/17 08:33 (Tylenol 650 Mg/ 20 ml Liq) 650 mg Q6H PRN PO 02/07/17 20:00 (D50w (Vial) Inj) 50 ml UNSCH PRN IV PUSH 02/07/17 20:00 (Glucagon Inj) 1 mg UNSCH PRN OTHER 02/07/17 20:00 (NovoLIN R SUPPLEMENTAL SCALE) 1 Q6HR SQ 02/08/17 00:00 Potassium Chloride 100 ml @ 50 mls/hr Q2H PRN IV 02/08/17 07:45 Potassium Chloride 100 ml @ 50 mls/hr Q2H PRN IV 02/08/17 07:45 (K-Lyte Cl Eff) 50 meq UNSCH PRN PO 02/08/17 07:45 Potassium Chloride 100 ml @ 25 mls/hr UNSCH PRN IV 02/08/17 07:45 Potassium Chloride 100 ml @ 50 mls/hr Q2H PRN IV 02/08/17 07:45 Magnesium Sulfate 4 gm/Sodium Chloride 100 ml @ 50 mls/hr UNSCH PRN IV 02/08/17 07:45 (Mag-Ox) 800 mg UNSCH PRN PO 02/08/17 07:45 Magnesium Sulfate 2 gm/Sodium Chloride 100 ml @ 50 mls/hr UNSCH PRN IV 02/08/17 07:45 (K-Phos) 2,000 mg Q4H PRN PO 02/08/17 07:45 Sodium Phosphate 30 mmol/Sodium Chloride 250 ml @ 42 mls/hr UNSCH PRN IV 02/08/17 07:45 (K-Phos) 2,000 mg UNSCH PRN PO/TUBE 02/08/17 07:45 Potassium Phosphate 30 mmol/ Sodium Chloride 260 ml @ 42 mls/hr UNSCH PRN IV 02/08/17 07:45 (Vitamin B1) 100 mg DAILY PO 02/08/17 09:00 02/10/17 08:33 (Theragran) 1 tab DAILY PO 02/08/17 09:00 02/10/17 08:33 Ceftriaxone Sodium 1000 mg/ Sodium Chloride 100 ml @ 200 mls/hr Q24H IV 02/08/17 08:00 02/10/17 08:41 (TEGretol) 300 mg Q12HR PO 02/08/17 10:00 02/10/17 08:33 (Heparin Inj) 5,000 units Q12HR SQ 02/08/17 21:00 02/10/17 08:36 (Apresoline Inj) 10 mg Q4H PRN IV PUSH 02/10/17 05:00 02/10/17 06:00 (Prinivil) 5 mg DAILY PO 02/10/17 09:00 Allergies Allergies Coded Allergies No Known Allergies (Verified Allergy, Unknown, 02/07/17) Review of Systems Constitutional: Generalized Pain Respiratory: Other Cardiovascular: Other Psychiatric: Other All other ROS: ROS reviewed as documented in chart Exam I&O / VS Vital Signs Date Time Temp Pulse Resp B/P (MAP) Pulse Ox O2 Delivery O2 Flow Rate FiO2 02/10/17 10:00 89 02/10/17 08:57 96 Nasal Cannula 2.00 02/10/17 08:00 98.9 79 15 156/81 (106) 93 02/10/17 08:00 79 02/10/17 06:00 69 02/10/17 04:00 65 02/10/17 04:00 99.5 65 17 173/92 (119) 96 02/10/17 02:00 67 02/10/17 00:00 99.5 63 16 153/92 (112) 95 02/10/17 00:00 63 02/09/17 22:00 67 02/09/17 20:48 95 Nasal Cannula 3.00 02/09/17 20:00 65 02/09/17 20:00 99.9 65 19 149/84 (105) 02/09/17 18:00 59 02/09/17 16:00 99.3 70 17 148/85 (106) 97 02/09/17 16:00 59 02/09/17 15:21 94 Nasal Cannula 5 02/09/17 14:00 59 02/09/17 12:42 98 35 02/09/17 12:28 35 02/09/17 12:00 99.3 61 16 114/69 (84) 94 02/09/17 12:00 59 02/09/17 12:00 35 02/09/17 11:29 100 General: Alert and Oriented Eye: EOMI Respiratory: Non-labored respirations, Symmetrical expansion Cardiology: Normal rate Musculoskeletal: Deformity, Other Neurologic: Alert, Oriented, No focal defects, CN II-XII intact Psychiatric: Cooperative, Appropriate mood & affect Objective Micro and Labs Laboratory Tests Test 02/10/17 09:45 White Blood Count 12.3 Red Blood Count 4.50 Hemoglobin 14.3 Hematocrit 41.8 Mean Corpuscular Volume 93.0 Mean Corpuscular Hemoglobin 31.8 Mean Corpuscular Hemoglobin Concent 34.2 Red Cell Distribution Width 14.4 Platelet Count 199 Mean Platelet Volume 8.5 Neutrophils (%) (Auto) 76.2 Lymphocytes (%) (Auto) 12.9 Monocytes (%) (Auto) 9.0 Eosinophils (%) (Auto) 1.2 Basophils (%) (Auto) 0.7 Neutrophils # (Auto) 9.4 Lymphocytes # (Auto) 1.6 Monocytes # (Auto) 1.1 Eosinophils # (Auto) 0.2 Basophils # (Auto) 0.1 CBC Comment DIFF FINAL Differential Comment Date/Time Source Procedure Growth Status 02/09/17 19:03 Blood Peripheral Aerobic Blood Culture Pending Received 02/09/17 19:03 Blood Peripheral Anaerobic Blood Culture Pending Received Problem Qualifiers (1) Respiratory failure, acute: Qualified Codes: J96.00 - Acute respiratory failure, unspecified whether with hypoxia or hypercapnia Mitul Marquez MD Feb 10, 2017 10:29
[2017-02-10] MEDS: PHENYTOIN SODIUM 30 MG CAP PO SCH ×2 (11:00→18:36)
[2017-02-10] MEDS: PHENYTOIN SODIUM 100 MG CAP PO SCH ×2 (11:15→18:36)
[2017-02-10] MEDS: LISINOPRIL 5 MG TAB PO SCH (11:55)
[2017-02-10 12:48] LABS: POTASSIUM 3.4 MEQ/L (3.5-5.1)
[2017-02-10 12:59] LABS: BICARBONATE 27.7 MEQ/L (21.0-32.0); MAGNESIUM 1.8 MG/DL (1.5-2.5)
--- NOTE | 2017-02-10 15:42 | PD.CARD.PN ---
Subjective Subjective Remarks Extubated, no CP or SOB Objective Medications Current Medications Medications (Trade) Dose Ordered Sig/Casandra Route Start Time Stop Time Status Last Admin (Ecotrin Ec) 162 mg DAILY PO 02/08/17 09:00 02/10/17 08:32 (Vasotec) 5 mg BID PO 02/07/17 21:00 02/10/17 08:35 (Lopressor) 12.5 mg Q12HR PO 02/07/17 21:00 02/10/17 08:34 (NS Flush) 2 ml UNSCH PRN IV FLUSH 02/07/17 19:45 (NS Flush) 2 ml BID IV FLUSH 02/07/17 21:00 02/10/17 08:35 (Tears Naturale Opth Soln) 1 drop TID EACH EYE 02/08/17 09:00 02/10/17 11:55 (Zofran Inj) 4 mg Q6H PRN IV PUSH 02/07/17 19:45 (Duoneb Neb) 1 ampule Q6HR NEB INH 02/07/17 22:00 02/10/17 15:34 (Albuterol Neb) 2.5 mg Q2HR NEB PRN INH 02/07/17 19:45 Miscellaneous Information 1 Q361D XX 02/07/17 19:45 02/07/17 19:45 (Chlorhexidine 2% Cloth) 3 pack Taper DAILY@04 TOP 02/08/17 04:00 02/04/18 03:59 02/10/17 03:47 (Chlorhexidine 2% Cloth) 3 pack UNSCH PRN TOP 02/07/17 19:45 (Kell-Colace) 1 tab BID PO 02/07/17 21:00 02/10/17 08:33 (Milk Of Magnesia Liq) 30 ml Q12H PRN PO 02/07/17 19:45 (Senokot) 17.2 mg Q12H PRN PO 02/07/17 19:45 (Dulcolax Supp) 10 mg DAILY PRN RECTAL 02/07/17 19:45 (Lactulose Liq) 30 ml DAILY PRN PO 02/07/17 19:45 (Peridex 0.12% Liq) 15 ml BID@08,20 MT 02/07/17 20:00 02/10/17 08:35 (Pill Splitter) 1 ea UNSCH PRN OTHER 02/07/17 20:00 (Prevacid Odt) 30 mg DAILY NG 02/08/17 09:00 02/10/17 08:33 (Tylenol 650 Mg/ 20 ml Liq) 650 mg Q6H PRN PO 02/07/17 20:00 (D50w (Vial) Inj) 50 ml UNSCH PRN IV PUSH 02/07/17 20:00 (Glucagon Inj) 1 mg UNSCH PRN OTHER 02/07/17 20:00 (NovoLIN R SUPPLEMENTAL SCALE) 1 Q6HR SQ 02/08/17 00:00 Potassium Chloride 100 ml @ 50 mls/hr Q2H PRN IV 02/08/17 07:45 Potassium Chloride 100 ml @ 50 mls/hr Q2H PRN IV 02/08/17 07:45 (K-Lyte Cl Eff) 50 meq UNSCH PRN PO 02/08/17 07:45 02/10/17 13:28 Potassium Chloride 100 ml @ 25 mls/hr UNSCH PRN IV 02/08/17 07:45 Potassium Chloride 100 ml @ 50 mls/hr Q2H PRN IV 02/08/17 07:45 Magnesium Sulfate 4 gm/Sodium Chloride 100 ml @ 50 mls/hr UNSCH PRN IV 02/08/17 07:45 (Mag-Ox) 800 mg UNSCH PRN PO 02/08/17 07:45 Magnesium Sulfate 2 gm/Sodium Chloride 100 ml @ 50 mls/hr UNSCH PRN IV 02/08/17 07:45 (K-Phos) 2,000 mg Q4H PRN PO 02/08/17 07:45 Sodium Phosphate 30 mmol/Sodium Chloride 250 ml @ 42 mls/hr UNSCH PRN IV 02/08/17 07:45 (K-Phos) 2,000 mg UNSCH PRN PO/TUBE 02/08/17 07:45 Potassium Phosphate 30 mmol/ Sodium Chloride 260 ml @ 42 mls/hr UNSCH PRN IV 02/08/17 07:45 (Vitamin B1) 100 mg DAILY PO 02/08/17 09:00 02/10/17 08:33 (Theragran) 1 tab DAILY PO 02/08/17 09:00 02/10/17 08:33 Ceftriaxone Sodium 1000 mg/ Sodium Chloride 100 ml @ 200 mls/hr Q24H IV 02/08/17 08:00 02/10/17 08:41 (TEGretol) 300 mg Q12HR PO 02/08/17 10:00 02/10/17 08:33 (Heparin Inj) 5,000 units Q12HR SQ 02/08/17 21:00 02/10/17 08:36 (Apresoline Inj) 10 mg Q4H PRN IV PUSH 02/10/17 05:00 02/10/17 06:00 (Prinivil) 5 mg DAILY PO 02/10/17 09:00 02/10/17 11:55 (Dilantin) 100 mg Q8H PO 02/10/17 11:00 02/10/17 11:15 (Dilantin) 30 mg Q8H PO 02/10/17 11:00 02/10/17 11:00 Vital Signs / I&O Vital Signs Date Time Temp Pulse Resp B/P (MAP) Pulse Ox O2 Delivery O2 Flow Rate FiO2 02/10/17 14:00 70 02/10/17 12:00 99.4 81 27 165/83 (110) 94 02/10/17 12:00 81 02/10/17 10:00 89 02/10/17 08:57 96 Nasal Cannula 2.00 02/10/17 08:00 98.9 79 15 156/81 (106) 93 02/10/17 08:00 79 02/10/17 06:00 69 02/10/17 04:00 65 02/10/17 04:00 99.5 65 17 173/92 (119) 96 02/10/17 02:00 67 02/10/17 00:00 99.5 63 16 153/92 (112) 95 02/10/17 00:00 63 02/09/17 22:00 67 02/09/17 20:48 95 Nasal Cannula 3.00 02/09/17 20:00 65 02/09/17 20:00 99.9 65 19 149/84 (105) 02/09/17 18:00 59 02/09/17 16:00 99.3 70 17 148/85 (106) 97 02/09/17 16:00 59 I/O 02/09/17 02/09/17 02/09/17 02/10/17 02/10/17 02/10/17 07:00 15:00 23:00 07:00 15:00 23:00 Intake Total 585 ml 914 ml 60 ml 100 ml Output Total 350 ml 550 ml 1800 ml Balance 235 ml 364 ml -1740 ml 100 ml Intake Oral 120 ml 60 ml IV Total 200 ml 550 ml 100 ml Tube Feeding 325 ml 244 ml Other 60 ml Output Urine Total 350 ml 550 ml 1800 ml # Bowel Movements 1 Physical Exam GENERAL:In NAD SKIN: Warm and dry. HEAD: Normocephalic. EYES: No scleral icterus. No injection or drainage. NECK: Supple, trachea midline. No JVD or lymphadenopathy. CARDIOVASCULAR: Regular rate and rhythm without murmurs, gallops, or rubs. RESPIRATORY: Breath sounds equal bilaterally. No accessory muscle use. GASTROINTESTINAL: Abdomen soft, non-tender, nondistended. MUSCULOSKELETAL: No cyanosis, or edema. Laboratory Laboratory Tests Test 02/10/17 09:45 02/10/17 12:00 White Blood Count 12.3 TH/MM3 Red Blood Count 4.50 MIL/MM3 Hemoglobin 14.3 GM/DL Hematocrit 41.8 % Mean Corpuscular Volume 93.0 FL Mean Corpuscular Hemoglobin 31.8 PG Mean Corpuscular Hemoglobin Concent 34.2 % Red Cell Distribution Width 14.4 % Platelet Count 199 TH/MM3 Mean Platelet Volume 8.5 FL Neutrophils (%) (Auto) 76.2 % Lymphocytes (%) (Auto) 12.9 % Monocytes (%) (Auto) 9.0 % Eosinophils (%) (Auto) 1.2 % Basophils (%) (Auto) 0.7 % Neutrophils # (Auto) 9.4 TH/MM3 Lymphocytes # (Auto) 1.6 TH/MM3 Monocytes # (Auto) 1.1 TH/MM3 Eosinophils # (Auto) 0.2 TH/MM3 Basophils # (Auto) 0.1 TH/MM3 CBC Comment DIFF FINAL Differential Comment Blood Urea Nitrogen 8 MG/DL Creatinine 0.59 MG/DL Random Glucose 114 MG/DL Calcium Level 8.3 MG/DL Phosphorus Level 2.9 MG/DL Magnesium Level 1.8 MG/DL Sodium Level 141 MEQ/L Potassium Level 3.4 MEQ/L Chloride Level 106 MEQ/L Carbon Dioxide Level 27.7 MEQ/L Anion Gap 7 MEQ/L Estimat Glomerular Filtration Rate 142 ML/MIN Phenytoin (Dilantin) Level 9.0 MCG/ML Carbamazepine (Tegretol) Level 6.1 MCG/ML Assessment and Plan Problem List: (1) Status epilepticus ICD Codes: G40.301 - Status epilepticus Status: Acute (2) Ischemic cardiomyopathy ICD Codes: I25.5 - Ischemic cardiomyopathy Status: Acute (3) CAD (coronary artery disease) ICD Codes: I25.10 - CAD (coronary artery disease) Status: Acute (4) Respiratory failure, acute ICD Codes: J96.00 - Respiratory failure, acute Status: Acute (5) Marijuana use ICD Codes: F12.10 - Marijuana use Status: Acute (6) Tobacco abuse ICD Codes: Z72.0 - Tobacco use Status: Chronic (7) Alcohol abuse ICD Codes: F10.10 - Alcohol abuse Status: Acute Assessment and Plan Weaned and extubated. No angina or CHF exacerbation. Continue tx for CHF. Recommend medical management with aggressive risk factor modification. Counseled to quit smoking and taking his meds. Problem Qualifiers (1) Respiratory failure, acute: Qualified Codes: J96.00 - Acute respiratory failure, unspecified whether with hypoxia or hypercapnia Warren Frazier MD Feb 10, 2017 15:42
[2017-02-11] VITALS (13 sets, daily range): BP systolic 141–175; BP diastolic 76–94; PULSE 68–84; RESP 18–20; TEMP 97.7–99.2; O2SAT 92–98
[2017-02-11] MEDS: PHENYTOIN SODIUM 100 MG CAP PO SCH ×3 (03:46→18:18)
[2017-02-11] MEDS: PHENYTOIN SODIUM 30 MG CAP PO SCH ×3 (03:46→18:18)
[2017-02-11] MEDS: CHLORHEXIDINE GLUCONATE 2 % 1 PACK (2 CLOTHS) TOP SCH (03:46)
[2017-02-11] MEDS: RESP: ALBUTEROL 2.5 MG/IPRATROPIUM 0.5 MG NEB (SCH) INH ×4 (04:08→20:52)
[2017-02-11] MEDS ORDERED: ENALAPRILAT 1.25 MG/ML VIAL IV PUSH ONE (04:45)
[2017-02-11] MEDS: INSULIN NovoLIN REGULAR SUPPLEMENTAL SCALE SQ SCH ×4 (06:12→17:42)
[2017-02-11 08:03] LABS: AUTOMATED NEUTROPHIL # 9.3 TH/MM3 (1.8-7.7); BASOPHIL # 0.1 TH/MM3 (0-0.2); BASOPHIL % 0.8 % (0.0-2.0); EOSINOPHIL # 0.3 TH/MM3 (0-0.4); EOSINOPHIL % 2.6 % (0.0-4.0); HEMATOCRIT 41.6 % (39.0-51.0); HEMO FLAGS DIFF FINAL; LYMPH % 15.2 % (9.0-44.0); MEAN CELL VOLUME 94.2 FL (80.0-100.0); MEAN CORPUSCULAR HEMOGLOBIN 31.9 PG (27.0-34.0); MEAN CORPUSCULAR HGB CONC 33.9 % (32.0-36.0); MONO % 10.7 % (0.0-8.0); NEUT % 70.7 % (16.0-70.0); PLATELET COUNT 224 TH/MM3 (150-450); RED BLOOD COUNT 4.42 MIL/MM3 (4.50-5.90); RED CELL DISTRIBUTION WIDTH 14.4 % (11.6-17.2); WHITE BLOOD COUNT 13.2 TH/MM3 (4.0-11.0)
[2017-02-11 08:26] LABS: BICARBONATE 26.1 MEQ/L (21.0-32.0); MAGNESIUM 1.9 MG/DL (1.5-2.5)
[2017-02-11] MEDS: ENALAPRIL MALEATE 5 MG TAB PO SCH ×2 (08:26→21:25)
[2017-02-11] MEDS: ASPIRIN EC 81 MG TABEC PO SCH (08:27)
[2017-02-11] MEDS: DOCUSATE SODIUM 50 MG/SENNA 8.6 MG TAB PO SCH ×2 (08:27→21:26)
[2017-02-11] MEDS: METOPROLOL TARTRATE 25 MG TAB PO SCH ×2 (08:27→21:25)
[2017-02-11] MEDS: THIAMINE HCL 100 MG TAB PO SCH (08:27)
[2017-02-11] MEDS: MULTIVITAMIN TAB PO SCH (08:28)
[2017-02-11] MEDS: LANSOPRAZOLE SOLUTAB 30 MG TAB NG SCH (08:28)
[2017-02-11] MEDS: LISINOPRIL 5 MG TAB PO SCH (08:28)
[2017-02-11] MEDS: HEPARIN SODIUM - SQ 10,000 UNITS/ML VIAL SQ SCH ×2 (08:29→21:28)
[2017-02-11] MEDS: carBAMazepine 200 MG TAB PO SCH ×2 (08:36→21:26)
--- NOTE | 2017-02-11 09:23 | HHI.PR ---
Subjective Remarks 56 years old right hand ed male awake and alert, no complains of headaches, anusea or vomiting comfortable, no dyspnea good sats at room air Objective Vitals Vital Signs Date Time Temp Pulse Resp B/P (MAP) Pulse Ox O2 Delivery O2 Flow Rate FiO2 02/11/17 08:13 98.5 75 18 175/83 (113) 94 02/11/17 05:25 148/86 (106) 02/11/17 04:12 98 02/11/17 04:00 98.8 68 18 168/94 (118) 95 02/11/17 02:00 84 02/11/17 00:00 99.2 84 20 152/76 (101) 98 02/10/17 22:00 80 02/10/17 20:01 92 02/10/17 20:00 99.1 79 20 145/86 (105) 92 02/10/17 20:00 79 02/10/17 18:00 77 02/10/17 16:00 74 02/10/17 16:00 99.1 79 23 135/74 (94) 99 02/10/17 14:00 70 02/10/17 12:00 99.4 81 27 165/83 (110) 94 02/10/17 12:00 81 02/10/17 10:00 89 I/O 02/10/17 02/10/17 02/10/17 02/11/17 02/11/17 02/11/17 07:00 15:00 23:00 07:00 15:00 23:00 Intake Total 60 ml 100 ml 975 ml 360 ml Output Total 1800 ml 1700 ml 1600 ml Balance -1740 ml 100 ml -725 ml -1240 ml Intake Oral 60 ml 975 ml 360 ml IV Total 100 ml Output Urine Total 1800 ml 1700 ml 1600 ml Result Diagram: 02/11/1762102/11/17621 Imaging Last Impressions Brain MRI 02/09/17 0000 Signed Impressions: Service Date/Time: Thursday, February 09, 2017 10:42 - CONCLUSION: 1. 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 2. No acute intracranial abnormality. Schuyler Campos Jr., MD Chest X-Ray 02/08/17 0000 Signed Impressions: Service Date/Time: January 03:13 - CONCLUSION: ET tube and NG tube are well placed. The lungs appear clear. Jeffrey Veloz MD Neck CTA 02/07/17 0000 Signed Impressions: Service Date/Time: January 00:26 - CONCLUSION: Mild plaque in the carotid bulb and proximal internal carotid arteries without significant stenosis. Jeffrey Veloz MD Head CTA 02/07/17 0000 Signed Impressions: Service Date/Time: January 00:26 - CONCLUSION: Negative CTA of the head. Jeffrey Veloz MD Head CT 02/07/17 0000 Signed Impressions: Service Date/Time: Tuesday, February 07, 2017 17:32 - CONCLUSION: 1. Negative for acute process. 2. Left anterior temporal region 3. Negative for parenchymal hemorrhage Miguel Brown MD FACR Objective Remarks awake and alert, oriented x 3 speech clear anicteric, EOM full ROM, no facial asymmetry, tongue midline no nuchal rigidity lungs- clear regular rhythm abdomen soft, nontender extremities no edema, no calf tenderness grossly no sensory deficits gait slow but steady A/P Problem List: (1) Hypertension ICD Code: I10 - Essential (primary) hypertension (2) Hyperkalemia ICD Code: E87.5 - Hyperkalemia (3) Status epilepticus ICD Code: G40.301 - Status epilepticus Status: Acute (4) Respiratory failure, acute ICD Code: J96.00 - Respiratory failure, acute Status: Acute (5) Leukocytosis ICD Code: D72.829 - Leukocytosis Status: Acute (6) Marijuana use ICD Code: F12.10 - Marijuana use Status: Acute Assessment and Plan 56 years old male right handed male admitted for Status Epilepticus history of SZ disorder history of TBI 2012- with left subdural hematoma, SAH and Left zygomatic fracture/orbital wall fracture and maxillary antrum fracture baseline states he is independent- goes biking everyday last seizure episode was about few months ago- ff by Dr. Junior on Tegretol - on Carbamazepine and Dilantin - d/w on it now and monitor - Neurology - Dr. Jenkins ff CT brain revealed old left anterior temporal CVA/and supple [facility] is following- Dr. Barber. MRI brain: No acute abnormalities EEG: Mod encephalopathy -Continue carbamazepine 300mg Q12,. Level 5.3- - currently on Tegretol and Dilantin - d/w him we will monitor - up and ambulate History of Coronary artery disease- stents placed Chronic Systolic heart failure ejection fraction 25% Hypertension- elevated readings - not in clinical failure Continue with ASA, Lopressor 12.5mg Q12, Increase Lisinopril to 10 mg bid Lactic acid: 1.3 Echo showed EF 20-25% S/P Acute hypoxemic respiratory failure- resolved Extubated 02/09 tobacco use -Continue with oxygen keep sat >92% -Bronchodilators prn - patient smoker - smokes 1 pack per day- cessation advised- I will very motivated GI: Start PO heart healthy diet Lansoprazole for GI prophylaxis Docusate sodium/senna 1 tablet twice a day for bowel regimen : Monitor renal function. electrolytes replacement per protocol. Endo: SSI with Accu-Cheks to maintain euglycemia Heme: Monitor CBC. ID: UTI Continue Rocephin for UTI. Monitor for signs of infection( Fever, WBC) Follow up on BC 02/07- 02/22 bottles [facility]PC.. likely contaminant 02/09: NGTD MSK: PT evaluate and treat Prophylaxis - GI - lansoprazole - DVT - SCD/heparin SQ Problem Qualifiers (1) Hypertension: Qualified Codes: I10 - Essential (primary) hypertension (2) Respiratory failure, acute: Qualified Codes: J96.00 - Acute respiratory failure, unspecified whether with hypoxia or hypercapnia (3) Leukocytosis: Qualified Codes: D72.828 - Other elevated white blood cell count Yandel Harris MD Feb 11, 2017 09:23
[2017-02-11] MEDS ORDERED: LISINOPRIL 5 MG TAB PO ONE (10:00)
[2017-02-11] MEDS: cefTRIAXone INJ 1,000 MG in SODIUM CHLORIDE 0.9% INJ 100 ML IV SCH (10:38)
[2017-02-11] MEDS: CHLORHEXIDINE 0.12% (ORAL KIT) 15 ML CUP MT SCH ×2 (10:43→20:00)
[2017-02-11] MEDS: ARTIFICIAL TEARS OPTH SOLN 15 ML BTL EACH EYE SCH ×3 (10:43→17:42)
[2017-02-11] MEDS: SODIUM CHLORIDE 0.9% FLUSH 10 ML FLUSH IV FLUSH SCH ×2 (10:43→21:31)
--- NOTE | 2017-02-11 17:07 | PD.CARD.PN ---
Subjective Subjective Remarks No CP or SOB, feels much better Objective Medications Current Medications Medications (Trade) Dose Ordered Sig/Casandra Route Start Time Stop Time Status Last Admin (Ecotrin Ec) 162 mg DAILY PO 02/08/17 09:00 02/11/17 08:27 (Vasotec) 5 mg BID PO 02/07/17 21:00 02/11/17 08:26 (Lopressor) 12.5 mg Q12HR PO 02/07/17 21:00 02/11/17 08:27 (NS Flush) 2 ml UNSCH PRN IV FLUSH 02/07/17 19:45 (NS Flush) 2 ml BID IV FLUSH 02/07/17 21:00 02/11/17 10:43 (Tears Naturale Opth Soln) 1 drop TID EACH EYE 02/08/17 09:00 02/10/17 17:11 (Zofran Inj) 4 mg Q6H PRN IV PUSH 02/07/17 19:45 (Duoneb Neb) 1 ampule Q6HR NEB INH 02/07/17 22:00 02/11/17 10:01 (Albuterol Neb) 2.5 mg Q2HR NEB PRN INH 02/07/17 19:45 Miscellaneous Information 1 Q361D XX 02/07/17 19:45 02/07/17 19:45 (Chlorhexidine 2% Cloth) 3 pack Taper DAILY@04 TOP 02/08/17 04:00 02/04/18 03:59 02/10/17 03:47 (Chlorhexidine 2% Cloth) 3 pack UNSCH PRN TOP 02/07/17 19:45 (Kell-Colace) 1 tab BID PO 02/07/17 21:00 02/11/17 08:27 (Milk Of Magnesia Liq) 30 ml Q12H PRN PO 02/07/17 19:45 (Senokot) 17.2 mg Q12H PRN PO 02/07/17 19:45 (Dulcolax Supp) 10 mg DAILY PRN RECTAL 02/07/17 19:45 (Lactulose Liq) 30 ml DAILY PRN PO 02/07/17 19:45 (Peridex 0.12% Liq) 15 ml BID@08,20 MT 02/07/17 20:00 02/10/17 08:35 (Pill Splitter) 1 ea UNSCH PRN OTHER 02/07/17 20:00 (Prevacid Odt) 30 mg DAILY NG 02/08/17 09:00 02/11/17 08:28 (Tylenol 650 Mg/ 20 ml Liq) 650 mg Q6H PRN PO 02/07/17 20:00 (D50w (Vial) Inj) 50 ml UNSCH PRN IV PUSH 02/07/17 20:00 (Glucagon Inj) 1 mg UNSCH PRN OTHER 02/07/17 20:00 (NovoLIN R SUPPLEMENTAL SCALE) 1 Q6HR SQ 02/08/17 00:00 (Vitamin B1) 100 mg DAILY PO 02/08/17 09:00 02/11/17 08:27 (Theragran) 1 tab DAILY PO 02/08/17 09:00 02/11/17 08:28 Ceftriaxone Sodium 1000 mg/ Sodium Chloride 100 ml @ 200 mls/hr Q24H IV 02/08/17 08:00 02/11/17 10:38 (TEGretol) 300 mg Q12HR PO 02/08/17 10:00 02/11/17 08:36 (Heparin Inj) 5,000 units Q12HR SQ 02/08/17 21:00 02/11/17 08:29 (Apresoline Inj) 10 mg Q4H PRN IV PUSH 02/10/17 05:00 02/10/17 06:00 (Dilantin) 100 mg Q8H PO 02/10/17 11:00 02/11/17 10:43 (Dilantin) 30 mg Q8H PO 02/10/17 11:00 02/11/17 10:42 (Prinivil) 10 mg DAILY PO 02/12/17 09:00 Vital Signs / I&O Vital Signs Date Time Temp Pulse Resp B/P (MAP) Pulse Ox O2 Delivery O2 Flow Rate FiO2 02/11/17 16:11 98.3 74 20 157/87 (110) 94 02/11/17 14:25 76 02/11/17 12:06 97.7 81 18 172/83 (112) 94 02/11/17 10:01 97 21 02/11/17 08:13 98.5 75 18 175/83 (113) 94 02/11/17 05:25 148/86 (106) 02/11/17 04:12 98 02/11/17 04:00 98.8 68 18 168/94 (118) 95 02/11/17 02:00 84 02/11/17 00:00 99.2 84 20 152/76 (101) 98 02/10/17 22:00 80 02/10/17 20:01 92 02/10/17 20:00 99.1 79 20 145/86 (105) 92 02/10/17 20:00 79 02/10/17 18:00 77 I/O 02/10/17 02/10/17 02/10/17 02/11/17 02/11/17 02/11/17 07:00 15:00 23:00 07:00 15:00 23:00 Intake Total 60 ml 100 ml 975 ml 360 ml 480 ml Output Total 1800 ml 1700 ml 1600 ml 500 ml Balance -1740 ml 100 ml -725 ml -1240 ml -20 ml Intake Oral 60 ml 975 ml 360 ml 480 ml IV Total 100 ml Output Urine Total 1800 ml 1700 ml 1600 ml 500 ml Physical Exam GENERAL:In NAD SKIN: Warm and dry. HEAD: Normocephalic. EYES: No scleral icterus. No injection or drainage. NECK: Supple, trachea midline. No JVD or lymphadenopathy. CARDIOVASCULAR: Regular rate and rhythm without murmurs, gallops, or rubs. RESPIRATORY: Breath sounds equal bilaterally. No accessory muscle use. GASTROINTESTINAL: Abdomen soft, non-tender, nondistended. MUSCULOSKELETAL: No cyanosis, or edema. Laboratory Laboratory Tests Test 02/11/17 06:22 White Blood Count 13.2 TH/MM3 Red Blood Count 4.42 MIL/MM3 Hemoglobin 14.1 GM/DL Hematocrit 41.6 % Mean Corpuscular Volume 94.2 FL Mean Corpuscular Hemoglobin 31.9 PG Mean Corpuscular Hemoglobin Concent 33.9 % Red Cell Distribution Width 14.4 % Platelet Count 224 TH/MM3 Mean Platelet Volume 8.0 FL Neutrophils (%) (Auto) 70.7 % Lymphocytes (%) (Auto) 15.2 % Monocytes (%) (Auto) 10.7 % Eosinophils (%) (Auto) 2.6 % Basophils (%) (Auto) 0.8 % Neutrophils # (Auto) 9.3 TH/MM3 Lymphocytes # (Auto) 2.0 TH/MM3 Monocytes # (Auto) 1.4 TH/MM3 Eosinophils # (Auto) 0.3 TH/MM3 Basophils # (Auto) 0.1 TH/MM3 CBC Comment DIFF FINAL Differential Comment Blood Urea Nitrogen 9 MG/DL Creatinine 0.63 MG/DL Random Glucose 94 MG/DL Calcium Level 8.4 MG/DL Phosphorus Level 2.8 MG/DL Magnesium Level 1.9 MG/DL Sodium Level 141 MEQ/L Potassium Level 4.0 MEQ/L Chloride Level 108 MEQ/L Carbon Dioxide Level 26.1 MEQ/L Anion Gap 7 MEQ/L Estimat Glomerular Filtration Rate 131 ML/MIN Phenytoin (Dilantin) Level 8.7 MCG/ML Carbamazepine (Tegretol) Level 5.7 MCG/ML Assessment and Plan Problem List: (1) Status epilepticus ICD Codes: G40.301 - Status epilepticus Status: Acute (2) Ischemic cardiomyopathy ICD Codes: I25.5 - Ischemic cardiomyopathy Status: Acute (3) CAD (coronary artery disease) ICD Codes: I25.10 - CAD (coronary artery disease) Status: Acute (4) Respiratory failure, acute ICD Codes: J96.00 - Respiratory failure, acute Status: Acute (5) Marijuana use ICD Codes: F12.10 - Marijuana use Status: Acute (6) Tobacco abuse ICD Codes: Z72.0 - Tobacco use Status: Chronic (7) Alcohol abuse ICD Codes: F10.10 - Alcohol abuse Status: Acute Assessment and Plan No new cardiac issues. No angina or CHF exacerbation. Continue tx for CHF. Recommend medical management including aggressive risk factor modification. Counseled to quit smoking and taking his meds as prescribed. Increase activity. Problem Qualifiers (1) Respiratory failure, acute: Qualified Codes: J96.00 - Acute respiratory failure, unspecified whether with hypoxia or hypercapnia Warren Frazier MD Feb 11, 2017 17:07
[2017-02-12] VITALS (9 sets, daily range): BP systolic 124–153; BP diastolic 73–92; PULSE 61–85; RESP 18–20; TEMP 97.7–98.6; O2SAT 92–97
[2017-02-12] MEDS: PHENYTOIN SODIUM 30 MG CAP PO SCH ×3 (03:05→18:16)
[2017-02-12] MEDS: PHENYTOIN SODIUM 100 MG CAP PO SCH ×3 (03:06→18:16)
[2017-02-12] MEDS: CHLORHEXIDINE GLUCONATE 2 % 1 PACK (2 CLOTHS) TOP SCH (04:00)
[2017-02-12] MEDS: INSULIN NovoLIN REGULAR SUPPLEMENTAL SCALE SQ SCH ×2 (06:00)
[2017-02-12] MEDS: THIAMINE HCL 100 MG TAB PO SCH (08:20)
[2017-02-12] MEDS: carBAMazepine 200 MG TAB PO SCH ×2 (08:21→21:29)
[2017-02-12] MEDS: ENALAPRIL MALEATE 5 MG TAB PO SCH ×2 (08:21→21:29)
[2017-02-12] MEDS: LANSOPRAZOLE SOLUTAB 30 MG TAB NG SCH (08:21)
[2017-02-12] MEDS: LISINOPRIL 10 MG TAB PO SCH (08:21)
[2017-02-12] MEDS: MULTIVITAMIN TAB PO SCH (08:21)
[2017-02-12] MEDS: ASPIRIN EC 81 MG TABEC PO SCH (08:22)
[2017-02-12] MEDS: DOCUSATE SODIUM 50 MG/SENNA 8.6 MG TAB PO SCH ×2 (08:22→21:29)
[2017-02-12] MEDS: HEPARIN SODIUM - SQ 10,000 UNITS/ML VIAL SQ SCH ×2 (08:23→21:29)
[2017-02-12] MEDS: METOPROLOL TARTRATE 25 MG TAB PO SCH ×2 (08:23→21:29)
[2017-02-12] MEDS: cefTRIAXone INJ 1,000 MG in SODIUM CHLORIDE 0.9% INJ 100 ML IV SCH (08:24)
[2017-02-12] MEDS: CHLORHEXIDINE 0.12% (ORAL KIT) 15 ML CUP MT SCH (08:24)
[2017-02-12] MEDS: ARTIFICIAL TEARS OPTH SOLN 15 ML BTL EACH EYE SCH ×3 (09:00→17:11)
[2017-02-12] MEDS: SODIUM CHLORIDE 0.9% FLUSH 10 ML FLUSH IV FLUSH SCH ×2 (09:00→21:30)
--- NOTE | 2017-02-12 10:18 | HHI.PR ---
Review/Management Diagnosis/Plan: (1) Seizures ICD Codes: R56.9 - Unspecified convulsions Status: Acute Plan: hx of post-traumatic sz's has been in our clinic in the past; poor compliance low alb, correct dil >10 cbz nml, low end should do ok with cbz monotherapy with cbz at higher therapeutic level recs neuro stable increase cbz 400mg bid no driving/climbing heights/swimming alone f/u dil/cbz levels q3-4 days. likely poor compliance d/c planning (2) Respiratory failure, acute ICD Codes: J96.00 - Respiratory failure, acute Status: Acute (3) TBI (traumatic brain injury) ICD Codes: S06.9X0A - TBI (traumatic brain injury) Status: Chronic Subjective Subjective Comments No acute events reported No headache No chest pain No dyspnea Active Medications Current Medications Medications (Trade) Dose Ordered Sig/Casandra Route Start Time Stop Time Status Last Admin (Ecotrin Ec) 162 mg DAILY PO 02/08/17 09:00 02/12/17 08:22 (Vasotec) 5 mg BID PO 02/07/17 21:00 02/12/17 08:21 (Lopressor) 12.5 mg Q12HR PO 02/07/17 21:00 02/12/17 08:23 (NS Flush) 2 ml UNSCH PRN IV FLUSH 02/07/17 19:45 (NS Flush) 2 ml BID IV FLUSH 02/07/17 21:00 02/11/17 21:31 (Tears Naturale Opth Soln) 1 drop TID EACH EYE 02/08/17 09:00 02/10/17 17:11 (Zofran Inj) 4 mg Q6H PRN IV PUSH 02/07/17 19:45 (Albuterol Neb) 2.5 mg Q2HR NEB PRN INH 02/07/17 19:45 Miscellaneous Information 1 Q361D XX 02/07/17 19:45 02/07/17 19:45 (Chlorhexidine 2% Cloth) 3 pack Taper DAILY@04 TOP 02/08/17 04:00 02/04/18 03:59 02/10/17 03:47 (Chlorhexidine 2% Cloth) 3 pack UNSCH PRN TOP 02/07/17 19:45 (Kell-Colace) 1 tab BID PO 02/07/17 21:00 02/12/17 08:22 (Milk Of Magnesia Liq) 30 ml Q12H PRN PO 02/07/17 19:45 (Senokot) 17.2 mg Q12H PRN PO 02/07/17 19:45 (Dulcolax Supp) 10 mg DAILY PRN RECTAL 02/07/17 19:45 (Lactulose Liq) 30 ml DAILY PRN PO 02/07/17 19:45 (Peridex 0.12% Liq) 15 ml BID@08,20 MT 02/07/17 20:00 02/12/17 08:24 (Pill Splitter) 1 ea UNSCH PRN OTHER 02/07/17 20:00 (Prevacid Odt) 30 mg DAILY NG 02/08/17 09:00 02/12/17 08:21 (Tylenol 650 Mg/ 20 ml Liq) 650 mg Q6H PRN PO 02/07/17 20:00 (D50w (Vial) Inj) 50 ml UNSCH PRN IV PUSH 02/07/17 20:00 (Glucagon Inj) 1 mg UNSCH PRN OTHER 02/07/17 20:00 (NovoLIN R SUPPLEMENTAL SCALE) 1 Q6HR SQ 02/08/17 00:00 (Vitamin B1) 100 mg DAILY PO 02/08/17 09:00 02/12/17 08:20 (Theragran) 1 tab DAILY PO 02/08/17 09:00 02/12/17 08:21 Ceftriaxone Sodium 1000 mg/ Sodium Chloride 100 ml @ 200 mls/hr Q24H IV 02/08/17 08:00 02/12/17 08:24 (TEGretol) 300 mg Q12HR PO 02/08/17 10:00 02/12/17 08:21 (Heparin Inj) 5,000 units Q12HR SQ 02/08/17 21:00 02/12/17 08:23 (Apresoline Inj) 10 mg Q4H PRN IV PUSH 02/10/17 05:00 02/10/17 06:00 (Dilantin) 100 mg Q8H PO 02/10/17 11:00 02/12/17 03:06 (Dilantin) 30 mg Q8H PO 02/10/17 11:00 02/12/17 03:05 (Prinivil) 10 mg DAILY PO 02/12/17 09:00 02/12/17 08:21 Allergies Allergies Coded Allergies No Known Allergies (Verified Allergy, Unknown, 02/07/17) Review of Systems Constitutional: Generalized Pain Respiratory: Other Cardiovascular: Other Psychiatric: Other All other ROS: ROS reviewed as documented in chart Exam I&O / VS Vital Signs Date Time Temp Pulse Resp B/P (MAP) Pulse Ox O2 Delivery O2 Flow Rate FiO2 02/12/17 08:38 98.6 73 20 145/92 (109) 94 02/12/17 04:00 98.3 80 18 153/78 (103) 92 02/12/17 00:00 97.7 85 18 137/73 (94) 97 02/11/17 21:00 78 02/11/17 20:53 92 02/11/17 20:00 98.7 76 18 141/78 (99) 96 02/11/17 16:11 98.3 74 20 157/87 (110) 94 02/11/17 14:25 76 02/11/17 12:06 97.7 81 18 172/83 (112) 94 General: Alert and Oriented Eye: EOMI Respiratory: Non-labored respirations, Symmetrical expansion Cardiology: Normal rate Musculoskeletal: Deformity, Other Neurologic: Alert, Oriented, Normal motor, No focal defects, CN II-XII intact Psychiatric: Cooperative, Appropriate mood & affect Objective Micro and Labs Laboratory Tests Test 02/12/17 06:33 Phenytoin (Dilantin) Level 8.7 Carbamazepine (Tegretol) Level 5.6 Date/Time Source Procedure Growth Status 02/09/17 19:03 Blood Peripheral Aerobic Blood Culture - Preliminary NO GROWTH IN 2 DAYS Resulted 02/09/17 19:03 Blood Peripheral Anaerobic Blood Culture - Preliminary NO GROWTH IN 2 DAYS Resulted Problem Qualifiers (1) Respiratory failure, acute: Qualified Codes: J96.00 - Acute respiratory failure, unspecified whether with hypoxia or hypercapnia Mitul Marquez MD Feb 12, 2017 10:18
[2017-02-12] MEDS ORDERED: PHENYTOIN SODIUM 100 MG CAP PO ONE (11:00)
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
--- NOTE | 2017-02-12 20:50 | PD.CARD.PN ---
Subjective Subjective Remarks No CP or SOB, feels fine Objective Medications Current Medications Medications (Trade) Dose Ordered Sig/Casandra Route Start Time Stop Time Status Last Admin (Ecotrin Ec) 162 mg DAILY PO 02/08/17 09:00 02/12/17 08:22 (Vasotec) 5 mg BID PO 02/07/17 21:00 02/12/17 08:21 (Lopressor) 12.5 mg Q12HR PO 02/07/17 21:00 02/12/17 08:23 (NS Flush) 2 ml UNSCH PRN IV FLUSH 02/07/17 19:45 (NS Flush) 2 ml BID IV FLUSH 02/07/17 21:00 02/12/17 09:00 (Tears Naturale Opth Soln) 1 drop TID EACH EYE 02/08/17 09:00 02/10/17 17:11 (Zofran Inj) 4 mg Q6H PRN IV PUSH 02/07/17 19:45 (Albuterol Neb) 2.5 mg Q2HR NEB PRN INH 02/07/17 19:45 Miscellaneous Information 1 Q361D XX 02/07/17 19:45 02/07/17 19:45 (Chlorhexidine 2% Cloth) 3 pack Taper DAILY@04 TOP 02/08/17 04:00 02/04/18 03:59 02/10/17 03:47 (Kell-Colace) 1 tab BID PO 02/07/17 21:00 02/12/17 08:22 (Milk Of Magnesia Liq) 30 ml Q12H PRN PO 02/07/17 19:45 (Senokot) 17.2 mg Q12H PRN PO 02/07/17 19:45 (Dulcolax Supp) 10 mg DAILY PRN RECTAL 02/07/17 19:45 (Lactulose Liq) 30 ml DAILY PRN PO 02/07/17 19:45 (Pill Splitter) 1 ea UNSCH PRN OTHER 02/07/17 20:00 (Prevacid Odt) 30 mg DAILY NG 02/08/17 09:00 02/12/17 08:21 (Tylenol 650 Mg/ 20 ml Liq) 650 mg Q6H PRN PO 02/07/17 20:00 (Vitamin B1) 100 mg DAILY PO 02/08/17 09:00 02/12/17 08:20 (Theragran) 1 tab DAILY PO 02/08/17 09:00 02/12/17 08:21 (Heparin Inj) 5,000 units Q12HR SQ 02/08/17 21:00 02/12/17 08:23 (Apresoline Inj) 10 mg Q4H PRN IV PUSH 02/10/17 05:00 02/10/17 06:00 (Dilantin) 100 mg Q8H PO 02/10/17 11:00 02/12/17 18:16 (Dilantin) 30 mg Q8H PO 02/10/17 11:00 02/12/17 18:16 (Prinivil) 10 mg DAILY PO 02/12/17 09:00 02/12/17 08:21 (TEGretol) 400 mg Q12HR PO 02/12/17 21:00 (Levaquin) 500 mg DAILY PO 02/13/17 09:00 02/14/17 09:01 Vital Signs / I&O Vital Signs Date Time Temp Pulse Resp B/P (MAP) Pulse Ox O2 Delivery O2 Flow Rate FiO2 02/12/17 15:39 98.1 68 20 146/77 (100) 93 02/12/17 12:15 65 02/12/17 11:37 97.8 66 20 124/79 (94) 94 02/12/17 09:47 61 02/12/17 08:38 98.6 73 20 145/92 (109) 94 02/12/17 04:00 98.3 80 18 153/78 (103) 92 02/12/17 00:00 97.7 85 18 137/73 (94) 97 02/11/17 21:00 78 02/11/17 20:53 92 I/O 02/11/17 02/11/17 02/11/17 02/12/17 02/12/17 02/12/17 07:00 15:00 23:00 07:00 15:00 23:00 Intake Total 360 ml 480 ml 1240 ml Output Total 1600 ml 500 ml 1000 ml Balance -1240 ml -20 ml -1000 ml 1240 ml Intake Oral 360 ml 480 ml 1240 ml Output Urine Total 1600 ml 500 ml 1000 ml # Voids 4 # Bowel Movements 0 Physical Exam GENERAL:In NAD SKIN: Warm and dry. HEAD: Normocephalic. EYES: No scleral icterus. No injection or drainage. NECK: Supple, trachea midline. No JVD or lymphadenopathy. CARDIOVASCULAR: Regular rate and rhythm without murmurs, gallops, or rubs. RESPIRATORY: Breath sounds equal bilaterally. No accessory muscle use. GASTROINTESTINAL: Abdomen soft, non-tender, nondistended. MUSCULOSKELETAL: No cyanosis, or edema. Laboratory Laboratory Tests Test 02/12/17 06:33 Phenytoin (Dilantin) Level 8.7 MCG/ML Carbamazepine (Tegretol) Level 5.6 MCG/ML Assessment and Plan Problem List: (1) Status epilepticus ICD Codes: G40.301 - Status epilepticus Status: Acute (2) Ischemic cardiomyopathy ICD Codes: I25.5 - Ischemic cardiomyopathy Status: Acute (3) CAD (coronary artery disease) ICD Codes: I25.10 - CAD (coronary artery disease) Status: Acute (4) Respiratory failure, acute ICD Codes: J96.00 - Respiratory failure, acute Status: Acute (5) Marijuana use ICD Codes: F12.10 - Marijuana use Status: Acute (6) Tobacco abuse ICD Codes: Z72.0 - Tobacco use Status: Chronic (7) Alcohol abuse ICD Codes: F10.10 - Alcohol abuse Status: Acute Assessment and Plan Remains stable from cardiac standpoint. No angina or CHF exacerbation. Continue current program including tx for CHF. Recommend medical management including aggressive risk factor modification. Counseled again to quit smoking and taking his meds as prescribed. Increase activity. F/u w his PCP after discharge. Problem Qualifiers (1) Respiratory failure, acute: Qualified Codes: J96.00 - Acute respiratory failure, unspecified whether with hypoxia or hypercapnia Warren Frazier MD Feb 12, 2017 20:50
[2017-02-13] VITALS (11 sets, daily range): BP systolic 128–151; BP diastolic 75–80; PULSE 59–75; RESP 17–20; TEMP 97.6–98.8; O2SAT 92–95
[2017-02-13] MEDS: PHENYTOIN SODIUM 100 MG CAP PO SCH ×3 (03:28→21:08)
[2017-02-13] MEDS: PHENYTOIN SODIUM 30 MG CAP PO SCH (03:29)
[2017-02-13] MEDS: CHLORHEXIDINE GLUCONATE 2 % 1 PACK (2 CLOTHS) TOP SCH (04:00)
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
[2017-02-13] MEDS: SODIUM CHLORIDE 0.9% FLUSH 10 ML FLUSH IV FLUSH SCH ×2 (09:00→21:00)
[2017-02-13] MEDS: ARTIFICIAL TEARS OPTH SOLN 15 ML BTL EACH EYE SCH ×3 (09:00→16:58)
[2017-02-13] MEDS ORDERED: LEVOFLOXACIN 500 MG TAB PO SCH (09:00)
[2017-02-13] MEDS: DOCUSATE SODIUM 50 MG/SENNA 8.6 MG TAB PO SCH ×2 (09:00→21:00)
[2017-02-13] MEDS: MULTIVITAMIN TAB PO SCH (09:13)
[2017-02-13] MEDS: THIAMINE HCL 100 MG TAB PO SCH (09:13)
[2017-02-13] MEDS: LANSOPRAZOLE SOLUTAB 30 MG TAB NG SCH (09:13)
[2017-02-13] MEDS: carBAMazepine 200 MG TAB PO SCH ×2 (09:14→21:09)
[2017-02-13] MEDS: LISINOPRIL 10 MG TAB PO SCH (09:14)
[2017-02-13] MEDS: METOPROLOL TARTRATE 25 MG TAB PO SCH ×2 (09:14→21:07)
[2017-02-13] MEDS: ENALAPRIL MALEATE 5 MG TAB PO SCH ×2 (09:14→21:07)
[2017-02-13] MEDS: ASPIRIN EC 81 MG TABEC PO SCH (09:15)
[2017-02-13] MEDS: HEPARIN SODIUM - SQ 10,000 UNITS/ML VIAL SQ SCH ×2 (09:16→21:08)
--- NOTE | 2017-02-13 11:18 | HHI.PR ---
Subjective Remarks Follow up seizure. Patient denies pain at this time. No chest pain, dyspnea. Objective Vitals Vital Signs Date Time Temp Pulse Resp B/P (MAP) Pulse Ox O2 Delivery O2 Flow Rate FiO2 02/13/17 08:17 98.6 67 20 130/75 (93) 92 02/13/17 08:05 69 02/13/17 05:35 98.8 64 18 148/79 (102) 95 02/13/17 00:49 98.2 62 18 136/75 (95) 94 02/13/17 00:30 64 02/12/17 20:55 98.6 64 18 142/79 (100) 94 02/12/17 20:30 75 02/12/17 15:39 98.1 68 20 146/77 (100) 93 02/12/17 12:15 65 02/12/17 11:37 97.8 66 20 124/79 (94) 94 I/O 02/12/17 02/12/17 02/12/17 02/13/17 02/13/17 02/13/17 07:00 15:00 23:00 07:00 15:00 23:00 Intake Total 1240 ml Output Total 1000 ml Balance -1000 ml 1240 ml Intake Oral 1240 ml Output Urine Total 1000 ml # Voids 4 # Bowel Movements 0 Result Diagram: 02/11/1762102/11/17621 Imaging Last Impressions Brain MRI 02/09/17 0000 Signed Impressions: Service Date/Time: Thursday, February 09, 2017 10:42 - CONCLUSION: 1. 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 2. No acute intracranial abnormality. Schuyler Campos Jr., MD Chest X-Ray 02/08/17 0000 Signed Impressions: Service Date/Time: January 03:13 - CONCLUSION: ET tube and NG tube are well placed. The lungs appear clear. Jeffrey Veloz MD Neck CTA 02/07/17 0000 Signed Impressions: Service Date/Time: January 00:26 - CONCLUSION: Mild plaque in the carotid bulb and proximal internal carotid arteries without significant stenosis. Jeffrey Veloz MD Head CTA 02/07/17 0000 Signed Impressions: Service Date/Time: January 00:26 - CONCLUSION: Negative CTA of the head. Jeffrey Veloz MD Head CT 02/07/17 0000 Signed Impressions: Service Date/Time: Tuesday, February 07, 2017 17:32 - CONCLUSION: 1. Negative for acute process. 2. Left anterior temporal region 3. Negative for parenchymal hemorrhage Miguel Brown MD FACR Objective Remarks General: No acute distress. Heart: Regular rate and rhythm. No murmur. Lungs: Clear to auscultation bilaterally. No wheezes, rales, or rhonchi. Breathing is nonlabored. Abdomen: Soft, nontender, nondistended. Extremities: No lower extremity edema. Psych: Alert and oriented. Procedures None Urinary Catheter: No Vascular Central Line Catheter: No A/P Problem List: (1) Hypertension ICD Code: I10 - Essential (primary) hypertension (2) Hyperkalemia ICD Code: E87.5 - Hyperkalemia (3) Status epilepticus ICD Code: G40.301 - Status epilepticus Status: Acute (4) Respiratory failure, acute ICD Code: J96.00 - Respiratory failure, acute Status: Acute (5) Leukocytosis ICD Code: D72.829 - Leukocytosis Status: Acute (6) Marijuana use ICD Code: F12.10 - Marijuana use Status: Acute Assessment and Plan 1. Status epilepticus, seizure disorder: Appreciate neurology recommendations. Continue Tegretol, Dilantin. 2. 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 3. UTI: Continue antibiotics. 4. CAD: Asymptomatic. Continue aspirin, lopressor, lisinopril. 5. Chronic systolic CHF: Echo shows EF 20-25%. Not in exacerbation. 6. Acute hypoxemic respiratory failure: Resolved. Extubated 02/09. Oxygen as needed. Bronchodilators as needed. 7. Tobacco abuse: Counselled to quit smoking. 8. GI prophylaxis: Lansoprazole. 9. DVT prophylaxis: SCDs, heparin. Discharge Planning Plan for discharge home when cleared by neurology. Problem Qualifiers (1) Hypertension: Qualified Codes: I10 - Essential (primary) hypertension (2) Respiratory failure, acute: Qualified Codes: J96.00 - Acute respiratory failure, unspecified whether with hypoxia or hypercapnia (3) Leukocytosis: Qualified Codes: D72.828 - Other elevated white blood cell count Sam Ovalles MD Feb 13, 2017 11:18
--- NOTE | 2017-02-13 16:58 | PD.CARD.PN ---
Subjective Subjective Remarks No CP or SOB, feels much better Objective Medications Current Medications Medications (Trade) Dose Ordered Sig/Casandra Route Start Time Stop Time Status Last Admin (Ecotrin Ec) 162 mg DAILY PO 02/08/17 09:00 02/13/17 09:15 (Vasotec) 5 mg BID PO 02/07/17 21:00 02/13/17 09:14 (Lopressor) 12.5 mg Q12HR PO 02/07/17 21:00 02/13/17 09:14 (NS Flush) 2 ml UNSCH PRN IV FLUSH 02/07/17 19:45 (NS Flush) 2 ml BID IV FLUSH 02/07/17 21:00 02/13/17 09:00 (Tears Naturale Opth Soln) 1 drop TID EACH EYE 02/08/17 09:00 02/13/17 11:46 (Zofran Inj) 4 mg Q6H PRN IV PUSH 02/07/17 19:45 (Albuterol Neb) 2.5 mg Q2HR NEB PRN INH 02/07/17 19:45 Miscellaneous Information 1 Q361D XX 02/07/17 19:45 02/07/17 19:45 (Chlorhexidine 2% Cloth) Taper DAILY@04 TOP 02/08/17 04:00 02/04/18 03:59 02/10/17 03:47 (Kell-Colace) 1 tab BID PO 02/07/17 21:00 02/12/17 21:29 (Milk Of Magnesia Liq) 30 ml Q12H PRN PO 02/07/17 19:45 (Senokot) 17.2 mg Q12H PRN PO 02/07/17 19:45 (Dulcolax Supp) 10 mg DAILY PRN RECTAL 02/07/17 19:45 (Lactulose Liq) 30 ml DAILY PRN PO 02/07/17 19:45 (Pill Splitter) 1 ea UNSCH PRN OTHER 02/07/17 20:00 (Prevacid Odt) 30 mg DAILY NG 02/08/17 09:00 02/13/17 09:13 (Tylenol 650 Mg/ 20 ml Liq) 650 mg Q6H PRN PO 02/07/17 20:00 (Vitamin B1) 100 mg DAILY PO 02/08/17 09:00 02/13/17 09:13 (Theragran) 1 tab DAILY PO 02/08/17 09:00 02/13/17 09:13 (Heparin Inj) 5,000 units Q12HR SQ 02/08/17 21:00 02/13/17 09:16 (Apresoline Inj) 10 mg Q4H PRN IV PUSH 02/10/17 05:00 02/10/17 06:00 (Prinivil) 10 mg DAILY PO 02/12/17 09:00 02/13/17 09:14 (TEGretol) 400 mg Q12HR PO 02/12/17 21:00 02/13/17 09:14 (Dilantin) 100 mg BID PO 02/13/17 09:00 02/15/17 08:59 02/13/17 09:15 (Bactrim Ds 800-160 Mg) 1 tab Q12HR PO 02/13/17 21:00 02/15/17 20:59 Vital Signs / I&O Vital Signs Date Time Temp Pulse Resp B/P (MAP) Pulse Ox O2 Delivery O2 Flow Rate FiO2 02/13/17 15:36 98.3 67 20 151/75 (100) 93 02/13/17 12:11 63 02/13/17 11:22 98.3 64 20 128/75 (92) 93 02/13/17 08:17 98.6 67 20 130/75 (93) 92 02/13/17 08:05 69 02/13/17 05:35 98.8 64 18 148/79 (102) 95 02/13/17 00:49 98.2 62 18 136/75 (95) 94 02/13/17 00:30 64 02/12/17 20:55 98.6 64 18 142/79 (100) 94 02/12/17 20:30 75 I/O 02/12/17 02/12/17 02/12/17 02/13/17 02/13/17 02/13/17 07:00 15:00 23:00 07:00 15:00 23:00 Intake Total 1240 ml 940 ml Output Total 1000 ml Balance -1000 ml 1240 ml 940 ml Intake Oral 1240 ml 940 ml Output Urine Total 1000 ml # Voids 4 4 # Bowel Movements 0 0 Physical Exam GENERAL:In NAD SKIN: Warm and dry. HEAD: Normocephalic. EYES: No scleral icterus. No injection or drainage. NECK: Supple, trachea midline. No JVD or lymphadenopathy. CARDIOVASCULAR: Regular rate and rhythm without murmurs, gallops, or rubs. RESPIRATORY: Breath sounds equal bilaterally. No accessory muscle use. GASTROINTESTINAL: Abdomen soft, non-tender, nondistended. MUSCULOSKELETAL: No cyanosis, or edema. Laboratory Laboratory Tests Test 02/13/17 04:01 Phenytoin (Dilantin) Level 12.8 MCG/ML Carbamazepine (Tegretol) Level 6.4 MCG/ML Assessment and Plan Problem List: (1) Status epilepticus ICD Codes: G40.301 - Status epilepticus Status: Acute (2) Ischemic cardiomyopathy ICD Codes: I25.5 - Ischemic cardiomyopathy Status: Acute (3) CAD (coronary artery disease) ICD Codes: I25.10 - CAD (coronary artery disease) Status: Acute (4) Respiratory failure, acute ICD Codes: J96.00 - Respiratory failure, acute Status: Acute (5) Marijuana use ICD Codes: F12.10 - Marijuana use Status: Acute (6) Tobacco abuse ICD Codes: Z72.0 - Tobacco use Status: Chronic (7) Alcohol abuse ICD Codes: F10.10 - Alcohol abuse Status: Acute Assessment and Plan No new cardiac issues. No angina or CHF exacerbation. Continue current program including therapy for CHF. Recommend medical management including aggressive risk factor modification. Counseled again to quit smoking and taking his meds as prescribed, he understands the importance of this. Increase activity. F/u w his PCP after discharge. Problem Qualifiers (1) Respiratory failure, acute: Qualified Codes: J96.00 - Acute respiratory failure, unspecified whether with hypoxia or hypercapnia Warren Frazier MD Feb 13, 2017 16:58
[2017-02-13] MEDS: SULFAMETHOXAZOLE-TRIMETHOPRIM DS 800-160 MG TAB PO SCH (21:07)
[2017-02-14] VITALS (8 sets, daily range): BP systolic 118–142; BP diastolic 64–85; PULSE 61–73; RESP 16–18; TEMP 97–98.7; O2SAT 93–95
[2017-02-14] MEDS: CHLORHEXIDINE GLUCONATE 2 % 1 PACK (2 CLOTHS) TOP SCH (04:15)
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
[2017-02-14] MEDS: ASPIRIN EC 81 MG TABEC PO SCH (08:52)
[2017-02-14] MEDS: THIAMINE HCL 100 MG TAB PO SCH (08:52)
[2017-02-14] MEDS: DOCUSATE SODIUM 50 MG/SENNA 8.6 MG TAB PO SCH (08:53)
[2017-02-14] MEDS: MULTIVITAMIN TAB PO SCH (08:53)
[2017-02-14] MEDS: ENALAPRIL MALEATE 5 MG TAB PO SCH (08:53)
[2017-02-14] MEDS: carBAMazepine 200 MG TAB PO SCH (08:53)
[2017-02-14] MEDS: LISINOPRIL 10 MG TAB PO SCH (08:53)
[2017-02-14] MEDS: METOPROLOL TARTRATE 25 MG TAB PO SCH (08:53)
[2017-02-14] MEDS: PHENYTOIN SODIUM 100 MG CAP PO SCH (08:53)
[2017-02-14] MEDS: LANSOPRAZOLE SOLUTAB 30 MG TAB NG SCH (08:53)
[2017-02-14] MEDS: SODIUM CHLORIDE 0.9% FLUSH 10 ML FLUSH IV FLUSH SCH (08:53)
[2017-02-14] MEDS: SULFAMETHOXAZOLE-TRIMETHOPRIM DS 800-160 MG TAB PO SCH (08:53)
[2017-02-14] MEDS: ARTIFICIAL TEARS OPTH SOLN 15 ML BTL EACH EYE SCH ×3 (08:53→16:41)
[2017-02-14] MEDS: HEPARIN SODIUM - SQ 10,000 UNITS/ML VIAL SQ SCH (08:54)
[2017-02-14 10:11] LABS: AUTOMATED NEUTROPHIL # 5.2 TH/MM3 (1.8-7.7); BASOPHIL # 0.1 TH/MM3 (0-0.2); BASOPHIL % 1.2 % (0.0-2.0); EOSINOPHIL # 0.7 TH/MM3 (0-0.4); EOSINOPHIL % 7.9 % (0.0-4.0); HEMATOCRIT 44.7 % (39.0-51.0); HEMO FLAGS DIFF FINAL; LYMPH % 22.7 % (9.0-44.0); MEAN CORPUSCULAR HEMOGLOBIN 30.9 PG (27.0-34.0); MEAN CORPUSCULAR HGB CONC 33.2 % (32.0-36.0); MONO % 10.3 % (0.0-8.0); NEUT % 57.9 % (16.0-70.0); PLATELET COUNT 283 TH/MM3 (150-450); RED BLOOD COUNT 4.81 MIL/MM3 (4.50-5.90); RED CELL DISTRIBUTION WIDTH 14.4 % (11.6-17.2)
--- NOTE | 2017-02-14 10:57 | HHI.PR ---
Subjective Remarks Follow up seizure. Patient has no specific complaints at this time. No further seizure activity. Denies chest pain, dyspnea. Objective Vitals Vital Signs Date Time Temp Pulse Resp B/P (MAP) Pulse Ox O2 Delivery O2 Flow Rate FiO2 02/14/17 08:35 97.0 73 16 142/85 (104) 94 02/14/17 05:00 98.0 61 17 128/66 (86) 95 02/14/17 00:49 98.4 62 17 119/64 (82) 94 02/13/17 21:33 75 02/13/17 20:39 97.6 67 17 141/80 (100) 95 02/13/17 16:11 59 02/13/17 15:36 98.3 67 20 151/75 (100) 93 02/13/17 12:11 63 02/13/17 11:22 98.3 64 20 128/75 (92) 93 I/O 02/13/17 02/13/17 02/13/17 02/14/17 02/14/17 02/14/17 07:00 15:00 23:00 07:00 15:00 23:00 Intake Total 940 ml 480 ml Output Total 250 ml Balance 940 ml 230 ml Intake Oral 940 ml 480 ml Output Urine Total 250 ml # Voids 4 5 # Bowel Movements 1 Result Diagram: 02/14/17 0915 02/11/17 0622 Imaging Last Impressions Brain MRI 02/09/17 0000 Signed Impressions: Service Date/Time: Thursday, February 09, 2017 10:42 - CONCLUSION: 1. 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 2. No acute intracranial abnormality. Schuyler Campos Jr., MD Chest X-Ray 02/08/17 0000 Signed Impressions: Service Date/Time: January 03:13 - CONCLUSION: ET tube and NG tube are well placed. The lungs appear clear. Jeffrey Veloz MD Neck CTA 02/07/17 0000 Signed Impressions: Service Date/Time: January 00:26 - CONCLUSION: Mild plaque in the carotid bulb and proximal internal carotid arteries without significant stenosis. Jeffrey Veloz MD Head CTA 02/07/17 0000 Signed Impressions: Service Date/Time: January 00:26 - CONCLUSION: Negative CTA of the head. Jeffrey Veloz MD Head CT 02/07/17 0000 Signed Impressions: Service Date/Time: Tuesday, February 07, 2017 17:32 - CONCLUSION: 1. Negative for acute process. 2. Left anterior temporal region 3. Negative for parenchymal hemorrhage Miguel Brown MD FACR Objective Remarks General: No acute distress. Heart: Regular rate and rhythm. No murmur. Lungs: Clear to auscultation bilaterally. No wheezes, rales, or rhonchi. Breathing is nonlabored. Abdomen: Soft, nontender, nondistended. Extremities: No lower extremity edema. Psych: Alert and oriented. Procedures None Urinary Catheter: No Vascular Central Line Catheter: No A/P Problem List: (1) Hypertension ICD Code: I10 - Essential (primary) hypertension (2) Hyperkalemia ICD Code: E87.5 - Hyperkalemia (3) Status epilepticus ICD Code: G40.301 - Status epilepticus Status: Acute (4) Respiratory failure, acute ICD Code: J96.00 - Respiratory failure, acute Status: Acute (5) Leukocytosis ICD Code: D72.829 - Leukocytosis Status: Acute (6) Marijuana use ICD Code: F12.10 - Marijuana use Status: Acute Assessment and Plan 1. Status epilepticus, seizure disorder: Appreciate neurology recommendations. Continue Tegretol, Dilantin. Per neurology, recheck serum levels Sunday. 2. 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 3. UTI: Continue antibiotics. 4. CAD: Asymptomatic. Continue aspirin, lopressor, lisinopril. 5. Chronic systolic CHF: Echo shows EF 20-25%. Not in exacerbation. 6. Acute hypoxemic respiratory failure: Resolved. Extubated 02/09. Oxygen as needed. Bronchodilators as needed. 7. Tobacco abuse: Counselled to quit smoking. 8. GI prophylaxis: Lansoprazole. 9. DVT prophylaxis: SCDs, heparin. Discharge Planning Plan for discharge home if outpatient follow-up can be arranged. Problem Qualifiers (1) Hypertension: Qualified Codes: I10 - Essential (primary) hypertension (2) Respiratory failure, acute: Qualified Codes: J96.00 - Acute respiratory failure, unspecified whether with hypoxia or hypercapnia (3) Leukocytosis: Qualified Codes: D72.828 - Other elevated white blood cell count Stoverink,Sam D. MD Feb 14, 2017 10:57
[2017-02-14] MEDS ORDERED: ASPI81TA23 PO (11:04)
[2017-02-14] MEDS ORDERED: DILA100C PO (11:04)
[2017-02-14] MEDS ORDERED: LISI10TA3 PO (11:04)
[2017-02-14] MEDS ORDERED: METO25TA3 PO (11:04)
[2017-02-14] MEDS ORDERED: SULF1TAB23 PO (11:04)
[2017-02-14] MEDS ORDERED: CARB200T PO (11:04)
--- NOTE | 2017-02-14 11:05 | HHI.DCPOC ---
Discharge Care Plan Diagnosis: (1) UTI (urinary tract infection) (2) Coronary artery disease (3) Chronic systolic CHF (congestive heart failure) (4) Acute hypoxemic respiratory failure (5) Status epilepticus (6) Seizures Goals to Promote Your Health * To prevent worsening of your condition and complications * To maintain your health at the optimal level Directions to Meet Your Goals Take your medications as prescribed Follow your dietary instruction Follow activity as directed Keep your appointments as scheduled Take your immunizations and boosters as scheduled If your symptoms worsen call your PCP, if no PCP go to Urgent Care Center or Emergency Room Smoking is Dangerous to Your Health. Avoid second hand smoke Call the 24-hour hour crisis hotline for domestic abuse at Sam Ovalles MD Feb 14, 2017 11:05
[2017-02-14] MEDS ORDERED: PRAV20TA2 PO (12:56)
--- NOTE | 2017-02-14 14:37 | PD.CARD.PN ---
Subjective Subjective Remarks No CP or SOB, feels fine, wants to find a physician that would prescribe him marijuana Objective Medications Current Medications Medications (Trade) Dose Ordered Sig/Casandra Route Start Time Stop Time Status Last Admin (Ecotrin Ec) 162 mg DAILY PO 02/08/17 09:00 02/14/17 08:52 (Vasotec) 5 mg BID PO 02/07/17 21:00 02/14/17 08:53 (Lopressor) 12.5 mg Q12HR PO 02/07/17 21:00 02/14/17 08:53 (NS Flush) 2 ml UNSCH PRN IV FLUSH 02/07/17 19:45 (NS Flush) 2 ml BID IV FLUSH 02/07/17 21:00 02/14/17 08:53 (Tears Naturale Opth Soln) 1 drop TID EACH EYE 02/08/17 09:00 02/14/17 11:16 (Zofran Inj) 4 mg Q6H PRN IV PUSH 02/07/17 19:45 (Albuterol Neb) 2.5 mg Q2HR NEB PRN INH 02/07/17 19:45 Miscellaneous Information 1 Q361D XX 02/07/17 19:45 02/07/17 19:45 (Chlorhexidine 2% Cloth) Taper DAILY@04 TOP 02/08/17 04:00 02/04/18 03:59 02/10/17 03:47 (Kell-Colace) 1 tab BID PO 02/07/17 21:00 02/12/17 21:29 (Milk Of Magnesia Liq) 30 ml Q12H PRN PO 02/07/17 19:45 (Senokot) 17.2 mg Q12H PRN PO 02/07/17 19:45 (Dulcolax Supp) 10 mg DAILY PRN RECTAL 02/07/17 19:45 (Lactulose Liq) 30 ml DAILY PRN PO 02/07/17 19:45 (Pill Splitter) 1 ea UNSCH PRN OTHER 02/07/17 20:00 (Prevacid Odt) 30 mg DAILY NG 02/08/17 09:00 02/14/17 08:53 (Tylenol 650 Mg/ 20 ml Liq) 650 mg Q6H PRN PO 02/07/17 20:00 (Vitamin B1) 100 mg DAILY PO 02/08/17 09:00 02/14/17 08:52 (Theragran) 1 tab DAILY PO 02/08/17 09:00 02/14/17 08:53 (Heparin Inj) 5,000 units Q12HR SQ 02/08/17 21:00 02/14/17 08:54 (Apresoline Inj) 10 mg Q4H PRN IV PUSH 02/10/17 05:00 02/10/17 06:00 (Prinivil) 10 mg DAILY PO 02/12/17 09:00 02/14/17 08:53 (TEGretol) 400 mg Q12HR PO 02/12/17 21:00 02/14/17 08:53 (Dilantin) 100 mg BID PO 02/13/17 09:00 02/15/17 08:59 02/14/17 08:53 (Bactrim Ds 800-160 Mg) 1 tab Q12HR PO 02/13/17 21:00 02/15/17 20:59 02/14/17 08:53 Vital Signs / I&O Vital Signs Date Time Temp Pulse Resp B/P (MAP) Pulse Ox O2 Delivery O2 Flow Rate FiO2 02/14/17 12:10 98.7 63 18 118/75 (89) 93 02/14/17 08:35 97.0 73 16 142/85 (104) 94 02/14/17 08:00 61 02/14/17 05:00 98.0 61 17 128/66 (86) 95 02/14/17 00:49 98.4 62 17 119/64 (82) 94 02/13/17 21:33 75 02/13/17 20:39 97.6 67 17 141/80 (100) 95 02/13/17 16:11 59 02/13/17 15:36 98.3 67 20 151/75 (100) 93 I/O 02/13/17 02/13/17 02/13/17 02/14/17 02/14/17 02/14/17 07:00 15:00 23:00 07:00 15:00 23:00 Intake Total 940 ml 480 ml Output Total 250 ml Balance 940 ml 230 ml Intake Oral 940 ml 480 ml Output Urine Total 250 ml # Voids 4 5 # Bowel Movements 1 Physical Exam GENERAL:In NAD SKIN: Warm and dry. HEAD: Normocephalic. EYES: No scleral icterus. No injection or drainage. NECK: Supple, trachea midline. No JVD or lymphadenopathy. CARDIOVASCULAR: Regular rate and rhythm without murmurs, gallops, or rubs. RESPIRATORY: Breath sounds equal bilaterally. No accessory muscle use. GASTROINTESTINAL: Abdomen soft, non-tender, nondistended. MUSCULOSKELETAL: No cyanosis, or edema. Laboratory Laboratory Tests Test 02/14/17 09:15 White Blood Count 9.0 TH/MM3 Red Blood Count 4.81 MIL/MM3 Hemoglobin 14.9 GM/DL Hematocrit 44.7 % Mean Corpuscular Volume 93.0 FL Mean Corpuscular Hemoglobin 30.9 PG Mean Corpuscular Hemoglobin Concent 33.2 % Red Cell Distribution Width 14.4 % Platelet Count 283 TH/MM3 Mean Platelet Volume 7.5 FL Neutrophils (%) (Auto) 57.9 % Lymphocytes (%) (Auto) 22.7 % Monocytes (%) (Auto) 10.3 % Eosinophils (%) (Auto) 7.9 % Basophils (%) (Auto) 1.2 % Neutrophils # (Auto) 5.2 TH/MM3 Lymphocytes # (Auto) 2.0 TH/MM3 Monocytes # (Auto) 0.9 TH/MM3 Eosinophils # (Auto) 0.7 TH/MM3 Basophils # (Auto) 0.1 TH/MM3 CBC Comment DIFF FINAL Differential Comment Carbamazepine (Tegretol) Level 4.6 MCG/ML Assessment and Plan Problem List: (1) Status epilepticus ICD Codes: G40.301 - Status epilepticus Status: Acute (2) Ischemic cardiomyopathy ICD Codes: I25.5 - Ischemic cardiomyopathy Status: Acute (3) CAD (coronary artery disease) ICD Codes: I25.10 - CAD (coronary artery disease) Status: Acute (4) Respiratory failure, acute ICD Codes: J96.00 - Respiratory failure, acute Status: Acute (5) Marijuana use ICD Codes: F12.10 - Marijuana use Status: Acute (6) Tobacco abuse ICD Codes: Z72.0 - Tobacco use Status: Chronic (7) Alcohol abuse ICD Codes: F10.10 - Alcohol abuse Status: Acute Assessment and Plan Remains stable from cardiac standpoint. No angina or CHF exacerbation. Continue current program including therapy for CHF. Continue aggressive risk factor modification. Counseled again to quit smoking and taking his meds as prescribed , he understands the importance of this. DC home as planned. F/u w his PCP after discharge. Problem Qualifiers (1) Respiratory failure, acute: Qualified Codes: J96.00 - Acute respiratory failure, unspecified whether with hypoxia or hypercapnia Warren Frazier MD Feb 14, 2017 14:37
--- NOTE | 2017-02-14 14:55 | HHI.DS ---
Discharge Summary Admission Date Feb 07, 2017 at 18:48 Discharge Date: Feb 14, 2017 Admitting Diagnosis status epilepticus (1) Hypertension ICD Code: I10 - Essential (primary) hypertension Diagnosis: Principal (2) Hyperkalemia ICD Code: E87.5 - Hyperkalemia Diagnosis: Principal (3) Status epilepticus ICD Code: G40.301 - Status epilepticus Diagnosis: Principal Status: Acute (4) Respiratory failure, acute ICD Code: J96.00 - Respiratory failure, acute Diagnosis: Principal Status: Acute (5) Leukocytosis ICD Code: D72.829 - Leukocytosis Diagnosis: Principal Status: Acute (6) Marijuana use ICD Code: F12.10 - Marijuana use Diagnosis: Secondary Status: Acute Procedures None Brief History - From Admission 56-year-old male. Date of admission 02/07/2017. Past medical history includes seizure disorder, traumatic brain injury, coronary disease, chronic systolic heart failure ejection fraction 25% and hypertension. History of EtOH and THC use Who presents to the emergency department having had onset of a seizure and right sided weakness 30 minutes prior to arrival. The emergency department he had evidence of right sided hemiparesis and intermittent intractable seizures. Patient was intubated receiving 20 mg etomidate and 100 mg succinylcholine. Patient was taken to CT scan brain revealed large area of old encephalomalacia. I reviewed the patient's past medical records and he has been here in the past with similar presentation diagnosed with status epilepticus. He also has had a traumatic left-sided subdural hematoma and subarachnoid hemorrhage in the past. Patient was given 2 mg of lorazepam and started on propofol. He was loaded with fosphenytoin 1 g. Patient will be admitted to the intensive care unit for further management. It is unlikely that this is an ischemic stroke. 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 Dr. Wiley was notified for stroke alert. MRI brain performed tonight. CBC/BMP: 02/14/17 0915 02/11/17 0622 Significant Findings Laboratory Tests Test 02/12/17 06:33 02/13/17 04:01 02/14/17 09:15 Phenytoin (Dilantin) Level 8.7 MCG/ML (10.0-20.0) Monocytes (%) (Auto) 10.3 % (0.0-8.0) Eosinophils (%) (Auto) 7.9 % (0.0-4.0) Eosinophils # (Auto) 0.7 TH/MM3 (0-0.4) Imaging Last Impressions Brain MRI 02/09/17 0000 Signed Impressions: Service Date/Time: Thursday, February 09, 2017 10:42 - CONCLUSION: 1. 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 2. No acute intracranial abnormality. Schuyler Campos Jr., MD Chest X-Ray 02/08/17 0000 Signed Impressions: Service Date/Time: January 03:13 - CONCLUSION: ET tube and NG tube are well placed. The lungs appear clear. Jeffrey Veloz MD Neck CTA 02/07/17 0000 Signed Impressions: Service Date/Time: January 00:26 - CONCLUSION: Mild plaque in the carotid bulb and proximal internal carotid arteries without significant stenosis. Jeffrey Veloz MD Head CTA 02/07/17 0000 Signed Impressions: Service Date/Time: January 00:26 - CONCLUSION: Negative CTA of the head. Jeffrey Veloz MD Head CT 02/07/17 0000 Signed Impressions: Service Date/Time: Tuesday, February 07, 2017 17:32 - CONCLUSION: 1. Negative for acute process. 2. Left anterior temporal region 3. Negative for parenchymal hemorrhage Miguel Brown MD FACR PE at Discharge General: No acute distress. Heart: Regular rate and rhythm. No murmur. Lungs: Clear to auscultation bilaterally. No wheezes, rales, or rhonchi. Breathing is nonlabored. Abdomen: Soft, nontender, nondistended. Extremities: No lower extremity edema. Psych: Alert and oriented. Hospital Course The patient was admitted to the critical care service for management of status epilepticus. He was sedated with the per Van and intubated. Neurology was consulted. Tegretol was increased. He was initially placed on Cerebyx, and was then transitioned to Dilantin. He was extubated on 02/09/17 and weaned off supplemental oxygen. Neurology adjusted his antiepileptic medications. He was treated with antibiotics for UTI. He was cleared for discharge by neurology with instructions to follow-up with a PCP as outpatient. Case management was consulted to assist with follow-up. The patient reported that his primary care physician is Dr. Banuelos at the [facility]. He was given orders for follow-up lab work to be done as outpatient and for the results to go to his PCP. Pt Condition on Discharge: Stable Discharge Disposition: Discharge Home Discharge Time: > 30 minutes Discharge Instructions DIET: Follow Instructions for: Heart Healthy Diet Activities you can perform: Regular-No Restrictions Activities to Avoid: Bathing, Driving Follow up Referrals: PCP Follow-up - 1 Week PCP Follow-up New Orders: PHENYTOIN (DILANTIN) - 02/20/17 TEGRETOL - 02/20/17 New Medications: Pravastatin (Pravastatin) 20 Mg Tab 20 MG PO DAILY for Cholesterol Management, #30 TAB 0 Refills Carbamazepine (Carbamazepine) 200 Mg Tab 400 MG PO Q12HR for Seizure Control, #60 TAB 0 Refills Lisinopril (Lisinopril) 10 Mg Tab 10 MG PO DAILY for Blood Pressure Management, #30 TAB 0 Refills Phenytoin Extended (Dilantin) 100 Mg Cap 100 MG PO BID for Seizure Control, #60 CAP 0 Refills Sulfamethoxazole-Trimethoprim (Sulfamethoxazole-Trimethoprim) 800-160 Mg Tab 1 TAB PO Q12HR for Infection, #4 TAB 0 Refills Continued Medications: Aspirin DR (Aspirin EC) 81 Mg Tabdr 162 MG PO DAILY for Prevent Blood Clot, #30 TAB 0 Refills (This prescription has been renewed) Metoprolol Tartrate (Metoprolol Tartrate) 25 Mg Tab 12.5 MG PO Q12HR for Regulate Heart Beat, #60 TAB 0 Refills (This prescription has been renewed) Nitroglycerin SL (Nitrostat SL) 0.4 Mg Subl 0.4 MG SL Q5M PRN for X 3 doses for chest pain, #30 MG Discontinued Medications: Carbamazepine (Carbamazepine) 200 Mg Tab 200 MG PO DAILY, #60 TAB 0 Refills Carbamazepine ER 12 HR (Carbamazepine ER 12 HR) 100 Mg Cap 100 MG PO Q12HR, #2 CAP 0 Refills Carbamazepine (Tegretol) 200 Mg Tab 200 MG PO ONCE, #30 TAB 0 Refills Enalapril (Enalapril) 5 Mg Tab 5 MG PO BID for Prevent Heart Failure, #60 TAB Sam Ovalles MD Feb 14, 2017 14:55
== END 2017-02-14 17:00 | disposition home or self-care (01) | DRG 100 ==
LOC: NEPC 17:07 → NEDA 18:48 → HIMN 21:00 → N05A 02-11 03:29
PROVIDERS: ADMIT Family Medicine; ATTEND Family Medicine
PROC: 5A1945Z Respiratory Ventilation, 24-96 Consecutive Hours (ICD-10-PCS; principal; 2017-02-07)
PROC: 0BH17EZ Insertion of Endotracheal Airway into Trachea, Via Natural or Artificial Opening (ICD-10-PCS; 2017-02-07)
DX: G40.911 Epilepsy, unspecified, intractable, with status epilepticus (principal); J96.01 Acute respiratory failure with hypoxia; I50.22 Chronic systolic (congestive) heart failure; G81.91 Hemiplegia, unspecified affecting right dominant side; N39.0 Urinary tract infection, site not specified; I11.0 Hypertensive heart disease with heart failure; F32.9 Major depressive disorder, single episode, unspecified; F41.9 Anxiety disorder, unspecified; E78.00 Pure hypercholesterolemia, unspecified; H91.91 Unspecified hearing loss, right ear; I25.10 Atherosclerotic heart disease of native coronary artery without angina pectoris; Z95.5 Presence of coronary angioplasty implant and graft; I25.2 Old myocardial infarction; F17.210 Nicotine dependence, cigarettes, uncomplicated; F12.90 Cannabis use, unspecified, uncomplicated; Z87.820 Personal history of traumatic brain injury; G83.84 Todd's paralysis (postepileptic); I25.5 Ischemic cardiomyopathy; G93.89 Other specified disorders of brain; F10.10 Alcohol abuse, uncomplicated
CPT/HCPCS: 31500; 36600; 70450; 70496; 70498; 70553; 71010; 76937; 80048; 80053; 80061; 80156; 80185; 80307; 81001; 82010; 82435; 82550; 82552; 82565; 82805; 82947; 82948; 83605; 83735; 84100; 84132; 84295; 84443; 84484; 84520; 85025; 85384; 85610; 85730; 86403; 86850; 86900; 86901; 87040; 87077; 87186; 87205; 87641; 93005; 93306; 94002; 94003; 94150; 94640; 94664; 95819; 96374; 96375; 96376; A9579; J0360; J0610; J0692; J0696; J1170; J1644; J1815; J1940; J3010; J3370; J3411; J7030; J7040; P9612; Q2009; Q9967